=== PATIENT | male | born 1955 | race Hispanic/Latino ===

== ENCOUNTER → 2016-06-08 | Outpatient (REF) | payer OTHER ==
[2016-06-08 21:30] LABS: RETIC HEMOGLOBIN CONTENT CHr 30.7 PG (24-36); RETICULOCYTE ABSOLUTE ADVIA212 95 x10(9)/L (17-77)
[2016-06-08 21:36] LABS: REASON FOR REVIEW COMPREHENSIVE REVIEW
[2016-06-09 09:48] LABS: CONTROL LINE INT CTR LINE PRESENT; HIV SCRN NEGATIVE (NEGATIVE); HIV SCRN1 NEGATIVE (NEGATIVE)
== END ==
LOC: M LAB REF 16:58
PROVIDERS: ATTEND Internal Medicine Medical Oncology
DX: D61.818 Other pancytopenia (principal); D72.819 Decreased white blood cell count, unspecified
CPT/HCPCS: 85046; 86038; 86705; 87340; 87806; G0472

== ENCOUNTER → 2016-06-10 | Outpatient (CLI) | payer OTHER ==
--- NOTE | 2016-06-10 12:02 | REP ---
Left upper quadrant sonography: History: Splenomegaly. Findings: There is massive splenomegaly. The spleen is homogeneous. Its dimensions are 28.0 x 10.8 x 22.0 cm. No focal splenic lesion is seen. No ascites is seen. Limited images of the kidney are obtained. The left kidney is somewhat displaced by the splenomegaly. Its dimensions are 13.9 x 5.9 x 6.0 cm. There is no evidence of hydronephrosis cyst or mass in the left kidney. Impression: Massive splenomegaly. No focal splenic lesion. Signed by Rishi Peguero MD 06/10/2016 01:55 P
== END ==
LOC: M RAD 07:57
PROVIDERS: ATTEND Internal Medicine Medical Oncology
DX: R16.1 Splenomegaly, not elsewhere classified (principal)

== ENCOUNTER → 2016-07-06 | Outpatient (REF) | payer OTHER | LOC: M LAB REF 16:48 | PROVIDERS: ATTEND Internal Medicine Medical Oncology | DX: C95.90 Leukemia, unspecified not having achieved remission (principal) ==

== ENCOUNTER → 2016-07-23 | Outpatient (CLI) | payer OTHER, SELFPAY ==
--- NOTE | 2016-07-23 16:35 | REP ---
Abdominal MRI scanning without and with IV gadolinium: History: Evaluate portal hypertension. Splenomegaly. Comparison sonography June 10, 2016. Technique: Coronal and axial imaging planes are utilized. T1 and T2-weighted scans were obtained with sequences including spin echo, turbo spin-echo, in and out of phase, and post gadolinium enhanced sequentially obtained 2-D gradient echo T1-weighted fat sat images. Gadolinium enhancement dose is 23 mL of intravenous ProHance. MRI findings: Precontrast T2-weighted imaging confirms the presence of marked splenomegaly. The spleen measures 22 cm in craniocaudal span. No focal splenic lesion is seen. The liver is not enlarged overall. The left lobe does not appear particularly hypertrophied. Right lobe is relatively small. No focal hepatic mass lesion is seen. There is a T2 hyperintense 10 mm cyst in the posterior segment of the right lobe of the liver. There are prominent venous collaterals in the left upper quadrant of the abdomen near the renal hilus. The left renal vein and the splenic vein are both prominent in size. The portal vein does not appear dilated. No cholelithiasis is appreciated. No pancreatic abnormalities observed. On post gadolinium enhanced images, no hepatic or splenic lesion is observed. The left upper quadrant venous collaterals opacify homogeneously. Impression: Splenomegaly and visceral venous collaterals in the left upper quadrant compatible with portal hypertension. No focal hepatic or splenic lesion is seen. There is moderate to marked splenomegaly. Signed by Rishi Peguero MD 07/23/2016 05:02 P
== END ==
LOC: M RAD 13:36
PROVIDERS: ATTEND Internal Medicine Medical Oncology
DX: R16.1 Splenomegaly, not elsewhere classified (principal)
CPT/HCPCS: 74183; A9576

== ENCOUNTER → 2016-09-13 | Outpatient (CLI) | payer OTHER ==
[~2016-09-13] MED LIST: ISOVUE-370 76% 100ML VIAL (Q9967) As Ordered ONE
--- NOTE | 2016-09-13 13:40 | REP ---
CT angiogram of the neck with IV contrast: History: Aneurysm of the carotid arteries. No comparison CT angiogram. Carotid duplex sonography from March 24, 2016 was interpreted showing minimal atherosclerotic plaquing. CT contrast dose: 75 ml of intravenous Isovue 370. CT technique: Helical scanning is acquired and 2 mm axial images are reformatted. Coronal and sagittal multiplanar re-formation images are generated and reviewed. Coronal MIP and bilateral internal carotid artery curved MIP images are reformatted. 3-D surface rendered color imaging is generated. CT angiographic findings: There is a peculiar pattern of innumerable calcifications involving the skin of the face, head and neck region in this patient consistent with chronic dermatologic condition. The thoracic aorta contains a few areas of calcification. The innominate and left carotid artery have a common origin from the thoracic aorta, bovine arch configuration as a variant. The subclavian arteries are unremarkable bilaterally. There is no evidence of common or internal carotid artery aneurysm on either side. Vertebral arteries are patent. There is mild tortuosity of the internal carotid arteries bilaterally. There is mild calcific plaquing at the carotid bifurcations on both sides but no high-grade stenosis is seen on either side. The distal internal carotid arteries are unremarkable. The basilar artery appears intact. Impression: 1. Mild atherosclerotic calcific plaquing and tortuosity of the carotid arteries bilaterally. No evidence of aneurysm or significant stenosis. 2. Incidental evidence of chronic dermatologic condition with innumerable multifocal dermal calcifications. Signed by Rishi Peguero MD 09/13/2016 03:43 P
== END ==
LOC: M RAD 10:45
PROVIDERS: ATTEND Physician Assistant
DX: I72.0 Aneurysm of carotid artery (principal)
CPT/HCPCS: 70498; Q9967

== ENCOUNTER → 2016-09-27 | Outpatient (REF) | payer OTHER ==
[2016-09-27 13:25] LABS: TOTAL PROTEIN 6.6 GM/DL (6.4-8.2)
[2016-09-28 12:42] LABS: ALBUMIN 3.48 GM/DL (3.29-5.55); ALBUMIN % 52.8 % (55.8-66.1); GAMMA GLOBULIN % 21.8 % (11.1-18.8)
[2016-09-29 00:10] LABS: CYTOMEGALOVIRUS IgG ANTIBODY <0.60 U/mL (0.00-0.59)
== END ==
LOC: M LAB REF 12:48
PROVIDERS: ATTEND Internal Medicine Medical Oncology
DX: D72.819 Decreased white blood cell count, unspecified (principal)

== ENCOUNTER → 2017-10-18 | Outpatient (REF) | payer BC ==
[2017-10-18 12:04] LABS: BASO % 1.5 % (0.0-1.0); EOS # 0.3 10^3/uL (0.0-0.50); EOS % 12.4 % (0.0-3.0); HEMATOCRIT 40.9 % (42.0-52.0); HEMOGLOBIN 13.2 g/dl (13.5-17.5); IMMATURE GRANULOCYTE % 0.4 % (0-3.0); LYMPH # 0.4 10^3/uL (1.5-4.5); MEAN CORPUSCULAR HEMOGLOBIN 29.8 pg (27.0-33.0); MEAN CORPUSCULAR HGB CONC 32.3 g/dl (32.0-36.5); MEAN CORPUSCULAR VOLUME 92.3 fl (80.0-96.0); MONO # 0.2 10^3/uL (0.0-0.8); MONO % 6.9 % (0.0-5.0); NEUTROPHILS # 1.6 10^3/uL (1.8-7.7); NEUTROPHILS % 61.8 % (36.0-66.0); RED BLOOD COUNT 4.43 10^6/uL (4.30-6.10); RED CELL DISTRIBUTION WIDTH 16.9 % (11.5-14.5); WHITE BLOOD COUNT 2.6 10^3/uL (4.0-10.0)
[2017-10-18 12:06] LABS: PLATELET COUNT, AUTOMATED 65 10^3/uL (150-450)
[2017-10-18 12:08] LABS: IMMATURE PLATELET FRACTION % 4.3 % (0.0-10.9)
[2017-10-18 12:15] LABS: PROTHROMBIN TIME 18.5 SECONDS (12.4-14.5)
[2017-10-18 12:16] LABS: ALBUMIN 3.2 GM/DL (3.2-5.2); ALBUMIN/GLOBULIN RATIO 0.84 (1.00-1.93); ALKALINE PHOSPHATASE 81 U/L (45-117); ALT/SGPT 34 U/L (12-78); ANION GAP 6 MEQ/L (8-16); AST/SGOT 49 U/L (7-37); BILIRUBIN,DIRECT 0.7 MG/DL (0.0-0.2); BILIRUBIN,TOTAL 1.6 MG/DL (0.2-1.0); BLOOD UREA NITROGEN 6 MG/DL (7-18); CALCIUM LEVEL 8.6 MG/DL (8.8-10.2); CARBON DIOXIDE LEVEL 29 MEQ/L (21-32); CHLORIDE LEVEL 109 MEQ/L (98-107); CHOLESTEROL LEVEL 159 MG/DL (<200); CHOLESTEROL RISK RATIO 2.271 (<5); CREATININE FOR GFR 0.53 MG/DL (0.70-1.30); GAMMA GLUTAMYLTRANSPEPTIDASE 70 U/L (15-85); GLOMERULAR FILTRATION RATE > 60.0 (>49); GLUCOSE, FASTING 111 MG/DL (70-100); HDL CHOLESTEROL 70 MG/DL (>40); LDH LACTATE DEHYDROGENASE 297 U/L (87-241); LDL CHOLESTEROL 74.2 MG/DL (<100); MAGNESIUM LEVEL 1.8 MG/DL (1.8-2.4); NON-HDL-C 89 MG/DL; PARTIAL THROMBOPLASTIN TIME 34.4 SECONDS (26.8-37.9); POTASSIUM SERUM 4.1 MEQ/L (3.5-5.1); SODIUM LEVEL 144 MEQ/L (136-145); TRIGLYCERIDES LEVEL 74 MG/DL (<150)
[2017-10-18 12:18] LABS: PTH INTACT 42.9 PG/ML (18.5-88.0)
[2017-10-18 12:22] LABS: ESTIMATED AVERAGE GLUCOSE 108 MG/DL (60-110); HEMOGLOBIN A1c 5.4 %
[2017-10-18 12:29] LABS: AMMONIA 108 uMOL/L (<32)
[2017-10-18 12:45] LABS: TOTAL 25(OH) VITAMIN D 5.8 NG/ML (30.0-100.0)
[2017-10-18 15:37] LABS: APPEARANCE, URINE CLEAR (CLEAR); BACTERIA, URINE AUTO NEGATIVE (NEGATIVE); BILIRUBIN, URINE AUTO NEGATIVE (NEGATIVE); BLOOD, URINE BLOOD NEGATIVE (NEGATIVE); COLOR, URINE YELLOW (YELLOW); GLUCOSE, URINE (UA) AUTO NEGATIVE (NEGATIVE); KETONE, URINE AUTO NEGATIVE (NEGATIVE); LEUKOCYTE ESTERASE, URINE AUTO NEGATIVE (NEGATIVE); NITRITE, URINE AUTO NEGATIVE (NEGATIVE); PROTEIN, URINE AUTO NEGATIVE (NEGATIVE); RBC, URINE AUTO 4 /HPF (0-3); SPECIFIC GRAVITY URINE AUTO 1.017 (1.002-1.035); SQUAMOUS EPITHELIAL CELL UR AU 0 /HPF (0-6); WBC, URINE AUTO 1 /HPF (0-3)
[2017-10-21 00:07] LABS: GLYCOPROTEIN IV ANTIBODY Negative (Negative); HLA CLASS 1 ANTIBODY Negative (Negative); IIb/IIIa ANTIBODY Negative (Negative); Ia/IIa ANTIBODY Positive (Negative); Ib/IX ANTIBODY Negative (Negative)
== END ==
LOC: M SFHCPLAZ 09:59
DX: R16.1 Splenomegaly, not elsewhere classified (principal); K76.6 Portal hypertension; R73.09 Other abnormal glucose; Z13.220 Encounter for screening for lipoid disorders; D69.6 Thrombocytopenia, unspecified; E55.9 Vitamin D deficiency, unspecified
CPT/HCPCS: 82140

== ENCOUNTER → 2017-12-02 | Outpatient (CLI) | payer BC ==
[2017-12-02 12:47] LABS: ALBUMIN 3.3 GM/DL (3.2-5.2); ALBUMIN/GLOBULIN RATIO 0.89 (1.00-1.93); ALKALINE PHOSPHATASE 71 U/L (45-117); ALT/SGPT 34 U/L (12-78); ANION GAP 7 MEQ/L (8-16); AST/SGOT 65 U/L (7-37); BLOOD UREA NITROGEN 7 MG/DL (7-18); CALCIUM LEVEL 8.4 MG/DL (8.8-10.2); CARBON DIOXIDE LEVEL 27 MEQ/L (21-32); CHLORIDE LEVEL 106 MEQ/L (98-107); CREATININE FOR GFR 0.67 MG/DL (0.70-1.30); GLOMERULAR FILTRATION RATE > 60.0 (>49); GLUCOSE, FASTING 110 MG/DL (70-100); POTASSIUM SERUM 4.7 MEQ/L (3.5-5.1); SODIUM LEVEL 140 MEQ/L (136-145)
[2017-12-02 13:30] LABS: BILIRUBIN,DIRECT 1.1 MG/DL (0.0-0.2)
== END ==
LOC: M LAB 11:32
DX: R94.5 Abnormal results of liver function studies (principal)
CPT/HCPCS: 82248

== ENCOUNTER → 2017-12-06 | Outpatient (CLI) | payer BC | LOC: M CARPUL 11:32 | DX: I35.8 Other nonrheumatic aortic valve disorders (principal) | CPT/HCPCS: 93306 ==

== ENCOUNTER → 2017-12-16 | Outpatient (CLI) | payer BC ==
[2017-12-16 12:19] LABS: IRON (FE) 48 UG/DL (65-175); PERCENT SATURATION 12.8 % (19.7-50.0); TOTAL IRON BINDING CAPACITY 374 UG/DL (250-450)
[2017-12-16 12:21] LABS: HEPATITIS B SURFACE ANTIGEN NEGATIVE (NEGATIVE)
[2017-12-16 12:48] LABS: HEPATITIS C VIRUS ABY INDEX 0.1 INDEX (<0.8)
[2017-12-16 12:49] LABS: HEPATITIS B CORE ANTIBODY IGM NEGATIVE (NEGATIVE)
[2017-12-16 12:50] LABS: HEPATITIS A ANTIBODY IGM NEGATIVE (NEGATIVE)
[2017-12-22 00:08] LABS: ANCA-ATYPICAL <1:20 titer (Neg:<1:20); ANTI-MITOCHONDRIAL ANTIBODY 10.7 Units (0.0-20.0); ANTINUCLEAR ANTIBODIES DIRECT Negative (Negative); CERULOPLASMIN 19.6 mg/dL (16.0-31.0); CYTOPLASMIC NEUTROP AB ANCA-C <1:20 titer (Neg:<1:20); PERINUCLEAR AB ANCA-P <1:20 titer (Neg:<1:20)
== END ==
LOC: M LAB 11:09
DX: R94.5 Abnormal results of liver function studies (principal)
CPT/HCPCS: 83550

== ENCOUNTER → 2018-01-04 | Outpatient (REF) | payer BC ==
[2018-01-04 12:40] LABS: EOS # 0.2 10^3/uL (0.0-0.50); EOS % 8.2 % (0.0-3.0); HEMATOCRIT 40.5 % (42.0-52.0); HEMOGLOBIN 13.5 g/dl (13.5-17.5); LYMPH # 0.4 10^3/uL (1.5-4.5); LYMPH % 19.7 % (24.0-44.0); MEAN CORPUSCULAR HEMOGLOBIN 30.8 pg (27.0-33.0); MEAN CORPUSCULAR HGB CONC 33.3 g/dl (32.0-36.5); MEAN CORPUSCULAR VOLUME 92.5 fl (80.0-96.0); MONO # 0.2 10^3/uL (0.0-0.8); MONO % 8.2 % (0.0-5.0); NEUTROPHILS # 1.3 10^3/uL (1.8-7.7); NEUTROPHILS % 62.9 % (36.0-66.0); RED BLOOD COUNT 4.38 10^6/uL (4.30-6.10); RED CELL DISTRIBUTION WIDTH 16.7 % (11.5-14.5); WHITE BLOOD COUNT 2.1 10^3/uL (4.0-10.0)
[2018-01-04 12:42] LABS: PROTHROMBIN TIME 18.4 SECONDS (12.1-14.4)
[2018-01-04 12:43] LABS: PARTIAL THROMBOPLASTIN TIME 33.7 SECONDS (25.4-37.6)
[2018-01-04 12:45] LABS: PLATELET COUNT, AUTOMATED 49 10^3/uL (150-450)
[2018-01-04 12:46] LABS: IMMATURE PLATELET FRACTION % 3.8 % (0.0-10.9)
[2018-01-04 14:19] LABS: PTH INTACT 30.4 PG/ML (18.5-88.0); TOTAL 25(OH) VITAMIN D 18.5 NG/ML (30.0-100.0)
[2018-01-04 14:42] LABS: ALBUMIN 3.1 GM/DL (3.2-5.2); ALBUMIN/GLOBULIN RATIO 0.79 (1.00-1.93); ALKALINE PHOSPHATASE 65 U/L (45-117); ALT/SGPT 35 U/L (12-78); ANION GAP 9 MEQ/L (8-16); AST/SGOT 51 U/L (7-37); BILIRUBIN,TOTAL 3.2 MG/DL (0.2-1.0); BLOOD UREA NITROGEN 7 MG/DL (7-18); CALCIUM LEVEL 8.8 MG/DL (8.8-10.2); CARBON DIOXIDE LEVEL 27 MEQ/L (21-32); CHLORIDE LEVEL 106 MEQ/L (98-107); CREATININE FOR GFR 0.45 MG/DL (0.70-1.30); FREE T4 0.97 NG/DL (0.76-1.46); GLOMERULAR FILTRATION RATE > 60.0 (>49); GLUCOSE, FASTING 97 MG/DL (70-100); NT-PRO BNP 46 PG/ML (<125); SODIUM LEVEL 142 MEQ/L (136-145)
[2018-01-04 15:47] LABS: ESTIMATED AVERAGE GLUCOSE 105 MG/DL (60-110); HEMOGLOBIN A1c 5.3 %
[2018-01-05 14:18] LABS: INSULIN LEVEL 28.5 uIU/mL (2.6-24.9)
== END ==
LOC: M SFHCPLAZ 09:54
DX: E55.9 Vitamin D deficiency, unspecified (principal); D70.9 Neutropenia, unspecified; K76.6 Portal hypertension; R73.01 Impaired fasting glucose
CPT/HCPCS: 83525

== ENCOUNTER 2018-01-24 10:11 | Day surgery (SDC) | payer BC ==
[~2018-01-24 10:11] MED LIST changes: -ISOVUE-370 76% 100ML VIAL (Q9967) As Ordered ONE; +LIDOCAINE 2% INJ 100 MG/5 ML SDV (FOR ANES.) As Ordered; +PROPOFOL 200 MG/20 ML VIAL As Ordered; +fentaNYL 100 MCG/2 ML INJECTION (J3010) As Ordered
[2018-01-24] MEDS: NS 1,000 ML IV ×2 (11:32)
[2018-01-24] MEDS ORDERED: METOPROLOL 5 MG/5 ML VIAL As Ordered ×2 (13:25)
[2018-01-24] MEDS ORDERED: ESMOLOL INJ 100MG/10ML VIAL As Ordered ×2 (13:25)
[2018-01-24] MEDS ORDERED: PROPOFOL 200 MG/20 ML VIAL As Ordered ×4 (13:30→13:31)
== END 2018-01-24 14:31 | disposition home or self-care (01) ==
LOC: M OPP 10:11
DX: Z12.11 Encounter for screening for malignant neoplasm of colon (principal); K64.8 Other hemorrhoids; K74.60 Unspecified cirrhosis of liver; I85.10 Secondary esophageal varices without bleeding; K29.70 Gastritis, unspecified, without bleeding; B96.81 Helicobacter pylori [H. pylori] as the cause of diseases classified elsewhere; K76.6 Portal hypertension; I10 Essential (primary) hypertension; R16.1 Splenomegaly, not elsewhere classified; D72.819 Decreased white blood cell count, unspecified; D69.6 Thrombocytopenia, unspecified; M19.90 Unspecified osteoarthritis, unspecified site; R06.83 Snoring
CPT/HCPCS: G0121

== ENCOUNTER → 2018-01-31 | Outpatient (CLI) | payer BC | LOC: M RAD 07:13 | DX: K74.60 Unspecified cirrhosis of liver (principal) | CPT/HCPCS: 76705 ==

== ENCOUNTER → 2018-02-13 | Outpatient (CLI) | payer BC ==
[2018-02-13 17:00] LABS: INR 1.57
[2018-02-13 17:01] LABS: PARTIAL THROMBOPLASTIN TIME 36.1 SECONDS (25.4-37.6)
[2018-02-13 17:14] LABS: ALBUMIN 3.4 GM/DL (3.2-5.2); ALBUMIN/GLOBULIN RATIO 0.92 (1.00-1.93); ALKALINE PHOSPHATASE 65 U/L (45-117); ALT/SGPT 38 U/L (12-78); AST/SGOT 68 U/L (7-37); BILIRUBIN,DIRECT 1.1 MG/DL (0.0-0.2); BILIRUBIN,TOTAL 3.4 MG/DL (0.2-1.0); GAMMA GLUTAMYLTRANSPEPTIDASE 63 U/L (15-85); TOTAL PROTEIN 7.1 GM/DL (6.4-8.2)
[2018-02-14 11:21] LABS: ALPHA FETOPROTEIN TUMOR QUANT 3.7 NG/ML (<8.1)
== END ==
LOC: M LAB 15:46
DX: K74.60 Unspecified cirrhosis of liver (principal)
CPT/HCPCS: 82977

== ENCOUNTER → 2018-02-13 | Outpatient (CLI) | payer BC ==
[2018-02-13 16:45] LABS: BASO % 1.3 % (0.0-1.0); EOS # 0.3 10^3/uL (0.0-0.50); HEMATOCRIT 42.5 % (42.0-52.0); HEMOGLOBIN 14.1 g/dl (13.5-17.5); IMMATURE GRANULOCYTE % 0.4 % (0-3.0); LYMPH # 0.4 10^3/uL (1.5-4.5); LYMPH % 18.4 % (24.0-44.0); MEAN CORPUSCULAR HGB CONC 33.2 g/dl (32.0-36.5); MEAN CORPUSCULAR VOLUME 93.4 fl (80.0-96.0); MONO # 0.2 10^3/uL (0.0-0.8); NEUTROPHILS # 1.4 10^3/uL (1.8-7.7); NEUTROPHILS % 61.9 % (36.0-66.0); RED BLOOD COUNT 4.55 10^6/uL (4.30-6.10); RED CELL DISTRIBUTION WIDTH 16.8 % (11.5-14.5); RETIC HEMOGLOBIN EQUIVALENT 34.8 pg (24-36); RETICULOCYTE # 64.2 10^9/L (17-77); RETICULOCYTE % 1.4 % (0.5-1.5); WHITE BLOOD COUNT 2.3 10^3/uL (4.0-10.0)
[2018-02-13 16:55] LABS: ESTIMATED AVERAGE GLUCOSE 114 MG/DL (60-110); HEMOGLOBIN A1c 5.6 %
[2018-02-13 17:17] LABS: ALBUMIN 3.3 GM/DL (3.2-5.2); ALBUMIN/GLOBULIN RATIO 0.85 (1.00-1.93); ALKALINE PHOSPHATASE 65 U/L (45-117); ALT/SGPT 39 U/L (12-78); ANION GAP 8 MEQ/L (8-16); AST/SGOT 66 U/L (7-37); BILIRUBIN,TOTAL 3.5 MG/DL (0.2-1.0); BLOOD UREA NITROGEN 6 MG/DL (7-18); CALCIUM LEVEL 8.2 MG/DL (8.8-10.2); CARBON DIOXIDE LEVEL 30 MEQ/L (21-32); CHLORIDE LEVEL 107 MEQ/L (98-107); CREATININE FOR GFR 0.59 MG/DL (0.70-1.30); FERRITIN 35 NG/ML (26-388); GLOMERULAR FILTRATION RATE > 60.0 (>49); GLUCOSE, FASTING 95 MG/DL (70-100); IRON (FE) 260 UG/DL (65-175); MAGNESIUM LEVEL 1.8 MG/DL (1.8-2.4); PERCENT SATURATION 74.5 % (19.7-50.0); POTASSIUM SERUM 3.6 MEQ/L (3.5-5.1); SODIUM LEVEL 145 MEQ/L (136-145); TOTAL IRON BINDING CAPACITY 349 UG/DL (250-450); TOTAL PROTEIN 7.2 GM/DL (6.4-8.2)
[2018-02-13 17:25] LABS: PTH INTACT 43.9 PG/ML (18.5-88.0); TOTAL 25(OH) VITAMIN D 27.5 NG/ML (30.0-100.0)
[2018-02-13 17:34] LABS: PLATELET COUNT, AUTOMATED 71 10^3/uL (150-450); POS COUNT POS FLAG
[2018-02-13 17:35] LABS: IMMATURE PLATELET FRACTION % 4.3 % (0.0-10.9)
== END ==
LOC: M LAB 15:44
DX: D69.6 Thrombocytopenia, unspecified (principal)
CPT/HCPCS: 83550

== ENCOUNTER → 2018-02-27 | Outpatient (CLI) | payer BC ==
[~2018-02-27] MED LIST changes: +GASTROGRAFIN SOLUTION 30ML (Q9963) As Ordered; +ISOVUE-370 76% 100ML VIAL (Q9967) As Ordered; -LIDOCAINE 2% INJ 100 MG/5 ML SDV (FOR ANES.) As Ordered; -PROPOFOL 200 MG/20 ML VIAL As Ordered; -fentaNYL 100 MCG/2 ML INJECTION (J3010) As Ordered
== END ==
LOC: M RAD 07:49
DX: R16.1 Splenomegaly, not elsewhere classified (principal); R94.5 Abnormal results of liver function studies; K76.6 Portal hypertension; K74.60 Unspecified cirrhosis of liver; K76.89 Other specified diseases of liver; K57.30 Diverticulosis of large intestine without perforation or abscess without bleeding
CPT/HCPCS: Q9963

== ENCOUNTER → 2018-09-21 | Outpatient (CLI) | payer BC ==
[~2018-09-21] MED LIST changes: -GASTROGRAFIN SOLUTION 30ML (Q9963) As Ordered; +IRON27TA2 PO; -ISOVUE-370 76% 100ML VIAL (Q9967) As Ordered; +VITA50005 PO
[2018-09-21 15:20] LABS: BASO % 0.5 % (0.0-1.0); EOS # 0.1 10^3/uL (0.0-0.50); EOS % 6.5 % (0.0-3.0); HEMATOCRIT 41.8 % (42.0-52.0); HEMOGLOBIN 13.9 g/dl (13.5-17.5); LYMPH # 0.4 10^3/uL (1.5-4.5); LYMPH % 21.2 % (24.0-44.0); MEAN CORPUSCULAR HEMOGLOBIN 31.4 pg (27.0-33.0); MEAN CORPUSCULAR HGB CONC 33.3 g/dl (32.0-36.5); MEAN CORPUSCULAR VOLUME 94.6 fl (80.0-96.0); MONO # 0.2 10^3/uL (0.0-0.8); MONO % 8.2 % (0.0-5.0); NEUTROPHILS # 1.2 10^3/uL (1.8-7.7); NEUTROPHILS % 63.1 % (36.0-66.0); RED BLOOD COUNT 4.42 10^6/uL (4.30-6.10)
[2018-09-21 15:46] LABS: ALBUMIN 3.2 GM/DL (3.2-5.2); ALT/SGPT 31 U/L (12-78); BLOOD UREA NITROGEN 5 MG/DL (7-18); CALCIUM LEVEL 8.7 MG/DL (8.8-10.2); CARBON DIOXIDE LEVEL 30 MEQ/L (21-32); CHLORIDE LEVEL 110 MEQ/L (98-107); CREATININE FOR GFR 0.57 MG/DL (0.70-1.30); FERRITIN 52 NG/ML (26-388); GLOMERULAR FILTRATION RATE > 60.0 (>49); GLUCOSE, FASTING 126 MG/DL (70-100); IRON (FE) 47 UG/DL (65-175); MAGNESIUM LEVEL 1.8 MG/DL (1.8-2.4); SODIUM LEVEL 143 MEQ/L (136-145); TOTAL IRON BINDING CAPACITY 336 UG/DL (250-450); TOTAL PROTEIN 6.5 GM/DL (6.4-8.2)
[2018-09-21 15:55] LABS: PTH INTACT 36.1 PG/ML (18.5-88.0); TOTAL 25(OH) VITAMIN D 11.6 NG/ML (30.0-100.0)
[2018-09-21 15:56] LABS: HEMOGLOBIN A1c 5.7 %
[2018-09-21 16:23] LABS: PLATELET COUNT, AUTOMATED 58 10^3/uL (150-450); WHITE BLOOD COUNT 1.8 10^3/uL (4.0-10.0)
== END ==
LOC: M LAB 14:47
PROVIDERS: ATTEND Nurse Practitioner Family
DX: E55.9 Vitamin D deficiency, unspecified (principal); D69.6 Thrombocytopenia, unspecified; K76.6 Portal hypertension; R73.01 Impaired fasting glucose; D50.9 Iron deficiency anemia, unspecified

== ENCOUNTER → 2018-09-21 | Outpatient (CLI) | payer BC ==
[2018-09-21 15:19] LABS: EOS # 0.1 10^3/uL (0.0-0.50); EOS % 6.1 % (0.0-3.0); HEMOGLOBIN 14.3 g/dl (13.5-17.5); LYMPH # 0.4 10^3/uL (1.5-4.5); LYMPH % 18.9 % (24.0-44.0); MEAN CORPUSCULAR HEMOGLOBIN 32.3 pg (27.0-33.0); MEAN CORPUSCULAR HGB CONC 33.3 g/dl (32.0-36.5); MEAN CORPUSCULAR VOLUME 97.1 fl (80.0-96.0); MONO # 0.2 10^3/uL (0.0-0.8); MONO % 9.2 % (0.0-5.0); NEUTROPHILS # 1.3 10^3/uL (1.8-7.7); NEUTROPHILS % 64.3 % (36.0-66.0); RED BLOOD COUNT 4.43 10^6/uL (4.30-6.10)
[2018-09-21 15:27] LABS: INR 1.4; PROTHROMBIN TIME 17.4 SECONDS (12.1-14.4)
[2018-09-21 15:46] LABS: ALBUMIN 3.3 GM/DL (3.2-5.2); ALT/SGPT 32 U/L (12-78); BLOOD UREA NITROGEN 6 MG/DL (7-18); CALCIUM LEVEL 8.8 MG/DL (8.8-10.2); CARBON DIOXIDE LEVEL 30 MEQ/L (21-32); CHLORIDE LEVEL 110 MEQ/L (98-107); CREATININE FOR GFR 0.57 MG/DL (0.70-1.30); GLOMERULAR FILTRATION RATE > 60.0 (>49); GLUCOSE, FASTING 127 MG/DL (70-100); POTASSIUM SERUM 4.1 MEQ/L (3.5-5.1); SODIUM LEVEL 143 MEQ/L (136-145); TOTAL PROTEIN 6.5 GM/DL (6.4-8.2)
[2018-09-21 16:22] LABS: PLATELET COUNT, AUTOMATED 54 10^3/uL (150-450)
== END ==
LOC: M LAB 14:44
PROVIDERS: ATTEND Internal Medicine Gastroenterology
DX: K74.60 Unspecified cirrhosis of liver (principal)

== ENCOUNTER → 2018-10-05 | Outpatient (CLI) | payer BC ==
[~2018-10-05] MED LIST changes: +PROHANCE 279.3MG/ML 15ML VIAL (A9576) As Ordered ONE; +PROHANCE 279.3MG/ML 5ML VIAL (A9576) As Ordered ONE
--- NOTE | 2018-10-05 11:33 | REP ---
MRI LIVER WITH AND WITHOUT CONTRAST: TECHNIQUE: Multiple axial and coronal sequences obtained prior to and following the intravenous administration of [address] 02/27/2018 and MRI of 07/23/2016. Liver is relatively small in size with micronodular contour and diffuse heterogeneous signal suggesting cirrhosis. 1 cm cyst is seen in the left lobe of the liver. There is an 8 mm cyst in the right lobe of the liver. There is no suspicious enhancing mass. There is no evidence of significant iron deposition in the liver. Gallbladder is contracted. There is no biliary dilatation. Spleen is enlarged with a length of approximately 22.6 cm. Length on prior MRI was 21.6 cm. Adrenals and pancreas appear unremarkable. Large varices are seen in the splenic hilum. Visualized kidneys are unremarkable. There is no abdominal aortic aneurysm. I see no significant adenopathy or ascites. IMPRESSION: Findings compatible with cirrhosis of the liver. Small cyst is seen in both the right and left lobes. No suspicious mass or significant iron deposition. Gallbladder is contracted. There is significant splenomegaly with splenorenal varices present. Electronically Signed by Alexander Mcadams MD 10/05/2018 04:31 P
== END ==
LOC: M RAD 07:18
PROVIDERS: ATTEND Internal Medicine Gastroenterology
DX: K74.60 Unspecified cirrhosis of liver (principal); K76.89 Other specified diseases of liver
CPT/HCPCS: 74183; A9576

== ENCOUNTER → 2018-11-21 | Outpatient (CLI) | payer BC ==
[~2018-11-21] MED LIST changes: +FERR325T82; +OMEP-221; -PROHANCE 279.3MG/ML 15ML VIAL (A9576) As Ordered ONE; -PROHANCE 279.3MG/ML 5ML VIAL (A9576) As Ordered ONE
[2018-11-21 12:11] LABS: ALBUMIN 3.3 GM/DL (3.2-5.2); BLOOD UREA NITROGEN 14 MG/DL (7-18); CALCIUM LEVEL 8.5 MG/DL (8.8-10.2); CARBON DIOXIDE LEVEL 34 MEQ/L (21-32); CHLORIDE LEVEL 103 MEQ/L (98-107); CREATININE FOR GFR 0.68 MG/DL (0.70-1.30); GLOMERULAR FILTRATION RATE > 60.0 (>49); GLUCOSE, FASTING 86 MG/DL (70-100); MAGNESIUM LEVEL 1.9 MG/DL (1.8-2.4); NT-PRO BNP 47 PG/ML (<125); POTASSIUM SERUM 3.8 MEQ/L (3.5-5.1); SODIUM LEVEL 141 MEQ/L (136-145)
== END ==
LOC: M LAB 10:32
PROVIDERS: ATTEND Internal Medicine Cardiovascular Disease
DX: I50.32 Chronic diastolic (congestive) heart failure (principal)

== ENCOUNTER 2020-01-21 12:30 | Inpatient (IN) | payer SELFPAY ==
[~2020-01-21] VITALS: Ht 170.2 cm; Wt 96.7 kg
[~2020-01-21 12:30] MED LIST changes: +FUROSEMIDE 40MG/4ML VIAL (J1940) IV SCH
--- NOTE | 2020-01-21 13:08 | REPVR ---
PROCEDURE INFORMATION: Exam: XR Chest, 1 View Exam date and time: 01/21/2020 12:53 PM Age: 64 years old Clinical indication: Cough and dyspnea; Additional info: Dyspnea/cough TECHNIQUE: Imaging protocol: XR of the chest Views: 1 view. COMPARISON: No relevant prior studies available. FINDINGS: Lungs: There is mild pulmonary congestive changes or perhaps early edema. Pleural space: Costophrenic angles appears slightly blunted. Heart/Mediastinum: There is cardiomegaly. Bones/joints: Unremarkable. IMPRESSION: Suspect mild CHF. Electronically signed by: Jarret Brock On 01/21/2020 13:07:34 PM
[2020-01-21 13:16] LABS: VENOUS BASE EXCESS 5.9 (-2.0-2.0); VENOUS HCO3 32.7 MEQ/L (23.0-27.0); VENOUS O2 SATURATION 70.1 % (60.0-80.0); VENOUS PARTIAL PRESSURE CO2 54.2 mmHg (38.0-50.0); VENOUS PARTIAL PRESSURE O2 37.4 mmHg (30.0-50.0); VENOUS PH 7.399 UNITS (7.330-7.430); VENOUS STANDARD HCO3 28.9 MEQ/L; VENOUS TOTAL CO2 34.4 MEQ/L (24.0-28.0)
[2020-01-21 13:22] LABS: BASO % 0.5 % (0.0-1.0); EOS # 0.1 10^3/uL (0.0-0.5); EOS % 1.4 % (0.0-3.0); HEMATOCRIT 50.7 % (42.0-52.0); HEMOGLOBIN 17.2 g/dl (13.5-17.5); LYMPH # 0.3 10^3/uL (1.5-5.0); LYMPH % 3.9 % (24.0-44.0); MEAN CORPUSCULAR HEMOGLOBIN 33.3 pg (27.0-33.0); MEAN CORPUSCULAR HGB CONC 33.9 g/dl (32.0-36.5); MEAN CORPUSCULAR VOLUME 98.1 fl (80.0-96.0); MONO # 0.5 10^3/uL (0.0-0.8); NEUTROPHILS # 5.5 10^3/uL (1.5-8.5); NEUTROPHILS % 85.9 % (36.0-66.0); PLATELET COUNT, AUTOMATED 100 10^3/uL (150-450); RED BLOOD COUNT 5.17 10^6/uL (4.30-6.10); WHITE BLOOD COUNT 6.4 10^3/uL (4.0-10.0)
[2020-01-21] MEDS ORDERED: FUROSEMIDE 20MG/2ML VIAL (J1940) IV ONE (13:30)
[2020-01-21 13:35] LABS: INR 2.12; PROTHROMBIN TIME 24.3 SECONDS (11.8-14.0)
[2020-01-21 13:54] LABS: ALBUMIN 2.8 GM/DL (3.2-5.2); ALT/SGPT 31 U/L (12-78); BILIRUBIN,DIRECT 2.1 MG/DL (0.0-0.2); BILIRUBIN,TOTAL 6.2 MG/DL (0.2-1.0); BLOOD UREA NITROGEN 5 MG/DL (7-18); CALCIUM LEVEL 8.6 MG/DL (8.8-10.2); CARBON DIOXIDE LEVEL 33 MEQ/L (21-32); CHLORIDE LEVEL 99 MEQ/L (98-107); CK-MB VALUE MASS 1.6 NG/ML (<3.6); CPK CREATINE PHOSPHOKINASE 70 U/L (39-308); CREATININE FOR GFR 0.59 MG/DL (0.70-1.30); GLOMERULAR FILTRATION RATE > 60.0 (>49); GLUCOSE, FASTING 106 MG/DL (70-100); MB/CK RELATIVE INDEX 2.29 (< OR =4); NT-PRO BNP 735 PG/ML (<125); POTASSIUM SERUM 3.6 MEQ/L (3.5-5.1); SODIUM LEVEL 139 MEQ/L (136-145); TOTAL PROTEIN 6.9 GM/DL (6.4-8.2); TROPONIN I < 0.02 NG/ML (< 0.10)
[2020-01-21] MEDS: METOPROLOL 5 MG/5 ML VIAL IV SCH ×3 (14:04→14:36)
[2020-01-21] MEDS ORDERED: METOPROLOL TART 50 MG TAB PO ONE (14:15)
[2020-01-21 15:33] LABS: MAGNESIUM LEVEL 1.5 MG/DL (1.8-2.4)
[2020-01-21] MEDS ORDERED: MAG SULF 1GM/100ML (MAG RUN) 1 GM in IV 1 EA IV ONE (16:00)
[2020-01-21] MEDS ORDERED: ACETAMINOPHEN TAB 650MG DOSE (2X325MG) PO PRN (16:30)
[2020-01-21] MEDS ORDERED: ISOVUE-370 76% 100ML VIAL As Ordered ONE (16:33)
--- NOTE | 2020-01-21 16:55 | HPEPDOC ---
General Date of Admission 01/21/20 Date of Service: Jan 21, 2020 Chief Complaint The patient is a 64-year-old male admitted with a reason for visit of Diff Breathing. Source: Patient Timing/Duration: Day(s) Severity: Moderate History of Present Illness Patient 64 years old male with past medical history of cirrhosis, diastolic CHF, splenomegaly, neutropenia, thrombocytopenia, hypertension presented to the hospital with shortness of breath. Patient stated for past 34 weeks he has been having increased shortness of breath associated with leg swelling and fatigue. Also patient noticed increased abdominal girth. Patient didn't go to primary care physician on the regular basis because insurance issue. In emergency room patient was found to have lactic acid of 2.5, BNP is 735, creatinine 0.5, EKG showed atrial fibrillation with rapid ventricular rate. Chest x-ray showed cardiomegaly with pulmonary congestive changes. Home Medications No Active Prescriptions or Reported Meds Allergies Coded Allergies: No Known Allergies (Unverified , 01/19/18) Past Medical History Medical History MILD CONCENTRIC LVH, GRADE 1 DIASTOLIC DYSFUNCTION, LVEF 70%, LAE 46 MM, MODERATE PHTN, MODERATE AORTIC SCLEROSIS, MILD MR, MILDLY DILATED AORTIC ROOT/AA AND ARCH BY 11/2017 TTE-BERMUDEZ PROBABLE CIRRHOSIS 2 NAFLD (12/2017 -B/C/CHIP/AMA/ANCA PROFILE) C MARKED SPLENOMEGALY COMPATIBLE C PORTAL HTN BY 07/2016 MRI ABDOMEN NEUTROPENIA, CHRONIC; THROMBOCYTOPENIA-07/2016 BM BX S EVIDENCE LEUKEMIA/LYMPHOMA HYPERTENSION, ESSENTIAL R PROXIMAL COMMON CAROTID ARTERY ANEURYSM-DETECTED 07/[address] CARPENTER VITAMIN D DEFICIENCY GRADE II ESOPHAGEAL VARICES C BANDING - 01/[address] CHANDLER SMALL HEMORRHOIDS -01/2018 COLONOSCOPY -DR. Riley 2019 Surgical History GRADE II ESOPHAGEAL VARICES C BANDING - 01/[address] CHANDLER Family History I personally reviewed family history and found not pertinent Social History * Smoker: Denies Alcohol: occationally Drugs: denies A-FIB/CHADSVASC A-FIB History Current/History of A-Fib/PAF?: Yes Current PO Anticoag Therapy: No Age/Risk Factor Scoring CHADSVASC: CHADSVASC Response (Comments) Value Age Risk Factor Age < 65 years old 0 Gender Risk Factor Male 0 Hx of CHF Yes 1 Hx of HTN Yes 1 Total 2 Treatment Treatment ordered: Apixaban Review of Systems Constitutional: Denies: Chills, Fever Eyes: Denies: Pain, Vision change Skin: Denies: Rash, Lesions Pulmonary: Reports: Dyspnea Cardiovascular: Reports: Palpitations; Denies: Chest Pain Gastrointestinal: Denies: Nausea, Vomiting Genitourinary: Denies: Dysuria Endocrine: Denies: Polydipsia, Polyphagia Musculoskeletal: Denies: Neck Pain, Back Pain Neurological: Denies: Weakness Psych: Reports: Mood Normal Physical Examination General Exam: Positive: Alert, Cooperative ENT Exam: Positive: Atraumatic Neck Exam: Positive: Supple, JVD Chest Exam: Positive: Diminished Heart Exam: Positive: Irregular Rhythm Telemetry: Positive: Atrial fibrillation Abdomen Exam: Positive: Other (severe extended) Extremity Exam: Negative: Clubbing, Cyanosis Skin Exam: Positive: Nl turgor and temperature Neuro Exam: Positive: Normal Gait, Strength at 5/5 X4 ext, Cranial Nerves 3-12 NL Psych Exam: Positive: Mental status NL Vital Signs Vital Signs Date Time Temp Pulse Resp B/P (MAP) Pulse Ox O2 Delivery O2 Flow Rate FiO2 01/21/20 15:00 134 20 141/81 (101) 96 Room Air 01/21/20 12:31 97.8 Laboratory Data Labs 24H Laboratory Tests 2 01/21/20 13:05: Prothrombin Time 24.3H, Prothromb Time International Ratio 2.12, Anion Gap 7L, Glomerular Filtration Rate > 60.0, Calcium Level 8.6L, Magnesium Level 1.5L, Total Bilirubin 6.2H, Direct Bilirubin 2.1H, Aspartate Amino Transf (AST/SGOT) 47H, Alanine Aminotransferase (ALT/SGPT) 31, Alkaline Phosphatase 75, Total Creatine Kinase 70, Creatine Kinase MB 1.6, Creatine Kinase MB Relative Index 2.29, Troponin I < 0.02, AI-Ksd-D-Type Natriuretic Peptide 735H, Total Protein 6.9, Albumin 2.8L, Albumin/Globulin Ratio 0.7, Thyroid Stimulating Hormone (TSH) 2.610 01/21/20 13:06: Immature Granulocyte % (Auto) 0.3, Neutrophils (%) (Auto) 85.9H, Lymphocytes (%) (Auto) 3.9L, Monocytes (%) (Auto) 8.0H, Eosinophils (%) (Auto) 1.4, Basophils (%) (Auto) 0.5, Neutrophils # (Auto) 5.5, Lymphocytes # (Auto) 0.3L, Monocytes # (Auto) 0.5, Eosinophils # (Auto) 0.1, Basophils # (Auto) 0.0, Nucleated Red Blood Cells % (auto) 0.0, Blood Gas Bicarbonate Standard 28.9, Venous Blood pH 7.399, Venous Blood Partial Pressure CO2 54.2H, Venous Blood Partial Pressure O2 37.4, Venous Blood Total Carbon Dioxide 34.4H, Venous Blood HCO3 32.7H, Venous Blood Oxygen Saturation 70.1, Venous Blood Base Excess 5.9H, Lactic Acid Level 2.5*H 01/21/20 13:26: POC Glucose (Misc Panel) 107H, POC Sodium (Misc Panel) 140, POC Potassium (Misc Panel) 3.5, POC Chloride (Misc Panel) 94L, POC Total CO2 (Misc Panel) 30.0H, POC Blood Urea Nitrogen (Misc Panel 4L, POC Ionized Calcium (Misc Panel) 4.0L, POC Creatinine (Misc Panel) 0.6, POC Hematocrit (Misc Panel) 55.0H 01/21/20 13:28: POC Troponin I (Misc) 0.00 CBC/BMP Laboratory Tests 01/21/20 13:05 01/21/20 13:06 Microbiology Microbiology 01/21/20 Blood Culture, Received Pending 01/21/20 Blood Culture, Received Pending Assessment/Plan Patient 64 years old male with past medical history of cirrhosis, diastolic CHF, splenomegaly, neutropenia, thrombocytopenia, hypertension presented to the hospital with shortness of breath. Patient stated for past 34 weeks he has been having increased shortness of breath associated with leg swelling and fatigue. Also patient noticed increased abdominal girth. Patient didn't go to primary care physician on the regular basis because insurance issue. In emergency room p atient was found to have lactic acid of 2.5, BNP is 735, creatinine 0.5, EKG showed atrial fibrillation with rapid ventricular rate. Chest x-ray showed cardiomegaly with pulmonary congestive changes. Problems (1) Shortness of breath Status: Acute Problem Text: Secondary to CHF exacerbation and possible ascites (2) CHF (congestive heart failure) Status: Acute Problem Text: Most likely diastolic CHF Echo Is/Os Lasix IV (3) Cirrhosis of liver Status: Chronic Problem Text: Patient has history of NADFL CT abdomen/pelvis There is concern for ascites (4) Atrial fibrillation Status: Acute Problem Text: Metoprolol by mouth 3 times a day Lopressor IV 5 mg with parameters Targeted oral anticoagulation therapy Plan / VTE VTE Prophylaxis Ordered?: Yes EMMANUEL GLASGOW DO Jan 21, 2020 16:55
--- NOTE | 2020-01-21 17:26 | REPVR ---
PROCEDURE INFORMATION: Exam: CT Abdomen And Pelvis With Contrast Exam date and time: 01/21/2020 4:53 PM Age: 64 years old Clinical indication: Other: Ascitis TECHNIQUE: Imaging protocol: Computed tomography of the abdomen and pelvis with intravenous contrast. Radiation optimization: All CT scans at this facility use at least one of these dose optimization techniques: automated exposure control; mA and/or kV adjustment per patient size (includes targeted exams where dose is matched to clinical indication); or iterative reconstruction. Contrast material: ISOVUE 370; Contrast volume: 100 ml; Contrast route: INTRAVENOUS (IV); COMPARISON: SR CT ABD PELVIS W/O FOL BY WIT 02/27/2018 9:09 AM FINDINGS: Lungs: Bilateral basilar atelectasis. Pleural space: There are now bilateral pleural effusions, moderate on the right and small to moderate on the left. Liver: Stable liver cysts. Small liver with a nodular border suggestive of cirrhosis. This is appears more progressive than the previous exam. Gallbladder and bile ducts: Normal. No calcified stones. No ductal dilation. Pancreas: Normal. No ductal dilation. Spleen: The spleen is enlarged at 168 mm. Adrenals: Normal. No mass. Kidneys and ureters: Normal. No hydronephrosis. Stomach and bowel: Unremarkable. No obstruction. No mucosal thickening. Appendix: No evidence of appendicitis. Intraperitoneal space: There is diffuse ascites. Vasculature: There may be cavernous transformation of a thrombosed portal vein. Lymph nodes: Unremarkable. No enlarged lymph nodes. Bladder: Unremarkable as visualized. Reproductive: Unremarkable as visualized. Bones/joints: Arthritis, lithesis and a compression fracture of L1 is stable. Soft tissues: There is new soft tissue edema. Other findings: Numerous varicosities are again seen especially on the left. IMPRESSION: 1. Ascites with bilateral effusions and findings to suggest worsening liver disease. 2. 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 3. Splenomegaly. Electronically signed by: Jarret Brock On 01/21/2020 17:26:05 PM
[2020-01-21 18:00] VITALS: BP 152/78
[2020-01-21] MEDS: METOPROLOL 5 MG/5 ML VIAL IV PRN (18:46)
[2020-01-21] MEDS ORDERED: SLF 3 ML SYR IV PRN ×2 (19:00→21:30)
[2020-01-21 20:00] VITALS: BP 113/81
[2020-01-21] MEDS: APIXABAN 2.5 MG TAB (ELIQUIS) PO SCH (20:36)
[2020-01-21] MEDS: ATORVASTATIN 20 MG TAB PO SCH (20:36)
[2020-01-21] MEDS: SLF 3 ML SYR IV SCH (20:37)
[2020-01-21] MEDS ORDERED: METOPROLOL TART 25 MG TABLET PO SCH (21:00)
[2020-01-21] MEDS ORDERED: SLF 3 ML SYR IV SCH (22:00)
[2020-01-22] VITALS (7 sets, daily range): BP systolic 106–133; BP diastolic 62–88
[2020-01-22] MEDS: FUROSEMIDE 40MG/4ML VIAL (J1940) IV SCH ×2 (01:30→13:44)
[2020-01-22] MEDS: METOPROLOL 5 MG/5 ML VIAL IV PRN (03:43)
[2020-01-22] MEDS: SLF 3 ML SYR IV SCH ×3 (04:25→22:01)
[2020-01-22 06:12] LABS: HEMATOCRIT 46.4 % (42.0-52.0); HEMOGLOBIN 15.1 g/dl (13.5-17.5); MEAN CORPUSCULAR HEMOGLOBIN 32.7 pg (27.0-33.0); MEAN CORPUSCULAR HGB CONC 32.5 g/dl (32.0-36.5); MEAN CORPUSCULAR VOLUME 100.4 fl (80.0-96.0); RED BLOOD COUNT 4.62 10^6/uL (4.30-6.10); WHITE BLOOD COUNT 5.3 10^3/uL (4.0-10.0)
[2020-01-22 06:28] LABS: INR 2.74; PROTHROMBIN TIME 29.6 SECONDS (11.8-14.0)
[2020-01-22 06:40] LABS: ALBUMIN 2.6 GM/DL (3.2-5.2); ALT/SGPT 27 U/L (12-78); BILIRUBIN,TOTAL 5.4 MG/DL (0.2-1.0); BLOOD UREA NITROGEN 5 MG/DL (7-18); CALCIUM LEVEL 7.9 MG/DL (8.8-10.2); CARBON DIOXIDE LEVEL 36 MEQ/L (21-32); CHLORIDE LEVEL 99 MEQ/L (98-107); CREATININE FOR GFR 0.54 MG/DL (0.70-1.30); GLOMERULAR FILTRATION RATE > 60.0 (>49); GLUCOSE, FASTING 117 MG/DL (70-100); MAGNESIUM LEVEL 1.5 MG/DL (1.8-2.4); POTASSIUM SERUM 3.4 MEQ/L (3.5-5.1); SODIUM LEVEL 138 MEQ/L (136-145); TOTAL PROTEIN 5.8 GM/DL (6.4-8.2)
[2020-01-22 06:46] LABS: PLATELET COUNT, AUTOMATED 84 10^3/uL (150-450)
[2020-01-22] MEDS ORDERED: MAG SULF 1GM/100ML (MAG RUN) 1 GM in IV 1 EA IV ONE (08:00)
[2020-01-22] MEDS: POTASSIUM CHLORIDE 10 MEQ SR TABLET PO SCH (08:18)
[2020-01-22] MEDS: METOPROLOL TART 50 MG TAB PO SCH ×3 (08:18→22:00)
--- NOTE | 2020-01-22 13:37 | IPNPDOC ---
Text Note Date of Service The patient was seen on 01/22/20. NOTE Subjective: Patient continues to have abdominal distention. He denied fever, chills, nausea, or dysuria Objective: GENERAL APPEARANCE: NAD HEENT: no scleral icterus, no JVD, EOMI CARDIOVASCULAR: Irregularly irregular, tachycardic rate 120 LUNGS: Diminished lung sounds ABDOMEN: severely distended, nontender MUSCULOSKELETAL: no cyanosis, no swelling INTEGUMENT: no generalized palor NEUROLOGICAL: cranial nerve function from 2-12 intact intact, follows commands, speech not dysarthric Shortness of breath Secondary to CHF exacerbation and ascites (2) CHF (congestive heart failure) Most likely diastolic CHF Await Echo Is/Os Lasix IV (3) Cirrhosis of liver Patient has history of NADFL CT abdomen/pelvis showed Ascites with bilateral effusions and findings to suggest worsening liver disease. 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 Splenomegaly. Spironolactone paracentesis tomorrow We'll check alpha-fetoprotein, there is concern for malignancy Thrombosed portal vein can be manifestation of malignancy We'll discuss findings after paracentesis with GI team and hematology/oncologist (4) Atrial fibrillation Metoprolol by mouth 3 times a day Lopressor IV 5 mg with parameters Targeted oral anticoagulation therapy on hold for now due to planned paracentesis Bacteremia/sepsis Patient has tachycardia however he is afebrile, lactic acid within normal limit. 1st blood culture positive for gram-positive cocci in clusters Blood culture was repeated I will start vancomycin for now VS,Fishbone, I+O VS, Fishbone, I+O Laboratory Tests 01/22/20 05:59 Vital Signs Date Time Temp Pulse Resp B/P (MAP) Pulse Ox O2 Delivery O2 Flow Rate FiO2 01/22/20 08:18 134 106/70 01/22/20 08:10 2.0 01/22/20 08:00 98.7 17 90 Nasal Cannula I&O- Last 24 Hours up to 6 AM 01/22/20 06:00 Intake Total 700 ml Output Total 1075 ml Balance -375 ml EMMANUEL GLASGOW DO Jan 22, 2020 13:37
[2020-01-22] MEDS: SPIRONOLACTONE 50 MG TAB PO SCH (13:44)
[2020-01-22] MEDS: VANCOMYCIN HCL 1,000 MG, VIAL MATE ADAPTER 1 EACH in D5W 250 ML IV SCH ×2 (14:50→22:01)
[2020-01-22] MEDS ORDERED: VANCOMYCIN HCL 1,000 MG, VIAL MATE ADAPTER 1 EACH in D5W 250 ML IV ONE (15:00)
[2020-01-22] MEDS: ATORVASTATIN 20 MG TAB PO SCH (21:55)
[2020-01-23] VITALS (7 sets, daily range): BP systolic 123–141; BP diastolic 75–95
[2020-01-23] MEDS: FUROSEMIDE 40MG/4ML VIAL (J1940) IV SCH ×3 (00:47→23:07)
[2020-01-23] MEDS: SLF 3 ML SYR IV SCH ×3 (06:28→21:26)
[2020-01-23] MEDS: VANCOMYCIN HCL 1,000 MG, VIAL MATE ADAPTER 1 EACH in D5W 250 ML IV SCH (06:28)
[2020-01-23 07:14] LABS: INR 2.25; PROTHROMBIN TIME 25.4 SECONDS (11.8-14.0)
[2020-01-23 07:29] LABS: BLOOD UREA NITROGEN 6 MG/DL (7-18); CARBON DIOXIDE LEVEL 40 MEQ/L (21-32); CHLORIDE LEVEL 96 MEQ/L (98-107); CREATININE FOR GFR 0.59 MG/DL (0.70-1.30); GLOMERULAR FILTRATION RATE > 60.0 (>49); GLUCOSE, FASTING 99 MG/DL (70-100); POTASSIUM SERUM 3.8 MEQ/L (3.5-5.1); SODIUM LEVEL 136 MEQ/L (136-145)
[2020-01-23 07:30] LABS: HEMATOCRIT 44.8 % (42.0-52.0); HEMOGLOBIN 14.7 g/dl (13.5-17.5); MEAN CORPUSCULAR HEMOGLOBIN 33.4 pg (27.0-33.0); MEAN CORPUSCULAR HGB CONC 32.8 g/dl (32.0-36.5); MEAN CORPUSCULAR VOLUME 101.8 fl (80.0-96.0); WHITE BLOOD COUNT 4.6 10^3/uL (4.0-10.0)
[2020-01-23 07:34] LABS: PLATELET COUNT, AUTOMATED 76 10^3/uL (150-450)
[2020-01-23] MEDS ORDERED: PREVNAR 13 VACCINE SYRINGE IM ONE (09:00)
[2020-01-23] MEDS ORDERED: FLUBLOK(EGG FREE)(QUAD)INFLUENZA VACC 0.5ML SYRINGE 18YRS & OLDER IM ONE (09:00)
[2020-01-23] MEDS: SPIRONOLACTONE 50 MG TAB PO SCH (09:56)
[2020-01-23] MEDS: POTASSIUM CHLORIDE 10 MEQ SR TABLET PO SCH (09:58)
[2020-01-23] MEDS: METOPROLOL TART 50 MG TAB PO SCH ×3 (10:00→21:26)
--- NOTE | 2020-01-23 10:15 | ECHO ---
DATE OF PROCEDURE: 01/22/2020 Age: Gender: Male Height: 170 cm Weight: 120.9 kg REFERRING PHYSICIAN: Trenton Kitchen DO INDICATION: Cardiomegaly. MEASUREMENTS: 2D Measurements: Left ventricle diastole 5.0 cm Intraventricular septum 1.2 cm Posterior wall 1.13 cm Left atrium 5.3 cm Left atrial volume index 55 cm Proximal ascending aorta 3.6 cm Aortic root 3.9 cm Aortic annulus 2.3 cm Doppler Measurements: No aortic stenosis No aortic regurgitation Aortic valve velocity 156 cm/s LVOT velocity 88 cm/s Mild mitral regurgitation No mitral stenosis Very mild tricuspid regurgitation Estimated right ventricle systolic pressure 24-34 mmHg Estimated right atrial pressure 5-10 mmHg No pulmonic regurgitation Pulmonary artery systolic pressure 27 mmHg DESCRIPTION: Rhythm was atrial fibrillation with control to rapid ventricular response observed. This was a moderately technically difficult echocardiogram. No subcostal window available (technically difficult). CONCLUSIONS: 1. Normal left ventricle internal dimensions and wall thickness. Normal regional LV wall motion and wall thickening. Normal LV systolic function. LVEF 60% by visual estimate. 2. Moderate aortic valve sclerosis with a 3-cuspid aortic valve. No aortic stenosis or regurgitation. 3. Moderate mitral annular calcification. Mild mitral regurgitation. No mitral stenosis. 4. Severe left atrial dilatation by left atrial volume index. 5. Mild dilatation of the aortic root at the level of the sinus of Valsalva. 6. No pericardial effusion. 7. Otherwise normal appearing echocardiogram Doppler findings. 8. Moderately technically difficult echocardiogram. [facility]
--- NOTE | 2020-01-23 10:55 | IPNPDOC ---
Text Note Date of Service The patient was seen on 01/23/20. NOTE Subjective: Patient continues to have abdominal distention. Patient stated that his shortness of breath improved He denied fever, chills, nausea, or dysuria Objective: GENERAL APPEARANCE: NAD HEENT: no scleral icterus, no JVD, EOMI CARDIOVASCULAR: Irregularly irregular, tachycardic rate 120 LUNGS: Diminished lung sounds ABDOMEN: severely distended, nontender MUSCULOSKELETAL: no cyanosis, no swelling INTEGUMENT: no generalized palor NEUROLOGICAL: cranial nerve function from 2-12 intact intact, follows commands, speech not dysarthric Assessment and plan Patient 64 years old male with past medical history of cirrhosis, diastolic CHF, splenomegaly, neutropenia, thrombocytopenia, hypertension presented to the hospital with shortness of breath. Patient stated for past 34 weeks he has been having increased shortness of breath associated with leg swelling and fatigue. Also patient noticed increased abdominal girth. Patient didn't go to primary care physician on the regular basis because insurance issue. In emergency room patient was found to have lactic acid of 2.5, BNP is 735, creatinine 0.5, EKG showed atrial fibrillation with rapid ventricular rate. Chest x-ray showed cardiomegaly with pulmonary congestive changes. Shortness of breath Secondary to CHF exacerbation and ascites (2) CHF (congestive heart failure) Most likely diastolic CHF Echo Normal left ventricle internal dimensions and wall thickness. Normal regional LV wall motion and wall thickening. Normal LV systolic function. LVEF 60% by visual estimate Is/Os Lasix IV (3) Cirrhosis of liver Patient has history of NADFL CT abdomen/pelvis showed Ascites with bilateral effusions and findings to suggest worsening liver disease. 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 Sple nomegaly. Spironolactone paracentesis diagnostic and therapeutic alpha-fetoprotein wnl Thrombosed portal vein can be manifestation of malignancy We'll discuss findings after paracentesis with GI team and hematology/oncologist (4) Atrial fibrillation Metoprolol by mouth 3 times a day Lopressor IV 5 mg with parameters Targeted oral anticoagulation therapy on hold for now due to planned paracentesi s Bacteremia/sepsis Patient has tachycardia, however he is afebrile, lactic acid within normal [place] it. 1st blood culture positive for gram-positive cocci in clusters, most likely contamination Blood culture was repeated, it is all negative, patient afebrile, no leukocytosis I stopped vancomycin VS,Fishbone, I+O VS, Fishbone, I+O Laboratory Tests 01/23/20 05:39 Vital Signs Date Time Temp Pulse Resp B/P (MAP) Pulse Ox O2 Delivery O2 Flow Rate FiO2 01/23/20 08:00 97.3 105 22 137/79 (98) 91 Nasal Cannula 2.0 I&O- Last 24 Hours up to 6 AM 01/23/20 06:00 Intake Total 1690 ml Output Total 1675 ml Balance 15 ml EMMANUEL GLASGOW Jan 23, 2020 10:55
[2020-01-23 12:51] LABS: SPEC. GRAVITY BODY FLUIDS 1.009 (NOT ESTABLISHED)
[2020-01-23 13:27] LABS: SOURCE, BODY FLUID ASCITES
[2020-01-23 13:28] LABS: SOURCE, BODY FLUID ALBUMIN ASCITES; SOURCE, BODY FLUID GLUCOSE ASCITES; SOURCE, BODY FLUID TOT PROTEIN ASCITES; TOTAL PROTEIN, BODY FLUID 0.9 G/DL (NOT ESTABLISHED)
[2020-01-23 13:30] LABS: APPEARANCE, BODY FLUID CLOUDY (CLEAR); ASCITES FL COLOR AMBER (COLORLESS)
[2020-01-23] MEDS: ATORVASTATIN 20 MG TAB PO SCH (21:26)
[2020-01-24] VITALS: BP 132/85
[2020-01-24 04:00] VITALS: BP 113/80
[2020-01-24] MEDS: SLF 3 ML SYR IV SCH ×3 (04:24→21:17)
[2020-01-24 06:12] LABS: INR 2.19; PROTHROMBIN TIME 24.9 SECONDS (11.8-14.0)
[2020-01-24 07:39] VITALS: BP 116/67
[2020-01-24 08:57] LABS: BASO % 0.5 % (0.0-1.0); EOS # 0.1 10^3/uL (0.0-0.5); HEMATOCRIT 45.9 % (42.0-52.0); HEMOGLOBIN 14.8 g/dl (13.5-17.5); LYMPH # 0.4 10^3/uL (1.5-5.0); LYMPH % 10.3 % (24.0-44.0); MEAN CORPUSCULAR HEMOGLOBIN 32.7 pg (27.0-33.0); MEAN CORPUSCULAR HGB CONC 32.2 g/dl (32.0-36.5); MEAN CORPUSCULAR VOLUME 101.5 fl (80.0-96.0); MONO # 0.4 10^3/uL (0.0-0.8); MONO % 10.9 % (0.0-5.0); NEUTROPHILS # 2.8 10^3/uL (1.5-8.5); RED BLOOD COUNT 4.52 10^6/uL (4.30-6.10); WHITE BLOOD COUNT 3.7 10^3/uL (4.0-10.0)
[2020-01-24 09:00] VITALS: BP 134/76
[2020-01-24 09:13] LABS: PLATELET COUNT, AUTOMATED 70 10^3/uL (150-450)
[2020-01-24 09:24] LABS: ALBUMIN 2.1 GM/DL (3.2-5.2); ALT/SGPT 35 U/L (12-78); BILIRUBIN,TOTAL 3.1 MG/DL (0.2-1.0); BLOOD UREA NITROGEN 7 MG/DL (7-18); CALCIUM LEVEL 8.2 MG/DL (8.8-10.2); CARBON DIOXIDE LEVEL 42 MEQ/L (21-32); CHLORIDE LEVEL 95 MEQ/L (98-107); GLOMERULAR FILTRATION RATE > 60.0 (>49); GLUCOSE, FASTING 106 MG/DL (70-100); POTASSIUM SERUM 4.4 MEQ/L (3.5-5.1); SODIUM LEVEL 140 MEQ/L (136-145); TOTAL PROTEIN 5.6 GM/DL (6.4-8.2)
[2020-01-24] MEDS: SPIRONOLACTONE 50 MG TAB PO SCH (09:38)
[2020-01-24] MEDS: POTASSIUM CHLORIDE 10 MEQ SR TABLET PO SCH (09:38)
[2020-01-24] MEDS: APIXABAN 2.5 MG TAB (ELIQUIS) PO SCH ×2 (09:39→21:12)
[2020-01-24] MEDS: METOPROLOL TART 50 MG TAB PO SCH ×3 (09:40→21:13)
[2020-01-24 11:43] LABS: MAGNESIUM LEVEL 1.5 MG/DL (1.8-2.4)
[2020-01-24] MEDS ORDERED: LASI40TA9 PO (11:49)
[2020-01-24] MEDS ORDERED: ALDA50TA2 PO (11:49)
[2020-01-24] MEDS ORDERED: ELIQ5TAB PO (11:49)
[2020-01-24] MEDS ORDERED: METO1TAB33 PO (11:49)
[2020-01-24] MEDS ORDERED: CIPR-249 PO (11:53)
[2020-01-24] MEDS: FUROSEMIDE 40MG/4ML VIAL (J1940) IV SCH (12:18)
[2020-01-24 16:00] VITALS: BP 117/71
--- NOTE | 2020-01-24 16:01 | DS.PDOC ---
Discharge Summary General Date of Admission Jan 21, 2020 at 16:18 Date of Discharge 01/25/20 Discharge Summary PROCEDURES PERFORMED DURING STAY: [None]. ADMITTING DIAGNOSES: Shortness of breath Cirrhosis of liver Atrial fibrillation Ascites Diastolic CHF DISCHARGE DIAGNOSES: Shortness of breath Cirrhosis of liver Atrial fibrillation Ascites Diastolic CHF COMPLICATIONS/CHIEF COMPLAINT: Atrial Fibrillation, Chf. HISTORY OF PRESENT ILLNESS: Patient 64 years old male with past medical history of cirrhosis, diastolic CHF, splenomegaly, neutropenia, thrombocytopenia, hypertension presented to the hospital with shortness of breath. Patient stated for past 34 weeks he has been having increased shortness of breath associated with leg swelling and fatigue. Also patient noticed increased abdominal girth. Patient didn't go to primary care physician on the regular basis because insurance issue. In emergency room patient was found to have lactic acid of 2.5, BNP is 735, creatinine 0.5, EKG showed atrial fibrillation with rapid ventricular rate. Chest x-ray showed cardiomegaly with pulmonary congestive changes. HOSPITAL COURSE: During hospital stay following issues addressed Shortness of breath Secondary to CHF exacerbation and ascites (2) CHF (congestive heart failure) diastolic CHF Echo report see below Is/Os Lasix IV (3) Cirrhosis of liver Patient has history of NADFL CT abdomen/pelvis showed Ascites with bilateral effusions and findings to suggest worsening liver disease. 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 Splenomegaly. Spironolactone paracentesis diagnostic and therapeutic alpha-fetoprotein wnl Thrombosed portal vein can be manifestation of malignancy Follow-up with GI team and hematology/oncologist Paracentesis was done 2.5 L was evacuated. No GI coverage this week in [facility] (4) Atrial fibrillation Metoprolol by mouth 3 times a day Lopressor IV 5 mg with parameters Continue Targeted oral anticoagulation therapy DISCHARGE MEDICATIONS: Please see below. ALLERGIES: Please see below. PHYSICAL EXAMINATION ON DISCHARGE: VITAL SIGNS: Please see below. GENERAL APPEARANCE: NAD HEENT: no scleral icterus, no JVD, EOMI CARDIOVASCULAR: Irregularly irregular, tachycardic rate 120 LUNGS: Diminished lung sounds ABDOMEN: severely distended, nontender MUSCULOSKELETAL: no cyanosis, no swelling INTEGUMENT: no generalized palor NEUROLOGICAL: cranial nerve function from 2-12 intact intact, follows commands, speech not dysarthric LABORATORY DATA: Please see below. IMAGING: Echo CONCLUSIONS: 1. Normal left ventricle internal dimensions and wall thickness. Normal regional LV wall motion and wall thickening. Normal LV systolic function. LVEF 60% by visual estimate. 2. Moderate aortic valve sclerosis with a 3-cuspid aortic valve. No aortic stenosis or regurgitation. 3. Moderate mitral annular calcification. Mild mitral regurgitation. No mitral stenosis. 4. Severe left atrial dilatation by left atrial volume index. 5. Mild dilatation of the aortic root at the level of the sinus of Valsalva. 6. No pericardial effusion. 7. Otherwise normal appearing echocardiogram Doppler findings. 8. Moderately technically difficult echocardiogram. [facility] NAME: LATOYA BOYLE DATE OF : 1955 BUSINESS NUMBER: [id number] AGE: 64 SEX: M REPORT #: [id number] ROOM: [facility] IN TECHNOLOGIST: MOHSEN DOCTOR: EMMANUEL GLASGOW DO Ordered for Date&Time: 01/21/20 1628 cc: [~ rep ct ivnm] Service Date&Time: 01/21/20 1653 This report is in Signed status. Interpretation performed by [facility]. Thank you for having your radiology procedures performed at [facility] RADIOLOGY REPORT Date&Time printed: [~ rep prt dt last] [~ rep prt tm last] Page 2 of 2 [place] [id number] RADIOLOGY REPORT This report is in Signed status. Interpretation performed by [facility]. Thank you for having your radiology procedures performed at [facility] RADIOLOGY REPORT Date&Time printed: [~ rep prt dt last] [~ rep prt tm last] Page 1 of 1 PROCEDURE INFORMATION: Exam: CT Abdomen And Pelvis With Contrast Exam date and time: 01/21/2020 4:53 PM Age: 64 years old Clinical indication: Other: Ascitis TECHNIQUE: Imaging protocol: Computed tomography of the abdomen and pelvis with intravenous contrast. Radiation optimization: All CT scans at this facility use at least one of these dose optimization techniques: automated exposure control; mA and/or kV adjustment per patient size (includes targeted exams where dose is matched to clinical indication); or iterative reconstruction. Contrast material: ISOVUE 370; Contrast volume: 100 ml; Contrast route: INTRAVENOUS (IV); COMPARISON: SR CT ABD PELVIS W/O FOL BY WIT 02/27/2018 9:09 AM FINDINGS: Lungs: Bilateral basilar atelectasis. Pleural space: There are now bilateral pleural effusions, moderate on the right and small to moderate on the left. Liver: Stable liver cysts. Small liver with a nodular border suggestive of cirrhosis. This is appears more progressive than the previous exam. Gallbladder and bile ducts: Normal. No calcified stones. No ductal dilation. Pancreas: Normal. No ductal dilation. Spleen: The spleen is enlarged at 168 mm. Adrenals: Normal. No mass. Kidneys and ureters: Normal. No hydronephrosis. Stomach and bowel: Unremarkable. No obstruction. No mucosal thickening. Appendix: No evidence of appendicitis. Intraperitoneal space: There is diffuse ascites. Vasculature: There may be cavernous transformation of a thrombosed portal vein. Lymph nodes: Unremarkable. No enlarged lymph nodes. Bladder: Unremarkable as visualized. Reproductive: Unremarkable as visualized. Bones/joints: Arthritis, lithesis and a compression fracture of L1 is stable. Soft tissues: There is new soft tissue edema. Other findings: Numerous varicosities are again seen especially on the left. IMPRESSION: 1. Ascites with bilateral effusions and findings to suggest worsening liver disease. 2. 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 3. Splenomegaly. Electronically signed by: Vi Brock On 01/21/2020 17:26:05 PM DD: VI BROCK MD 01/21/20 1653 DT: ANITA 01/21/20 1726 DS: QUANG 01/21/20 1726 [~ rep ct labl] PROGNOSIS: Fair ACTIVITY: [As tolerated]. DIET: Cardiac DISPOSITION: . Home DISCHARGE INSTRUCTIONS: Patient will need to see commodities broker in 2 to 3 days, patient will need to see back seam stitcher in 1 week DISCHARGE CONDITION: [Stable]. TIME SPENT ON DISCHARGE: Greater than 40 minutes. Vital Signs/I&Os Vital Signs Date Time Temp Pulse Resp B/P (MAP) Pulse Ox O2 Delivery O2 Flow Rate FiO2 01/24/20 14:00 1.0 01/24/20 09:40 102 134/76 01/24/20 09:00 96.8 20 93 Nasal Cannula I&O- Last 24 Hours up to 6 AM 01/24/20 06:00 Intake Total 1200 ml Output Total 5300 ml Balance -4100 ml Laboratory Data Labs 24H Laboratory Tests 2 01/24/20 05:37: Prothrombin Time 24.9H, Prothromb Time International Ratio 2.19 01/24/20 08:31: Immature Granulocyte % (Auto) 0.3, Neutrophils (%) (Auto) 75.0H, Lymphocytes (%) (Auto) 10.3L, Monocytes (%) (Auto) 10.9H, Eosinophils (%) (Auto) 3.0, Basophils (%) (Auto) 0.5, Neutrophils # (Auto) 2.8, Lymphocytes # (Auto) 0.4L, Monocytes # (Auto) 0.4, Eosinophils # (Auto) 0.1, Basophils # (Auto) 0.0, Nucleated Red Blood Cells % (auto) 0.0, Immature Platelet Fraction 2.5, Anion Gap 3L, Glomerular Filtration Rate > 60.0, Calcium Level 8.2L, Magnesium Level 1.5L, Total Bilirubin 3.1H, Aspartate Amino Transf (AST/SGOT) 63H, Alanine Aminotransferase (ALT/SGPT) 35, Alkaline Phosphatase 57, Total Protein 5.6L, Albumin 2.1L, Albumin/Globulin Ratio 0.6 CBC/BMP Laboratory Tests 01/24/20 08:31 Microbiology Microbiology 01/23/20 Acid Fast Stain, Received Pending 01/23/20 Mycobacterial Culture, Received Pending 01/23/20 Fungal Smear, Received Pending 01/23/20 Fungal Culture, Received Pending 01/23/20 Gram Stain - Final, Resulted 01/23/20 Body Fluid Culture, Resulted Pending 01/22/20 Blood Culture - Preliminary, Resulted No Growth after 48 hours. All Specime... 01/22/20 Blood Culture - Preliminary, Resulted No Growth after 48 hours. All Specime... 01/21/20 Blood Culture - Preliminary, Resulted Streptococcus Mitis 01/21/20 Blood Culture - Preliminary, Resulted No Growth after 72 hours. All specime... Discharge Medications Scheduled Apixaban (Eliquis) 5 Mg Tablet, 5 MG PO BID Ciprofloxacin HCl (Cipro) 500 Mg Tablet, 500 MG PO BID Furosemide (Lasix) 40 Mg Tablet, 40 MG PO DAILY Metoprolol Succinate (Metoprolol Succinate) 100 Mg Tab.er.24h, 1 TAB PO DAILY Spironolactone (Aldactone) 50 Mg Tablet, 100 MG PO DAILY Allergies Coded Allergies: No Known Allergies (Unverified , 01/19/18) EMMANUEL GLASGOW DO Jan 24, 2020 16:01
--- NOTE | 2020-01-24 16:51 | IPNPDOC ---
Text Note Date of Service The patient was seen on 01/24/20. NOTE Subjective: Paracentesis was done yesterday 2.5 L was removed. Patient stated that his shortness of breath improved He denied fever, chills, nausea, or dysuria Objective: GENERAL APPEARANCE: NAD HEENT: no scleral icterus, no JVD, EOMI CARDIOVASCULAR: Irregularly irregular, tachycardic rate 120 LUNGS: Diminished lung sounds ABDOMEN: nontender MUSCULOSKELETAL: no cyanosis, no swelling INTEGUMENT: no generalized palor NEUROLOGICAL: cranial nerve function from 2-12 intact intact, follows commands, speech not dysarthric Assessment and plan Patient 64 years old male with past medical history of cirrhosis, diastolic CHF, splenomegaly, neutropenia, thrombocytopenia, hypertension presented to the hospital with shortness of breath. Patient stated for past 34 weeks he has been having increased shortness of breath associated with leg swelling and fatigue. Also patient noticed increased abdominal girth. Patient didn't go to primary care physician on the regular basis because insurance issue. In emergency room patient was found to have lactic acid of 2.5, BNP is 735, creatinine 0.5, EKG showed atrial fibrillation with rapid ventricular rate. Chest x-ray showed cardiomegaly with pulmonary congestive changes. Shortness of breath Secondary to CHF exacerbation and ascites (2) CHF (congestive heart failure) Most likely diastolic CHF Echo Normal left ventricle internal dimensions and wall thickness. Normal regional LV wall motion and wall thickening. Normal LV systolic function. LVEF 60% by visual estimate Is/Os Lasix IV (3) Cirrhosis of liver Patient has history of NADFL CT abdomen/pelvis showed Ascites with bilateral effusions and findings to suggest worsening liver disease. 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 Splenomegaly. Spironolactone paracentesis diagnostic and therapeutic alpha-fetoprotein wnl Thrombosed portal vein can be manifestation of malignancy No GI coverage this week (4) Atrial fibrillation Metoprolol by mouth 3 times a day Lopressor IV 5 mg with parameters Targeted oral anticoagulation therapy on hold for now due to planned paracentesis Bacteremia/sepsis Patient has tachycardia, however he is afebrile, lactic acid within normal limit. 1st blood culture positive for gram-positive cocci in clusters, most likely contamination Blood culture was repeated, it is all negative, patient afebrile, no leukocyto sis I stopped vancomycin VS,Fishbone, I+O VS, Fishbone, I+O Laboratory Tests 01/24/20 08:31 Vital Signs Date Time Temp Pulse Resp B/P (MAP) Pulse Ox O2 Delivery O2 Flow Rate FiO2 01/24/20 16:19 102 134/76 01/24/20 14:00 1.0 01/24/20 09:00 96.8 20 93 Nasal Cannula I&O- Last 24 Hours up to 6 AM 01/24/20 06:00 Intake Total 1200 ml Output Total 5300 ml Balance -4100 ml EMMANUEL GLASGOW DO Jan 24, 2020 16:51
[2020-01-24 20:00] VITALS: BP 115/83
[2020-01-24] MEDS: ATORVASTATIN 20 MG TAB PO SCH (21:16)
[2020-01-25 04:00] VITALS: BP 127/79
[2020-01-25] MEDS: SLF 3 ML SYR IV SCH (05:47)
[2020-01-25 05:59] LABS: INR 2.83; PROTHROMBIN TIME 30.4 SECONDS (12.5-14.3)
[2020-01-25 08:00] VITALS: BP 127/79
[2020-01-25 08:03] LABS: BASO % 0.9 % (0.0-1.0); EOS # 0.1 10^3/uL (0.0-0.5); EOS % 3.3 % (0.0-3.0); HEMATOCRIT 50.7 % (42.0-52.0); HEMOGLOBIN 16.5 g/dl (13.5-17.5); LYMPH # 0.4 10^3/uL (1.5-5.0); LYMPH % 11.3 % (24.0-44.0); MEAN CORPUSCULAR HEMOGLOBIN 32.6 pg (27.0-33.0); MEAN CORPUSCULAR HGB CONC 32.5 g/dl (32.0-36.5); MEAN CORPUSCULAR VOLUME 100.2 fl (80.0-96.0); MONO # 0.5 10^3/uL (0.0-0.8); MONO % 14.8 % (0.0-5.0); NEUTROPHILS # 2.3 10^3/uL (1.5-8.5); NEUTROPHILS % 69.4 % (36.0-66.0); RED BLOOD COUNT 5.06 10^6/uL (4.30-6.10); WHITE BLOOD COUNT 3.4 10^3/uL (4.0-10.0)
[2020-01-25 08:06] LABS: PLATELET COUNT, AUTOMATED 69 10^3/uL (150-450)
[2020-01-25 08:25] LABS: ALBUMIN 2.1 GM/DL (3.2-5.2); ALT/SGPT 35 U/L (12-78); BILIRUBIN,TOTAL 3.7 MG/DL (0.2-1.0); BLOOD UREA NITROGEN 6 MG/DL (7-18); CALCIUM LEVEL 8.3 MG/DL (8.8-10.2); CARBON DIOXIDE LEVEL 39 MEQ/L (21-32); CHLORIDE LEVEL 97 MEQ/L (98-107); CREATININE FOR GFR 0.51 MG/DL (0.70-1.30); GLOMERULAR FILTRATION RATE > 60.0 (>49); GLUCOSE, FASTING 102 MG/DL (70-100); MAGNESIUM LEVEL 1.4 MG/DL (1.8-2.4); POTASSIUM SERUM 3.5 MEQ/L (3.5-5.1); SODIUM LEVEL 140 MEQ/L (136-145); TOTAL PROTEIN 5.7 GM/DL (6.4-8.2)
[2020-01-25] MEDS ORDERED: FUROSEMIDE 40 MG TAB PO SCH (09:00)
[2020-01-25 09:30] VITALS: BP 127/79
[2020-01-25] MEDS: POTASSIUM CHLORIDE 10 MEQ SR TABLET PO SCH (09:30)
[2020-01-25] MEDS: APIXABAN 2.5 MG TAB (ELIQUIS) PO SCH (09:30)
[2020-01-25] MEDS: SPIRONOLACTONE 50 MG TAB PO SCH (09:30)
[2020-01-25] MEDS: METOPROLOL TART 50 MG TAB PO SCH (09:30)
--- NOTE | 2020-01-25 10:02 | ECGEPIP ---
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
--- NOTE | 2020-02-07 11:45 | REP ---
ULTRASOUND GUIDED PARACENTESIS: The procedure was performed under the direct supervision of Dr. Peguero. The images were reviewed with Dr. Peguero. The risks and benefits of the procedure were explained to the patient and informed consent was obtained. The largest pocket of fluid was localized in the left flank using ultrasound guidance. The skin was prepped and draped in a sterile fashion. 1% Lidocaine was used as a local anesthetic. Using ultrasound guidance, an 8 [place] multi-side hole catheter was inserted using trocar technique. 2,500cc of pink colored fluid was withdrawn and sent to the lab for analysis. The patient tolerated the procedure well and there were no immediate complications. After the appropriate amount of monitored convalescence, the patient was discharged from the department. BAIRON
== END 2020-01-25 17:38 | disposition home or self-care (01) | DRG 201 ==
LOC: M ED 12:30 → M ED INP 16:18 → M PCU 18:16
PROVIDERS: ADMIT Internal Medicine; ATTEND Internal Medicine
PROC: 0W9G3ZZ Drainage of Peritoneal Cavity, Percutaneous Approach (ICD-10-PCS; principal; 2020-01-23 11:59)
DX: I48.91 Unspecified atrial fibrillation (principal); I50.33 Acute on chronic diastolic (congestive) heart failure; R18.8 Other ascites; D69.6 Thrombocytopenia, unspecified; K74.69 Other cirrhosis of liver; E55.9 Vitamin D deficiency, unspecified; I11.0 Hypertensive heart disease with heart failure

== ENCOUNTER 2020-04-28 15:05 | Inpatient (IN) | payer OTHER, MEDICAID ==
[~2020-04-28] VITALS: Ht 170.2 cm; Wt 104.2 kg
[~2020-04-28 15:05] MED LIST changes: +ALDA50TA2 PO; +CIPR-249 PO; +ELIQ5TAB PO; -FUROSEMIDE 40MG/4ML VIAL (J1940) IV SCH; +LASI40TA9 PO; +METO1TAB33 PO
[2020-04-28 16:14] LABS: EOS # 0.3 10^3/uL (0.0-0.5); EOS % 6.5 % (0.0-3.0); HEMATOCRIT 43.5 % (42.0-52.0); HEMOGLOBIN 13.7 g/dl (13.5-17.5); LYMPH # 0.5 10^3/uL (1.5-5.0); LYMPH % 12.2 % (24.0-44.0); MEAN CORPUSCULAR HEMOGLOBIN 32.1 pg (27.0-33.0); MEAN CORPUSCULAR HGB CONC 31.5 g/dl (32.0-36.5); MEAN CORPUSCULAR VOLUME 101.9 fl (80.0-96.0); MONO # 0.4 10^3/uL (0.0-0.8); MONO % 10.4 % (0.0-5.0); NEUTROPHILS # 2.7 10^3/uL (1.5-8.5); NEUTROPHILS % 69.4 % (36.0-66.0); RED BLOOD COUNT 4.27 10^6/uL (4.30-6.10); WHITE BLOOD COUNT 3.9 10^3/uL (4.0-10.0)
[2020-04-28 16:15] LABS: PLATELET COUNT, AUTOMATED 79 10^3/uL (150-450)
--- NOTE | 2020-04-28 18:57 | REP ---
INDICATION: pleural effusion COMPARISON: 01/21/2020 TECHNIQUE: Portable AP view of the chest FINDINGS: The mediastinum and cardiac silhouette are stable and within normal limits for portable technique. Small bilateral pleural effusions (right greater than left) noted with passive atelectasis. No pneumothorax. Skeletal structures intact. IMPRESSION: Small bilateral pleural effusions (right greater than left) and passive atelectasis <Electronically signed by Daren Acevedo > 04/28/20 [id number]
[2020-04-28 19:59] LABS: ALBUMIN 2.3 GM/DL (3.2-5.2); ALT/SGPT 24 U/L (12-78); BILIRUBIN,DIRECT 1.6 MG/DL (0.0-0.2); BILIRUBIN,TOTAL 3.4 MG/DL (0.2-1.0); BLOOD UREA NITROGEN 8 MG/DL (7-18); CALCIUM LEVEL 8.5 MG/DL (8.8-10.2); CARBON DIOXIDE LEVEL 34 MEQ/L (21-32); CHLORIDE LEVEL 103 MEQ/L (98-107); CREATININE FOR GFR 0.58 MG/DL (0.70-1.30); GLOMERULAR FILTRATION RATE > 60.0 (>49); GLUCOSE, FASTING 81 MG/DL (70-100); LIPASE 51 U/L (73-393); NT-PRO BNP 293 PG/ML (<125); SODIUM LEVEL 140 MEQ/L (136-145); TOTAL PROTEIN 6.7 GM/DL (6.4-8.2)
[2020-04-28] MEDS ORDERED: ISOVUE-370 76% 100ML VIAL As Ordered ONE (20:50)
--- NOTE | 2020-04-28 21:50 | REPVR ---
PROCEDURE INFORMATION: Exam: CT Abdomen And Pelvis With Contrast Exam date and time: 04/28/2020 9:32 PM Age: 64 years old Clinical indication: Abdominal pain; Additional info: Abdominal distended TECHNIQUE: Imaging protocol: Computed tomography of the abdomen and pelvis with intravenous contrast. Radiation optimization: All CT scans at this facility use at least one of these dose optimization techniques: automated exposure control; mA and/or kV adjustment per patient size (includes targeted exams where dose is matched to clinical indication); or iterative reconstruction. Contrast material: ISOVUE 370; Contrast volume: 100 ml; Contrast route: INTRAVENOUS (IV); COMPARISON: CT ABD PELVIS WITH CONTRAST 01/21/2020 4:44 PM FINDINGS: Pleural space: Bilateral pleural effusions, large in size, right larger than left, with adjacent mild compressive atelectasis. No underlying active pulmonary edema. Stable noncalcified 4 mm right middle lobe nodule and reticulonodular right middle lobe infiltrates. Liver: Liver is cirrhotic with nodular contours. No focal lesion. Gallbladder and bile ducts: Gallbladder is contracted and contains dense material but no calcified stone. Pancreas: Pancreas appears normal. No focal mass or peripancreatic inflammation. Spleen: Spleen appears enlarged and heterogeneous, likely a consequence of arterial phase imaging. Adrenal glands: Adrenal glands are normal in appearance. Kidneys and ureters: Kidneys appear normal, with no stone, solid mass or hydronephrosis. Stomach and bowel: No evidence of small bowel obstruction. No evidence of acute diverticulitis. Appendix: Normal caliber appendix is identified, with no adjacent inflammation. Intraperitoneal space: Large volume ascites. No pneumoperitoneum. Left-sided inguinal hernia is present containing ascites fluid. Vasculature: Atherosclerotic calcifications in the coronary vessels. Portal and splenic vein thrombosis with periportal collaterals present and splenic varices, similar appearance to the prior exam. Extension of thrombus into the superior mesenteric vein. Atherosclerotic change present in the aorta, without aneurysm. Lymph nodes: Prominent periaortic and mesenteric lymphadenopathy. Urinary bladder: Urinary bladder appears normal. Reproductive: No overt enlargement of the prostate gland. Bones/joints: Chronic L5 pars defects with grade 2 L5-S1 spondylolisthesis and multilevel lumbar spine degenerative disc and facet arthropathy. Soft tissues: Changes of gynecomastia are present. Diffuse body wall edema is present. IMPRESSION: 1. Cirrhosis with splenomegaly, large volume ascites and chronic splenic, portal and superior mesenteric thrombus with periportal collaterals and extensive splenic and splenorenal varices. Associated body wall edema and large pleural effusions. 2. Contracted gallbladder without identifiable stones. Intraluminal sludge may be present within the gallbladder lumen. Electronically signed by: Andrea Peña On 04/28/2020 21:50:34 PM
--- NOTE | 2020-04-28 22:00 | REPVR ---
PROCEDURE INFORMATION: Exam: CT Angiography Chest With Contrast Exam date and time: 04/28/2020 9:32 PM Age: 64 years old Clinical indication: Shortness of breath; Additional info: SOB, soliz TECHNIQUE: Imaging protocol: Computed tomographic angiography of the chest with intravenous contrast. 3D rendering (Not supervised by radiologist): MIP and/or 3D reconstructed images were created by the technologist. Radiation optimization: All CT scans at this facility use at least one of these dose optimization techniques: automated exposure control; mA and/or kV adjustment per patient size (includes targeted exams where dose is matched to clinical indication); or iterative reconstruction. Contrast material: ISOVUE 370; Contrast volume: 100 ml; Contrast route: INTRAVENOUS (IV); COMPARISON: CR PORTABLE CHEST X-RAY 04/28/2020 6:44 PM FINDINGS: Pulmonary arteries: Peripheral pulmonary artery evaluation limited by cardiac and respiratory motion artifact. Central pulmonary arteries show no intraluminal defect suggestive of clot. Aorta: Thoracic aorta demonstrates atherosclerotic change. No focal aneurysm or dissection. Great vessels off aortic arch: Atherosclerotic calcifications in the coronary vessels. Lungs: Reticulonodular infiltrates in the right middle lobe and nonspecific right middle lobe 3-4 mm nodule. Pulmonary vascular/interstitial pattern does not suggest active pulmonary edema. No central endobronchial lesion. Pleural space: Large bilateral pleural effusions. Heart: No overt cardiac enlargement or abnormal volume of pericardial fluid. . Mediastinal space: Small hiatal hernia is present. Lymph nodes: Small, nonspecific mediastinal nodes are present. Retrocrural lymphadenopathy. Bones/joints: Bony structures show no acute fracture or destructive process. Soft tissues: Changes of gynecomastia are present. IMPRESSION: 1. No evidence of acute, central pulmonary embolus. Peripheral pulmonary arterial evaluation is limited by cardiac and respiratory motion artifact. 2. Large bilateral dependent pleural effusions and adjacent atelectasis without active pulmonary edema. This may be pleural ascites given the patient's cirrhosis and large volume abdominal ascites. 3. Punctate 3-4 mm right middle lobe nodule similar to January 21, 2020, with stable reticulonodular infiltrates in the right middle lobe. Fleischner society recommendations for followup and management of nodules smaller than 8 mm detected incidentally on screening CT: Less than or equal to 4 mm: Low risk patients- no followup needed. High risk patients- followup in 12 months. If no change, no further imaging needed. Electronically signed by: Andrea Peña On 04/28/2020 22:00:24 PM
[2020-04-28] MEDS ORDERED: MAALOX 30 ML SUSP *UDC PO PRN (22:30)
[2020-04-28] MEDS ORDERED: MOM 30ML SUSPENSION UDC PO PRN (22:30)
--- NOTE | 2020-04-28 22:31 | HPEPDOC ---
[facility] Medical History & Physical Date of Admission Apr 28, 2020 Date of Service: Apr 28, 2020 Primary Care Physician: SHARRI CAMEJO Attending Physician: MARIE JOHN MD History and Physical TIME OF SERVICE: 11 PM CHIEF COMPLAINT: Abdominal pain HISTORY OF PRESENT ILLNESS: This 64-year-old gentleman with a history of liver cirrhosis was last admitted in Jan 2020; after his last admission he followed up with GI and reports being told that his liver cirrhosis was due to drinking too much. His last had paracentesis in February, and over the last few weeks, he noticed that his abdomen was becoming gradually larger and larger. Today he presented with complaints of abdominal pain and swelling that make it difficult for him to breathe and difficult for him to eat; nonetheless, he admits to drinking more fluids. Despite his med reconciliation list showed that he is supposed to be on Lasix and spironolactone, he denied being on diuretics. He also denied having f windy, chills, nausea, vomiting or diarrhea. REVIEW OF SYSTEMS: 12 point review of systems negative except as listed in HPI PAST MEDICAL/ SURGICAL HISTORY: Alcoholic liver cirrhosis with splenomegaly and thrombocytopenia Portal and superior mesenteric thrombus Grade 2 esophageal varices status post banding Chronic neutropenia AAA Atrial fibrillation Chronic HFpEF Chronic hypertension AV sclerosis Dilated aortic root Left atrium dilation SOCIAL HISTORY: He doesn't smoke. He quit drinking in February He doesn't use recreational drugs FAMILY HISTORY: CKD Cancer ALLERGIES: Please see below. HOME MEDICATIONS: Please see below. PHYSICAL EXAMINATION: VITAL SIGNS: Please see below. GEN: well-nourished / well developed/ NAD INTEGUMENT: not flushed/ not jaundice HEENT: lips acyanotic /mucus membranes moist and pink / has mild scleral icterus CVS: RRR/NMRG/ no JVP / radial pulses intact / lower extremity edema up to the mid shins LUNGS: able to speak full sentences without stopping to take a breath / no coughing / lungs are clear to auscultation bilaterally on room air ABDOMEN: Contour (distended) / firm but not tender with palpation MSK/EXTREMITIES: NCAT / range of motion intact in all 4 extremities NEURO: CN 2-12 are grossly intact / speech is not dysarthric PSYCH: alert and oriented to person place and time/ able to understand and follow all commands LABORATORY DATA: See below. IMAGING: Chest x-ray "IMPRESSION: Small bilateral pleural effusions (right greater than left) and passive atelectasis." CTA chest :1. No evidence of acute, central pulmonary embolus. Peripheral pulmonary arterial evaluation is limited by cardiac and respiratory motion artifact. 2. Large bilateral dependent pleural effusions and adjacent atelectasis without active pulmonary edema. This may be pleural ascites given the patient's cirrhosis and large volume abdominal ascites. 3. Punctate 3-4 mm right middle lobe nodule similar to January 21, 2020, with stable reticulonodular infiltrates in the right middle lobe. Fleischner society recommendations for followup and management of nodules smaller than 8 mm detected incidentally on screening CT:Less than or equal to 4 mm: Low risk patients- no followup needed. High risk patients- followup in 12 months. If no change, no further imaging needed." CT abdomen and pelvis "IMPRESSION: 1. Cirrhosis with splenomegaly, large volume ascites and chronic splenic, portal and superior mesenteric thrombus with periportal collaterals and extensive splenic and splenorenal varices. Associated body wall edema and large pleural effusions. 2. Contracted gallbladder without identifiable stones. Intraluminal sludge may be present within the gallbladder lumen." MICROBIOLOGY: Please see below. ASSESSMENT: is 64-year-old with a history of alcoholic liver cirrhosis with splenomegaly, thrombocytopenia, portal and superior mesenteric vein thrombosis, esophageal varices, neutropenia, AAA, atrial fibrillation, HFpEF, and HTN who presented with complaints of gradually worsening ascites in the setting of drinking excessive amounts of fluids; he'll be admitted for management of ascites, and acute HFpEF. PLAN: 1. Ascites. Likely due to drinking excessive amounts of fluids and possibly noncompliance with diuretics Plan: Admit to medical floor/will last the daytime team to consult IR for paracentesis / spironolactone and Lasix / dietitian consult to discuss discuss appropriate diet 2. Acute diastolic HFpEF Plan: Follow-up I's and O's, daily weights/salt and fluid restriction/ Lasix. 3. Bilateral pleural effusions, likely due to liver cirrhosis Plan: Diuretics 4. Portal and superior mesenteric thrombus Plan: We'll ask the daytime team to consider consulting hematology to discuss if the patient should be on anticoagulation 5. Long-standing persistent atrial fibrillation For unclear reasons, he is not on anticoagulation Plan: Metoprolol / last the daytime team to that his PCP to get additional history 6. 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 Chronic hypertension Plan: Metoprolol, Lasix, spironolactone DVT PROPHYLAXIS: SCDs pending paracentesis DISPOSITION: home after more than 2 midnight's stay Vital Signs Vital Signs Date Time Temp Pulse Resp B/P (MAP) Pulse Ox O2 Delivery O2 Flow Rate FiO2 04/28/20 18:02 04/28/20 15:06 97.9 75 18 94 Room Air Laboratory Data Labs 24H Laboratory Tests 2 04/28/20 15:59: Immature Granulocyte % (Auto) 0.5, Neutrophils (%) (Auto) 69.4H, Lymphocytes (%) (Auto) 12.2L, Monocytes (%) (Auto) 10.4H, Eosinophils (%) (Auto) 6.5H, Basophils (%) (Auto) 1.0, Neutrophils # (Auto) 2.7, Lymphocytes # (Auto) 0.5L, Monocytes # (Auto) 0.4, Eosinophils # (Auto) 0.3, Basophils # (Auto) 0.0, Nucleated Red Blood Cells % (auto) 0.0, Immature Platelet Fraction 2.1 04/28/20 18:10: Urine Color JERZY, Urine Appearance CLEAR, Urine pH 6.0, Urine Specific [place] 1.019, Urine Protein NEGATIVE, Urine Glucose (UA) NEGATIVE, Urine Ketones TRACEH, Urine Blood 1+H, Urine Nitrite NEGATIVE, Urine Bilirubin NEGATIVE, Urine Urobilinogen 4.0H, Urine Leukocyte Esterase TRACEH, Urine WBC (Auto) 7H, Urine RBC (Auto) 1, Urine Hyaline Casts (Auto) 0, Urine Bacteria (Auto) NEGATIVE, Urin e Squamous Epithelial Cells 0, Urine Mucus (Auto) SMALL, Urine Sperm (Auto) 04/28/20 19:16: Anion Gap 3L, Glomerular Filtration Rate > 60.0, Calcium Level 8.5L, Total Bilirubin 3.4H, Direct Bilirubin 1.6H, Aspartate Amino Transf (AST/SGOT) 37, Alanine Aminotransferase (ALT/SGPT) 24, Alkaline Phosphatase 55, WL-Wbd-D-Type Natriuretic Peptide 293H, Total Protein 6.7, Albumin 2.3L, Albumin/Globulin Ratio 0.5, Lipase 51L 04/28/20 21:53: CBC/BMP Laboratory Tests 04/28/20 15:59 04/28/20 19:16 Microbiology Microbiology 04/28/20 Urine Culture, Received Pending Home Medications Scheduled Apixaban (Eliquis) 5 Mg Tablet, 5 MG PO BID Furosemide (Lasix) 80 Mg Tablet, 60 MG PO DAILY Metoprolol Succinate (Metoprolol Succinate) 100 Mg Tab.er.24h, 100 MG PO DAILY Spironolactone (Aldactone) 100 Mg Tablet, 1 TAB PO DAILY Allergies Coded Allergies: No Known Allergies (Unverified , 01/19/18) A-FIB/CHADSVASC A-FIB History Current/History of A-Fib/PAF?: No Current PO Anticoag Therapy: No MARIE JOHN MD Apr 28, 2020 22:31
[2020-04-28 22:43] LABS: RSV AMPLIFICATION NEGATIVE (NEGATIVE)
[2020-04-28] MEDS ORDERED: FURO40TA2 PO (22:51)
[2020-04-28] MEDS ORDERED: METO1TAB33 PO (22:51)
[2020-04-28] MEDS ORDERED: SPIR50TA4 PO (22:51)
[2020-04-28 23:48] LABS: INR 1.58; PROTHROMBIN TIME 19.2 SECONDS (12.5-14.3)
[2020-04-28 23:49] LABS: PARTIAL THROMBOPLASTIN TIME 36.3 SECONDS (24.2-38.5)
[2020-04-29] MEDS ORDERED: FUROSEMIDE 100MG/10ML VIAL (J1940) IV ONE
--- NOTE | 2020-04-29 00:39 | ECGEPIP ---
[facility] - ED Test Date: 2020-04-28 Pat Name: LATOYA BOYLE Department: Room: - Gender: Male [employer] Filler: : 1955 Requested By: SHERE Miller Order Number: [id number] Reading MD: Mariano Bobby Measurements Intervals [place] Rate: 72 P: 9 OH: 131 QRS: 23 QRSD: 96 T: 28 QT: 261 QTc: 287 Interpretive Statements SINUS RHYTHM NONSPECIFIC T-WAVE ABNORMALITY RHYTHM/RATE CHANGE COMPARED TO 01/21/20 Electronically Signed on 04-29-2020 0:39:31 EST by Mariano Bobby
[2020-04-29 02:30] VITALS: BP 113/81
[2020-04-29 05:36] LABS: HEMATOCRIT 38.6 % (42.0-52.0); MEAN CORPUSCULAR HEMOGLOBIN 33.5 pg (27.0-33.0); MEAN CORPUSCULAR HGB CONC 33.7 g/dl (32.0-36.5); MEAN CORPUSCULAR VOLUME 99.5 fl (80.0-96.0); PLATELET COUNT, AUTOMATED 71 10^3/uL (150-450); RED BLOOD COUNT 3.88 10^6/uL (4.30-6.10); WHITE BLOOD COUNT 3.4 10^3/uL (4.0-10.0)
[2020-04-29 05:59] LABS: ALBUMIN 2.1 GM/DL (3.2-5.2); ALT/SGPT 28 U/L (12-78); BILIRUBIN,TOTAL 3.7 MG/DL (0.2-1.0); BLOOD UREA NITROGEN 7 MG/DL (7-18); CALCIUM LEVEL 8.4 MG/DL (8.8-10.2); CARBON DIOXIDE LEVEL 33 MEQ/L (21-32); CHLORIDE LEVEL 102 MEQ/L (98-107); CREATININE FOR GFR 0.61 MG/DL (0.70-1.30); GLOMERULAR FILTRATION RATE > 60.0 (>49); GLUCOSE, FASTING 91 MG/DL (70-100); POTASSIUM SERUM 3.5 MEQ/L (3.5-5.1); SODIUM LEVEL 137 MEQ/L (136-145); TOTAL PROTEIN 6.5 GM/DL (6.4-8.2)
[2020-04-29 06:00] VITALS: BP 123/64
[2020-04-29] MEDS: SPIRONOLACTONE 50 MG TAB PO SCH (08:30)
[2020-04-29] MEDS: METOPROLOL SUCC (TopROL XL) 100MG *XL* TAB PO SCH (08:31)
[2020-04-29] MEDS ORDERED: FUROSEMIDE 40 MG TAB PO SCH (09:00)
[2020-04-29] MEDS: FUROSEMIDE 40MG/4ML VIAL (J1940) IV SCH ×2 (11:06→18:40)
[2020-04-29] MEDS ORDERED: SODIUM BICARBONATE 8.4% INJ 50MEQ 50 ML VIAL As Ordered ONE (13:56)
[2020-04-29 14:52] LABS: SPEC. GRAVITY BODY FLUIDS 1.012 (NOT ESTABLISHED)
[2020-04-29 15:06] LABS: APPEARANCE, BODY FLUID HAZY (CLEAR); PERITONEAL FL COLOR YELLOW (COLORLESS); SOURCE, BODY FLUID PERITONEAL
[2020-04-29 15:22] LABS: SOURCE, BODY FLUID ALBUMIN PERITONEAL; SOURCE, BODY FLUID GLUCOSE PERITONEAL; SOURCE, BODY FLUID TOT PROTEIN PERITONEAL; TOTAL PROTEIN, BODY FLUID 1.5 G/DL (NOT ESTABLISHED)
--- NOTE | 2020-04-29 16:52 | REP ---
INDICATION: Ascities The patient has a history of ascites COMPARISON: None. TECHNIQUE: The procedure was performed by ANEL Ray, under the direct supervision of Dr. Mcadams The risks and benefits of the procedure were explained to the patient and an informed consent was obtained both verbally and written. Directly prior to the start of the procedure a formal time-out was completed in the procedure room. The largest pocket of fluid was localized in the right flank using ultrasound guidance. The skin was prepped and draped in a sterile fashion. Eleven ML of buffered lidocaine was used as a local anesthetic. An 8-English multi side-hole catheter was inserted using trocar technique. FINDINGS: 4100 mL of mariela colored ascites was removed, 1400 mL was sent to the lab for further analysis. The patient tolerated the procedure well and there were no immediate complications. After the appropriate amount of monitored convalescence, the patient was discharged from the department. IMPRESSION: Ultrasound-guided paracentesis with removal 4100 mL of mariela colored ascites. <Electronically signed by Mira Calloway > 04/29/20 1608 <Electronically signed by Alexander Mcadams > 04/29/20 1643
--- NOTE | 2020-04-29 20:22 | IPNPDOC ---
Text Note Date of Service The patient was seen on 04/29/20. NOTE Subjective: No any acute events overnight. No fever no chills. Patient continues to complain of abdominal distention Objective: GENERAL APPEARANCE: NAD HEENT: no scleral icterus, no JVD, EOMI CARDIOVASCULAR: S1S2 LUNGS: CTA ABDOMEN: soft & not tender w palpitation MUSCULOSKELETAL: no cyanosis, no swelling INTEGUMENT: no generalized palor NEUROLOGICAL: cranial nerve function from 2-12 intact intact, follows commands, speech not dysarthric ASSESSMENT: Patient is 64-year-old with a history of alcoholic liver cirrhosis with splenomegaly, thrombocytopenia, portal and superior mesenteric vein thrombosis, esophageal varices, neutropenia, AAA, atrial fibrillation, HFpEF, and HTN who presented with complaints of gradually worsening ascites in the setting of dr inking excessive amounts of fluids; he'll be admitted for management of ascites, and acute HFpEF Ascites Most likely Ewing versus fatty liver Patient was noncompliant with diuretics Paracentesis was done today. Spironolactone, continue Lasix Patient will need follow-up with element burner Dyspnea/bilateral pleural effusions Most likely secondary to ascites, pulmonary effusion Continue Lasix, paracentesis Portal and superior mesenteric thrombus start anticoagulation after paracentesis Atrial fibrillation Patient was not on the anticoagulation Xarelto Liver cirrhosis Grade 2 esophageal varices status post banding Most likely due to Ewing Follow-up with GI team Hypertension Blood pressure under control Continue cardioprotective medications VS,Fishbone, I+O VS, Fishbone, I+O Laboratory Tests 04/29/20 05:20 Vital Signs Date Time Temp Pulse Resp B/P (MAP) Pulse Ox O2 Delivery O2 Flow Rate FiO2 04/29/20 14:55 81 18 100 Room Air 04/29/20 13:30 98.1 04/29/20 08:31 123/64 I&O- Last 24 Hours up to 6 AM 04/29/20 06:00 Intake Total 150 ml Output Total 1325 ml Balance -1175 ml EMMANUEL GLASGOW DO Apr 29, 2020 20:22
[2020-04-29] MEDS ORDERED: RIVAROXABAN 20 MG TAB (XARELTO) PO ONE (20:30)
[2020-04-29 22:00] VITALS: BP 102/60
[2020-04-30] MEDS: FUROSEMIDE 40MG/4ML VIAL (J1940) IV SCH ×2 (04:15→11:28)
[2020-04-30 06:00] VITALS: BP 100/60
[2020-04-30] MEDS: SPIRONOLACTONE 50 MG TAB PO SCH (08:16)
[2020-04-30 08:17] VITALS: BP 100/60
[2020-04-30] MEDS: METOPROLOL SUCC (TopROL XL) 100MG *XL* TAB PO SCH (08:17)
[2020-04-30 09:17] LABS: BASO % 0.9 % (0.0-1.0); EOS # 0.1 10^3/uL (0.0-0.5); EOS % 6.3 % (0.0-3.0); HEMATOCRIT 38.5 % (42.0-52.0); HEMOGLOBIN 12.5 g/dl (13.5-17.5); LYMPH # 0.3 10^3/uL (1.5-5.0); LYMPH % 14.5 % (24.0-44.0); MEAN CORPUSCULAR HEMOGLOBIN 32.4 pg (27.0-33.0); MEAN CORPUSCULAR HGB CONC 32.5 g/dl (32.0-36.5); MEAN CORPUSCULAR VOLUME 99.7 fl (80.0-96.0); MONO # 0.3 10^3/uL (0.0-0.8); MONO % 13.1 % (0.0-5.0); NEUTROPHILS # 1.4 10^3/uL (1.5-8.5); NEUTROPHILS % 64.7 % (36.0-66.0); RED BLOOD COUNT 3.86 10^6/uL (4.30-6.10); WHITE BLOOD COUNT 2.2 10^3/uL (4.0-10.0)
[2020-04-30 09:24] LABS: PLATELET COUNT, AUTOMATED 82 10^3/uL (150-450)
[2020-04-30 09:38] LABS: ALT/SGPT 21 U/L (12-78); BILIRUBIN,TOTAL 2.7 MG/DL (0.2-1.0); BLOOD UREA NITROGEN 7 MG/DL (7-18); CALCIUM LEVEL 8.1 MG/DL (8.8-10.2); CARBON DIOXIDE LEVEL 37 MEQ/L (21-32); CHLORIDE LEVEL 96 MEQ/L (98-107); CREATININE FOR GFR 0.67 MG/DL (0.70-1.30); GLOMERULAR FILTRATION RATE > 60.0 (>49); GLUCOSE, FASTING 114 MG/DL (70-100); MAGNESIUM LEVEL 1.5 MG/DL (1.8-2.4); POTASSIUM SERUM 3.2 MEQ/L (3.5-5.1); SODIUM LEVEL 137 MEQ/L (136-145); TOTAL PROTEIN 5.8 GM/DL (6.4-8.2)
[2020-04-30] MEDS ORDERED: XARE20TA PO (11:11)
[2020-04-30] MEDS ORDERED: ALDA100T PO (11:11)
[2020-04-30] MEDS ORDERED: METO1TAB33 PO (11:11)
[2020-04-30] MEDS ORDERED: LASI80TA3 PO (11:11)
[2020-04-30] MEDS ORDERED: ELIQ5TAB PO (12:36)
[2020-04-30] MEDS ORDERED: RIVAROXABAN 20 MG TAB (XARELTO) PO SCH (18:00)
--- NOTE | 2020-04-30 18:24 | DS.PDOC ---
Discharge Summary General Date of Admission Apr 28, 2020 at 22:27 Date of Discharge 04/30/20 Discharge Summary PROCEDURES PERFORMED DURING STAY: [None]. ADMITTING DIAGNOSES: Ascites Dyspnea/bilateral pleural effusions Atrial fibrillation Portal and superior mesenteric thrombus Liver cirrhosis Hypertension DISCHARGE DIAGNOSES: Ascites Dyspnea/bilateral pleural effusions Atrial fibrillation Portal and superior mesenteric thrombus Liver cirrhosis Hypertension COMPLICATIONS/CHIEF COMPLAINT: Bilateral Pleural Effusion. HISTORY OF PRESENT ILLNESS: Patient is 64-year-old with a history of alcoholic liver cirrhosis with splenomegaly, thrombocytopenia, portal and superior mesenteric vein thrombosis, esophageal varices, neutropenia, AAA, atrial fibrillation, HFpEF, and HTN who presented with complaints of gradually worsening ascites in the setting of drinking excessive amounts of fluids; he'll be admitted for management of ascites, and acute HFpEF HOSPITAL COURSE: During hospital stay following issue addressed Ascites Most likely Ewing versus fatty liver Patient was noncompliant with diuretics Paracentesis was done Spironolactone, continue Lasix Patient will need follow-up with wrapper sheeter Dyspnea/bilateral pleural effusions Most likely secondary to ascites, pulmonary effusion Lasix, patient received paracentesis Portal and superior mesenteric thrombus start anticoagulation after paracentesis Atrial fibrillation Patient was not on the anticoagulation Xarelto Liver cirrhosis Grade 2 esophageal varices status post banding Most likely due to Ewing Follow-up with GI team Hypertension Blood pressure under control Continue cardioprotective medications DISCHARGE MEDICATIONS: Please see below. ALLERGIES: Please see below. PHYSICAL EXAMINATION ON DISCHARGE: VITAL SIGNS: Please see below. GENERAL APPEARANCE: NAD HEENT: no scleral icterus, no JVD, EOMI CARDIOVASCULAR: S1S2 LUNGS: CTA ABDOMEN: soft & not tender w palpitation MUSCULOSKELETAL: no cyanosis, no swelling INTEGUMENT: no generalized palor NEUROLOGICAL: cranial nerve function from 2-12 intact intact, follows commands, speech not dysarthric LABORATORY DATA: Please see below. IMAGING: [facility] NAME: LATOYA BOYLE DATE OF : 1955 BUSINESS NUMBER: [id number] AGE: 64 SEX: M REPORT #: [id number] ROOM: ED TECHNOLOGIST: MACKENZIE DOCTOR: SHREE QUINN MD Ordered for Date&Time: 04/28/201930 cc: [~ rep ct ivnm] Service Date&Time: 04/28/202131 This report is in Signed status. Interpretation performed by [facility]. Thank you for having your radiology procedures performed at [facility] RADIOLOGY REPORT Date&Time printed: [~ rep prt dt last] [~ rep prt tm last] Page [address] of [address] [id number] RADIOLOGY REPORT This report is in Signed status. Interpretation performed by [facility]. Thank you for having your radiology procedures performed at [facility] RADIOLOGY REPORT Date&Time printed: [~ rep prt dt last] [~ rep prt tm last] Page 1 of 1 COMPARISON: CT ABD PELVIS WITH CONTRAST 01/21/2020 4:44 PM FINDINGS: Pleural space: Bilateral pleural effusions, large in size, right larger than left, with adjacent mild compressive atelectasis. No underlying active pulmonary edema. Stable noncalcified 4 mm right middle lobe nodule and reticulonodular right middle lobe infiltrates. Liver: Liver is cirrhotic with nodular contours. No focal lesion. Gallbladder and bile ducts: Gallbladder is contracted and contains dense material but no calcified stone. Pancreas: Pancreas appears normal. No focal mass or peripancreatic inflammation. Spleen: Spleen appears enlarged and heterogeneous, likely a consequence of arterial phase imaging. Adrenal glands: Adrenal glands are normal in appearance. Kidneys and ureters: Kidneys appear normal, with no stone, solid mass or hydronephrosis. Stomach and bowel: No evidence of small bowel obstruction. No evidence of acute diverticulitis. Appendix: Normal caliber appendix is identified, with no adjacent inflammation. Intraperitoneal space: Large volume ascites. No pneumoperitoneum. Left-sided inguinal hernia is present containing ascites fluid. Vasculature: Atherosclerotic calcifications in the coronary vessels. Portal and splenic vein thrombosis with periportal collaterals present and splenic varices, similar appearance to the prior exam. Extension of thrombus into the superior mesenteric vein. Atherosclerotic change present in the aorta, without aneurysm. Lymph nodes: Prominent periaortic and mesenteric lymphadenopathy. Urinary bladder: Urinary bladder appears normal. Reproductive: No overt enlargement of the prostate gland. Bones/joints: Chronic L5 pars defects with grade 2 L5-S1 spondylolisthesis and multilevel lumbar spine degenerative disc and facet arthropathy. Soft tissues: Changes of gynecomastia are present. Diffuse body wall edema is present. IMPRESSION: 1. Cirrhosis with splenomegaly, large volume ascites and chronic splenic, portal and superior mesenteric thrombus with periportal collaterals and extensive splenic and splenorenal varices. Associated body wall edema and large pleural effusions. 2. Contracted gallbladder without identifiable stones. Intraluminal sludge may be present within the gallbladder lumen. Electronically signed by: Andrea Peña On 04/28/2020 21:50:34 PM DD: ANRDEA PEÑA MD 04/28/202131 DT: ANITA 04/28/202149 DS: LISA 04/28/202149 [~ rep ct labl] PROGNOSIS: Good ACTIVITY: [As tolerated]. DIET: Cardiac with salt restrictio DISPOSITION: 01 Home, Self-Care. ITEMS TO FOLLOWUP ON ON OUTPATIENT: Follow-up with wrapper sheeter in 1 week and PCP in one week. DISCHARGE CONDITION: [Stable]. TIME SPENT ON DISCHARGE: Greater than 30 minutes. Vital Signs/I&Os Vital Signs Date Time Temp Pulse Resp B/P (MAP) Pulse Ox O2 Delivery O2 Flow Rate FiO2 04/30/20 08:17 76 100/60 04/30/20 06:00 98.3 18 92 Room Air I&O- Last 24 Hours up to 6 AM 04/30/20 06:00 Intake Total 500 ml Output Total 3275 ml Balance -2775 ml Laboratory Data Labs 24H Laboratory Tests 2 04/30/20 08:43: Immature Granulocyte % (Auto) 0.5, Neutrophils (%) (Auto) 64.7, Lymphocytes (%) (Auto) 14.5L, Monocytes (%) (Auto) 13.1H, Eosinophils (%) (Auto) 6.3H, Basophils (%) (Auto) 0.9, Neutrophils # (Auto) 1.4L, Lymphocytes # (Auto) 0.3L, Monocytes # (Auto) 0.3, Eosinophils # (Auto) 0.1, Basophils # (Auto) 0.0, Nucleated Red Blood Cells % (auto) 0.0, Immature Platelet Fraction 1.9, Anion Gap 4L, Glomeru lar Filtration Rate > 60.0, Calcium Level 8.1L, Magnesium Level 1.5L, Total Bilirubin 2.7H, Aspartate Amino Transf (AST/SGOT) 37, Alanine Aminotransferase (ALT/SGPT) 21, Alkaline Phosphatase 48, Total Protein 5.8L, Albumin 2.0L, Albumin/Globulin Ratio 0.5 CBC/BMP Laboratory Tests 04/30/20 08:43 Microbiology Microbiology 04/29/20 Acid Fast Stain, Received Pending 04/29/20 Mycobacterial Culture, Received Pending 04/29/20 Fungal Smear, Received Pending 04/29/20 Fungal Culture, Received Pending 04/29/20 Gram Stain - Final, Resulted 04/29/20 Body Fluid Culture, Resulted Pending 04/29/20 Anaerobic Culture, Resulted Pending 04/28/20 Urine Culture - Final, Complete Enterococcus Faecalis Discharge Medications Scheduled Apixaban (Eliquis) 5 Mg Tablet, 5 MG PO BID Furosemide (Lasix) 80 Mg Tablet, 60 MG PO DAILY Metoprolol Succinate (Metoprolol Succinate) 100 Mg Tab.er.24h, 100 MG PO DAILY Spironolactone (Aldactone) 100 Mg Tablet, 1 TAB PO DAILY Allergies Coded Allergies: No Known Allergies (Unverified , 01/19/18) EMMANUEL GLASGOW DO Apr 30, 2020 18:24
== END 2020-04-30 14:22 | disposition home or self-care (01) | DRG 280 ==
LOC: M ED 15:05 → M ED INP 22:27 → M MSPAV 04-29 02:35
PROVIDERS: ADMIT Internal Medicine; ATTEND Internal Medicine
PROC: 0W9G3ZZ Drainage of Peritoneal Cavity, Percutaneous Approach (ICD-10-PCS; principal; 2020-04-29 13:37)
DX: K70.31 Alcoholic cirrhosis of liver with ascites (principal); I81 Portal vein thrombosis; I50.33 Acute on chronic diastolic (congestive) heart failure; J90 Pleural effusion, not elsewhere classified; D69.6 Thrombocytopenia, unspecified; I48.19 Other persistent atrial fibrillation; I11.0 Hypertensive heart disease with heart failure; I85.10 Secondary esophageal varices without bleeding; I71.4 Abdominal aortic aneurysm, without rupture; I35.8 Other nonrheumatic aortic valve disorders; Z79.01 Long term (current) use of anticoagulants; Z79.899 Other long term (current) drug therapy; Z91.14 Patient's other noncompliance with medication regimen; Z20.828 Contact with and (suspected) exposure to other viral communicable diseases

== ENCOUNTER → 2020-06-01 | Outpatient (CLI) | payer OTHER, MEDICAID ==
[~2020-06-01] MED LIST changes: +ALDA100T PO; +FURO40TA2 PO; +LASI80TA3 PO; +SPIR50TA4 PO; +XARE20TA PO
== END ==
LOC: M LABSMTC 10:29
PROVIDERS: ATTEND Anesthesiology
DX: Z01.812 Encounter for preprocedural laboratory examination (principal); Z20.822 Contact with and (suspected) exposure to COVID-19

== ENCOUNTER 2020-06-06 11:58 | Day surgery (SDC) | payer OTHER, MEDICAID ==
[~2020-06-06] VITALS: Ht 170.2 cm; Wt 84.4 kg
[~2020-06-06 11:58] MED LIST changes: +NS 1,000 ML IV ONE
--- OUTSIDE RECORDS SUMMARY | 2020-06-06 12:02 | CCD ---
Author Author [facility] Organization [facility] Address Unknown Phone Unavailable Care Team Providers Care Radiology Resident Name Role Phone Chloe Kapoor Unavailable PROBLEMS Type Condition ICD9-CM Code EZT48-SG Code Onset Dates Condition S tatus SNOMED Code Notes Problem Portal hypertension K76.6 Active 98579363 Problem Vitamin D deficiency, unspecified E55.9 Active 13839467 Problem IFG (impaired fasting glucose) R73.01 Active 3 24336505 Problem Hypertension, essential I10 Active 87271881 Problem Colon cancer screening Z12.11 Active 449649638 Problem Cirrhosis of liver K74.60 Active 78974441 Problem Morbid obesity E66.01 Active 890678360 Problem Paroxysmal atrial fibrillation I48.0 Active 2 09577289 Problem Thrombocytopenia D69.6 Active 413626612 Problem Venous insufficiency of both lower extremities I87 .2 Active 613174446 Problem Obesity, morbid E66.01 Active 017672728 Problem Chronic neutropenia D70.9 Active 566485967 Problem Esophageal varices determined by endoscopy I85.00 Active 86198096 ALLERGIES No Known Allergies ENCOUNTERS from 1955 to 2020-05-12 Encounter Location Date Provider Diagnosis [address] [address] Apr, [facility] discharge follow-up Z09 ; Cirrh osis of liver K74.60 ; Esophageal varices determined by endoscopy I85.00 ; Splenomegaly R16.1 ; Thrombocytopenia D69.6 ; Portal hypertension K76.6 ; IFG (impaired fasting glucose) R73.01 ; Paroxysmal atrial fibrillation I48.0 and 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 IMMUNIZATIONS Vaccine Route Administration Date Status Influenza (18 yrs & older) Flublok IM Intramuscular Feb 03 8 Administered Meningococcal 0.5mL (Menveo Groups A,C,Y & W-135) IM Intramuscul ar Jan 04, 2018 Administered Meningococcal 0.5mL (Menveo Groups A,C,Y & W-135) IM Intramu scular October 18, 2017 Administered Pneumococcal Adult 0.5mL (Pneumovax 23) IM Intramuscular Jan 04, 2018 Administered Pneumococcal 0.5mL (Prevnar 13) IM Intramuscular October 18, 2017 Administered Influenza (6mo & up) Fluzone IM Intramuscular Mar 11, 2016 Ad ministered SOCIAL HISTORY Tobacco Use: Social History Observation Description Date Details (start date - stop date) Never Smoker Sex Assigned At : Social History Observation Description Sex Assigned At Unknown Education: Question Answer Notes Level of Education: High School Audit Question Answer Notes Total Score: 0 Interpretation: Alcohol Education Drug and Alcohol Question Answer Notes Total Score: 0 Interpretation: No problems reported Alcohol Screening: Question Answer Notes Did you have a drink containing alcohol in the past year? Ye s Points 4 Interpretation Positive How often did you have six or more drinks on one occas ion in the past year? Never (0 points) How many drinks did you have on a typica l day when you were drinking in the past year? 3 or 4 (1 point) How often did you have a drink containing alcohol in t he past year? Two to three times per week (3 points) BMI Care Goal Follow-Up Question Answer Notes Above Normal BMI Follow-Up Lifestyle education regarding t Tobacco Use: Question Answer Notes Are you a: never smoker REASON FOR REFERRAL No Information VITAL SIGNS Weight 209 lbs Apr, Height 66.5 in Apr, BMI 33.22 kg/m2 Apr, Heart Rate 77 /min Apr, Respiratory Rate 20 /min Apr, Temperature 97 degrees Fahrenheit Apr, Oximetry 96 Apr, Blood pressure systolic 120 mm Hg Apr, Blood pressure diastolic 70 mm Hg Apr, MEDICATIONS Medication SIG (Take, Route, Frequency, Duration) Notes Start Da te End Date Status COMPRESSION STOCKINGS 30-40 mmHg as directed R60.9 Daily for 5 day(s) Active Spironolactone 100 MG 1 tablet Orally Once a day for 30 Days Feb, Active Eliquis 5 MG as directed Orally twice a day for 30 Days Feb, Active Metoprolol Succinate ER 100 MG 1 tablet Orally Once a day for 30 Days Feb, Active Lasix 40 MG 1.5 tablet Orally Once a day for 30 Days 2019 Active PROCEDURES No Information RESULTS No Results REASON FOR VISIT [facility], d/c 04/30, bilater pleural effusions , [facility] Discharge Summary in ecw MEDICAL (GENERAL) HISTORY Type Description Date Medical History mild concentric LVH, grade 1 diastolic dysfunction, LVEF 70%, LAE 46 mm, moderate PHTN, moderate aortic sclerosis, mild MR, mildly dilated aortic root/AA and arch by 11/2017 [facility] Medical History 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 Cartwright Medical History vitamin D deficiency Medical History Grade II Esophageal varices c banding - 01/[address] Ramirez Medical History Small hemorrhoids -01/2018 colonoscopy -D r. R repeat 2019 Medical History Cirrohosis with splenomegaly - 04/2020 C T abd/pelvis Medical History paroxysmal Atrial fibrillation Medical History Portal and superior mesentric thrombus Medical History Ascites with paracentesis in 01/2020 and 04/2020 Surgical History colonoscopy at age 46: normal Surgical History colonoscopy/EGD by Dr. Ramirez 01/2018 Hospitalization History A-fib with RVR 01/2020 Hospitalization History Ascites s/p paracentesis of 4100mls dyspnea/pleural effusions/ liver cirrhosis/ niesha/superior mesentric thrombus 04/28- 04/30/2020 Goals Section No Information Health Concerns No Information MEDICAL EQUIPMENT No Information MENTAL STATUS No Information FUNCTIONAL STATUS No Information ASSESSMENTS Encounter Date Diagnosis Assessment Notes Treatment Notes Treatm ent Clinical Notes Apr, Hospital discharge follow-up (ICD-10 - Z09) 04/28/2020 CT abd/pelvis c IV contrast: Cirrohosis with splenomegaly, large volume ascites and chronic splenic, portal and superior mesenteric thrombus with peiportal collaterals and extensive splenic and splenorenal varices. associated body wall edema and large pleural effusions. contracted gallbladder without identifiable stones. 04/28/2020: CTA chest: No acute PE, large ervin pleural effusions. Punctate 3-4 mm right middle lobe 30 Apr, 2020 Cirrhosis of liver (ICD-10 - K74.60) 04/29/2020 paracentesis 4100mls 04/28/2020 CT abd/pelvis c IV contrast: Cirrohosis with splenomegaly, large volume ascites and chronic splenic, portal and superior mesenteric thrombus with peiportal collaterals and extensive splenic and splenorenal varices. associated body wall edema and large pleural effusions. contracted gallbladder without identifiable stones. 04/28/2020: CTA chest: No acute PE, large ervin pleural effusions. Punctate 3-4 mm right middle lobe 04/2020 bili 2.7 MELD score 15 01/2020 AFP <1.3 09/2018 Iron 47, TIBC 336, Ferr 52 09/2018 55, 31, ervin 2.0 12/2017 51, 35, Bili 3.2 10/18/2017 AST 49/ALT 34 Apr, Esophageal varices determined by endoscopy (ICD- 10 - I85.00) pending repeat EGD bec of insurance coverage No overt bleeding 01/04/2018 EGD: Esophageal varices grade II c banding by Dr. Ramirez Apr, Splenomegaly (ICD-10 - R16.1) Vaccine uptodate. Rx'd as asplenia 01/2018 Abdominal US: limited exam 07/2016 Bone marrow consistent c thrombocytopenia c normal marrow megakaryocytes consistent c peripheral sequestration or destruction. no evidence of leukemia, lymphoma or aplastic process. 01/04/2018 EGD: Esophageal varices grade II c banding by Dr. Ramirez 10/18/2017 Bili indirect 0.7, Bili Total 1.6, Ammonia 108, LDH 297 11/2016 MRI: Moderate to marked splenomegaly consistent c portal hypertension Apr, Thrombocytopenia (ICD-10 - D69.6) No abnormal bruising/bleeding 04/2020 82K 09/2018 59K 12/2017 119K 10/18/2017 Platelets 65, Immature platelets 4.3 %, PT: 18.5 07/2016 Bone marrow consistent c thrombocytopenia c normal marrow megakaryocytes consistent c peripheral sequestration or destruction. no evidence of leukemia, lymphoma or aplastic process. Apr, Portal hypertension (ICD-10 - K76.6) continue current regimen favor 2 NAFLD (no ho heavy EtOH) 10/2017 start coreg 3.125 bid 09/2018 55, 31, ervin 2.0 12/2017 51, 35, Bili 3.2 10/18/2017 AST 49/ALT 34 Apr, IFG (impaired fasting glucose) (ICD-10 - R73.01) Continue ADA diet/weight loss 09/2018 5.7 12/2017 HbA1c 5.3, Insulin 28, LUCHO-IR 7.4 Apr, Paroxysmal atrial fibrillation (ICD-10 - I48.0) continue current regimen Meto 100mg Eliquis anticoagulant Apr, Thrombosis of superior mesenteric artery (ICD-10 - K55.069) PLAN OF TREATMENT Medication Medication Name Sig Start Date Stop Date Eliquis 5 MG as directed Orally twice a day for 30 Days 2019 Metoprolol Succinate ER 100 MG 1 tablet Orally Once a day fo r 30 Days Feb, Spironolactone 100 MG 1 tablet Orally Once a day for 30 Days Feb, Lasix 40 MG 1.5 tablet Orally Once a day for 30 Days Feb, Treatment Notes Assessment Notes Clinical Notes Hospital discharge follow-up 04/28/2020 CT abd/pelvis c IV contrast: Cirrohosis with splenomegaly, large volume ascites and chronic splenic, portal and superior mesenteric thrombus with peiportal collaterals and extensive spleni c and splenorenal varices. associated body wall edema and large pleural effusions. contracted gallbladder without identifiable stones.04/28/2020: CTA chest: No acute PE, large ervin pleural effusions. Punctate 3-4 mm right middle lobe Cirrhosis of liver 04/29/2020 paracente sis [id number]/21/2020 CT abd/pelvis c IV contrast: Cirrohosis with splenomegaly, large volume ascites and chronic splenic, portal and superior mesenteric thrombus with peiportal collaterals and extensive splenic and splenorenal varices. associated body wall edema and large pleural effusions. contracted gallbladder without identifiable stones.04/28/2020: CTA chest: No acute PE, large ervin pleural effusions. Punctate 3-4 mm right middle lobe04/2020 37 bili 2.7 MELD score 159 AFP <1. Iron 47, TIBC 336, Ferr 525 55, 31, ervin 2.12/2017 51, 35, Bili 3.03/05/2018 AST 49/ALT 34 Esophageal varices determined by endoscopy pending repeat EGD bec of insurance coverageNo overt bleeding01/04/2018 EGD: Esophageal varices grade II c banding by Dr. Ramirez Splenomegaly Vaccine uptodate. Rx 'd as asplenia01/2018 Abdominal US: limited exam07/2016 Bone marrow consistent c thrombocytopenia c normal marrow megakaryocytes consistent c peripheral sequestration or destruction. no evidence of leukemia, lymphoma or aplastic process.01/04/2018 EGD: Esophageal varices grade II c banding by Dr. Ramirez10/18/2017 Bili indirect 0.7, Bili Total 1.6, Ammonia 108, LDH 2977/2017 MRI: Moderate to marked splenomegaly consistent c portal hypertension Thrombocytopenia No abnormal bruising /yjjhcfve59/2020 82K5 59K8 119K6 Platelets 65, Immature platelets 4.3 %, PT: 18. Bone marrow consistent c thrombocytopenia c normal marrow megakaryocytes consistent c peripheral sequestration or destruction. no evidence of leukemia, lymphoma or aplastic process. Portal hypertension continue current reg imenfavor 2 NAFLD (no ho heavy EtOH)10/2017 start coreg 3.125 bid09/2018 55, 31, ervin 2.12/2017 51, 35, Bili 3.03/05/2018 AST 49/ALT 34 IFG (impaired fasting glucose) Continue ADA diet/weight loss09/2018 5. HbA1c 5.3, Insulin 28, LCUHO-IR 7.4 Paroxysmal atrial fibrillation continue current regimenMeto 100mg Eliquis anticoagulant Next Appt Details 4 Months Reason: Provider Name:Chloe Kapoor 06-02 01:00:00 PM, [address] [place] [address], [phone], Provider Name:Chloe Kapoor 09-03 09:30:00 AM, [address] [place] [address], [phone], Insurance Providers Payer Name Payer Address Payer Phone Insured Name Patient Relati onship to Insured Coverage Start Date Coverage End Date [facility] [address] [facility] [id number] LATOYA BOYLE self
--- OUTSIDE RECORDS SUMMARY | 2020-06-06 12:02 | CCD ---
Author Author [facility] Organization [facility] Address Unknown Phone Unavailable Care Team Providers Care Echo Technician Name Role Phone Chloe Kapoor Unavailable PROBLEMS Type Condition ICD9-CM Code EZC33-AI Code Onset Dates Condition S tatus SNOMED Code Notes Problem Portal hypertension K76.6 Active 54530858 Problem Vitamin D deficiency, unspecified E55.9 Active 22840073 Problem IFG (impaired fasting glucose) R73.01 Active 3 71566037 Problem Hypertension, essential I10 Active 62041053 Problem Colon cancer screening Z12.11 Active 297142644 Problem Cirrhosis of liver K74.60 Active 58716226 Problem Morbid obesity E66.01 Active 890292656 Problem Paroxysmal atrial fibrillation I48.0 Active 2 51192515 Problem Thrombocytopenia D69.6 Active 280831073 Problem Venous insufficiency of both lower extremities I87 .2 Active 928623812 Problem Obesity, morbid E66.01 Active 567562605 Problem Chronic neutropenia D70.9 Active 283124913 Problem Esophageal varices determined by endoscopy I85.00 Active 21188806 ALLERGIES No Known Allergies ENCOUNTERS from 1955 to 2020-06-01 Encounter Location Date Provider Diagnosis [address] [place] [address] May, Chloe Kapoor Paroxysmal atrial fibrillation I48.0 ; C irrhosis of liver K74.60 and Portal hypertension K76.6 IMMUNIZATIONS Vaccine Route Administration Date Status Influenza [...] REASON FOR REFERRAL No Information VITAL SIGNS No information MEDICATIONS Medication SIG (Take, Route, Frequency, Duration) Notes Start Da te End Date Status Eliquis 5 MG as directed Orally twice a day for 30 Days Feb, Active Metoprolol Succinate ER 100 MG 1 tablet Orally Once a day for 30 Days Feb, Active COMPRESSION STOCKINGS 30-40 mmHg as directed R60.9 Daily for 5 day(s) Active Lasix 40 MG 1.5 tablet Orally Once a day for 30 Days 2019 Active Spironolactone 100 MG 1 tablet Orally Once a day for 30 Days Feb, Active PROCEDURES No Information RESULTS No Results REASON FOR VISIT refills - out of meds MEDICAL (GENERAL) HISTORY Type Description Date Medical History mild concentric LVH, grade 1 diastolic dysfunction, LVEF 70%, LAE 46 mm, moderate PHTN, moderate aortic sclerosis, mild MR, mildly dilated aortic root/AA and arch by 11/2017 [facility] Medical History probable cirrhosis 2 NAFLD ( [...] Notes Treatment Notes Treatm ent Clinical Notes May, Paroxysmal atrial fibrillation (ICD-10 - I48.0) May, Cirrhosis of liver (ICD-10 - K74.60) May, Portal hypertension (ICD-10 - K76.6) PLAN OF TREATMENT Medication Medication Name Sig Start Date Stop Date Eliquis 5 MG as directed Orally twice a day for 30 Days 2019 Lasix 40 MG 1.5 tablet Orally Once a day for 30 Days Feb, Metoprolol Succinate ER 100 MG 1 tablet Orally Once a day fo r 30 Days Feb, Spironolactone 100 MG 1 tablet Orally Once a day for 30 Days Feb, Next Appt Details Provider Name:Chloe Kapoor 06-02 11:00:00 AM, [address] [place], [address], Provider Name:Chloe Kapoor 09-03 09:30:00 AM, [address] [place], [address], Insurance Providers Payer Name Payer Address Payer Phone Insured Name Patient Relati onship to Insured Coverage Start Date Coverage End Date [facility] [address] [facility] [phone] LATOYA BOYLE self
[2020-06-06] MEDS ORDERED: propofoL 200 MG/20 ML VIAL As Ordered ONE ×2 (12:03→14:16)
[2020-06-06] MEDS ORDERED: LIDOCAINE 2% 100MG/5ML SDV (FOR ANES.) As Ordered ONE (12:03)
--- OUTSIDE RECORDS SUMMARY | 2020-06-06 12:03 | CCD ---
Author Author [facility] Organization [facility] Address Unknown Phone Unavailable Care Team Providers Care Oliver Filter Operator Name Role Phone Byron Cartwright MD Unavailable Unavailable Byron Cartwright MD Unavailable Unavailable Byron Carwtright MD Unavailable Unavailable Byron Cartwright MD Unavailable Unavailable Byron Cartwright MD Unavailable Unavailable Byron Cartwright MD Unavailable Unavailable Byron Cartwright MD Unavailable Unavailable Byron Cartwright MD Unavailable Unavailable Byron Cartwright MD Unavailable Unavailable Byron Cartwright MD Unavailable Unavailable Byron Cartwright MD Unavailable Unavailable Byron Cartwright MD Unavailable Unavailable Byron Cartwright MD Unavailable Byron Cornejo MD Unavailable Unavailable Byron Cartwright MD Unavailable Unavailable Byron Cartwright MD Unavailable Unavailable Byron Cartwright MD Unavailable Unavailable Byron Cartwright MD Unavailable Unavailable Byron Cartwright MD Unavailable Unavailable Byron Cartwright MD Unavailable Unavailable Byron Cartwright MD Unavailable Unavailable Byron Cartwright MD Unavailable Unavailable Byron Cartwright MD Unavailable Unavailable Byron Cartwright MD Unavailable Unavailable Byron Cartwright MD Unavailable Unavailable Bryon Cartwright MD Unavailable Unavailable Byron Cartwright MD Unavailable Unavailable Byron Cartwright MD Unavailable Unavailable Byron Cartwright MD Unavailable Unavailable Byron Cartwright MD Unavailable Unavailable Byron Cartwright MD Unavailable Unavailable Slezka Vojtech Unavailable Unavailable Slezka Vojtech MD Unavailable Unavailable Slezka Vojtech MD Unavailable Unavailable Slezka Vojtech MD Unavailable Unavailable Slezka Vojtech MD Unavailable Unavailable Slezka Vojtech MD Unavailable Unavailable Slezka Vojtech MD Unavailable Unavailable Slezka Vojtech MD Unavailable Unavailable Slezka Vojtech MD Unavailable Unavailable Slezka Vojtech Unavailable Unavailable Slezka Vojtech MD Unavailable Unavailable Slezka Vojtech MD Unavailable Unavailable Slezka Vojtech MD Unavailable Unavailable Slezka Vojtech MD Unavailable Unavailable Slezka Vojtech MD Unavailable Unavailable Slezka Vojtech MD Unavailable Unavailable Slezka Vojtech MD Unavailable Unavailable Slezka Vojtech MD Unavailable Unavailable Slezka Vojtech MD Unavailable Unavailable Slezka Vojtech Unavailable Unavailable Slezka Vojtech Unavailable Unavailable SlezkaSanchezjtech Unavailable Unavailable Slezka Vojtech Unavailable Unavailable SlezkaSanchezjtech Unavailable Unavailable Slezka Vojtech MD Unavailable Unavailable Slezka Vojtech MD Unavailable Unavailable Slezka Vojtech MD Unavailable Unavailable REINDL, SHREE CALDERA Unavailable Unavailable REINDL, SHREE CALDERA Unavailable Unavailable REINDL, SHREE CALDERA Unavailable Unavailable REINDL, SHREE CALDERA Unavailable Unavailable REINDL, SHREE CALDERA Unavailable Unavailable REINDL, SHREE CALDERA Unavailable Unavailable REINDL, SHREE CALDERA Unavailable Unavailable REINDL, SHREE CALDERA Unavailable Unavailable REINDL, SHREE CALDERA Unavailable Unavailable REINDL, SHREE CALDERA Unavailable Unavailable REINDL, SHREE CALDERA Unavailable Unavailable REINDL, SHREE CALDERA Unavailable Unavailable REINDL, SHREE CALDERA Unavailable Unavailable REINDL, SHREE CALDERA Unavailable Unavailable REINDL, SHREE CALDERA Unavailable Unavailable REINDL, SHREE CALDERA Unavailable Unavailable REINDL, SHREE CALDERA Unavailable Unavailable REINDL, SHREE CALDERA Unavailable Unavailable REINDL, SHREE CALDERA Unavailable Unavailable REINDL, SHREE CALDERA Unavailable Unavailable REINDL, SHREE CALDERA Unavailable Unavailable REINDL, SHREE CALDERA Unavailable Unavailable REINDL, SHREE CALDERA Unavailable Unavailable REINDL, SHREE CALDERA Unavailable Unavailable REINDL, SHREE CALDERA Unavailable Unavailable REINDL, SHREE CALDERA Unavailable Unavailable REINDL, SHREE CALDERA Unavailable Unavailable REINDL, SHREE CALDERA Unavailable Unavailable REINDL, SHREE CALDERA Unavailable Unavailable REINDL, SHREE CALDERA Unavailable Unavailable REINDL, SHREE CALDERA Unavailable Unavailable REINDL, SHREE CALDERA Unavailable Unavailable REINDL, SHREE MD Unavailable Unavailable REINDL, SHREE MD Unavailable Unavailable REINDL, SHREE MD Unavailable Unavailable REINDL, SHREE MD Unavailable Unavailable REINDL, SHREE MD Unavailable Unavailable REINDL, SHREE MD Unavailable Unavailable REINDL, SHREE MD Unavailable Unavailable REINDL, SHREE MD Unavailable Unavailable REINDL, SHREE MD Unavailable Unavailable REINDL, SHREE MD Unavailable Unavailable REINDL, SHREE MD Unavailable Unavailable REINDL, SHREE MD Unavailable Unavailable Re-disclosure Warning The records that you are about to access may contain information from federally-assisted alcohol or drug abuse programs. If such information is present, then the following federally mandated warning applies: This information has been disclosed to you from records protected by federal confidentiality rules (42 CFR part 2). The federal rules prohibit you from making any further disclosure of this information unless further disclosure is expressly permitted by the written consent of the person to whom it pertains or as otherwise permitted by 42 CFR part 2. A general authorization for the release of medical or other information is NOT sufficient for this purpose. The Federal rules restrict any use of the information to criminally investigate or prosecute any alcohol or drug abuse patient.The records that you are about to access may contain highly sensitive health information, the redisclosure of which is protected by Article 27-F of the [facility] Public Health law. If you continue you may have access to information: Regarding HIV / AIDS; Provided by facilities licensed or operated by the [facility] Office of Mental Health; or Provided by the [facility] Office for People With Developmental Disabilities. If such information is present, then the following [facility] mandated warning applies: This information has been disclosed to you from confidential records which are protected by state law. State law prohibits you from making any further disclosure of this information without the specific written consent of the person to whom it pertains, or as otherwise permitted by law. Any unauthorized further disclosure in violation of state law may result in a fine or assisted sentence or both. A general authorization for the release of medical or other information is NOT sufficient authorization for further disc losure. Family History Family Member Name Family Member Gender Family Member Status Date o f Status Description Data Source(s) Unknown Male Problem MEDENT ([facility]) Unknown Unknown Problem MEDENT ([facility], ) Encounters Encounter Providers Location Date Indications Data Source(s ) Unknown [address] [facility] [place] [address] 05/30/2020 12:00:00 AM EST eCW1 ([facility]) Outpatient Attender: Byron JOY.MICH-SJP.MICH 05/09 12:00:00 AM EST - 05/20/2020 11:27:08 AM EST [facility] Outpatient [address] [facility] [place] [address] 05/07/2020 12:00:00 AM EST eCW1 ([facility]) Unknown [address] [facility] [place] [address] 05/07/2020 12:00:00 AM EST eCW1 ([facility]) Unknown [address] [facility] [place] [address] 03/03/2020 12:00:00 AM EDT eCW1 ([facility]) Unknown [address] [facility] [place] [address] 03/03/2020 12:00:00 AM EDT eCW1 ([facility]) Unknown [address] [facility] [place] [address] 02/25/2020 12:00:00 AM EDT eCW1 ([facility]) Unknown [address] [facility] [place] [address] 02/12/2020 12:00:00 AM EDT eCW1 ([facility]) Unknown [address] [facility] [place] [address] 02/12/2020 12:00:00 AM EDT eCW1 ([facility]) Outpatient Attender: SHREE Hernandez/Judi/Rei/Germaine oliver 01/29/2020 01:45:00 PM EDT MEDENT ([facility]) Outpatient [facility] 01/26/2020 12:02:27 AM EDT [facility] Outpatient [facility] 01/25/2020 02:11:01 PM EDT [facility] Medications Medication Brand Name Start Date Product Form Dose Route Admi nistrative Instructions Pharmacy Instructions Status Indications Reaction Description Data Source(s) 100 mg 05/30/2020 12:00:00 AM EST tablet extended release 24 hr 30 TAKE ONE TABLET BY MOUTH ONCE A DAY TAKE ONE TABLET BY MOUTH ONCE A DAY SOLD: 05/30/2020 [facility] 40 mg 05/30/2020 12:00:00 AM EST tablet 45 TAKE ONE AND ONE-HALF TABLETS BY MOUTH EVERY DAY TAKE ONE AND ONE-HALF TABLETS BY MOUTH EVERY DAY SOLD: 05/30/2020 [facility] 100 mg 05/30/2020 12:00:00 AM EST tablet 30 TAKE ONE TABLET BY MOUTH ONCE A DAY TAKE ONE TABLET BY MOUTH ONCE A DAY SOLD: 05/30/2020 [facility] 5 mg 05/30/2020 12:00:00 AM EST tablet 60 TAKE ONE TABLET BY MOUTH TWICE A DAY TAKE ONE TABLET BY MOUTH TWICE A DAY SOLD: 05/30/2020 [facility] 420 gram 05/22/2020 12:00:00 AM EST recon soln 4000 U SE DIRECTED USE DIRECTED SOLD: 05/22/2020 [facility] 24 HR metoprolol succinate 100 MG Extend ed Release Oral Tablet metoprolol succinate (TOPROL-XL) 100 MG 24 hr tablet metoprolol succinate (TOPROL-XL) 100 MG 24 hr tablet 04/30/2020 12:00:00 AM EST 100 mg Oral ac tive Take 100 mg by mouth daily [facility] Spironolactone 100 MG Oral Tablet spironolactone (THOMPSON CTONE) 100 MG tablet spironolactone (ALDACTONE) 100 MG tablet 04/30/2020 12:00:00 AM EST 100 mg Oral active Take 100 mg by mouth daily [facility] apixaban 5 MG Oral Tablet [Eliquis] ELIQUIS 5 MG TABS tablet ELIQUIS 5 MG TABS tablet 04/30/2020 12:00:00 AM EST 5 mg Oral active Take 5 mg by mouth 2 (two) times a day [facility] Furosemide 40 MG Oral Tablet furosemide (LASIX) 40 MG tablet furosemide (LASIX) 40 MG tablet 04/30/2020 12:00:00 AM EST 60 mg Oral activ e Take 60 mg by mouth daily [facility] 100 mg 04/30/2020 12:00:00 AM EST tablet extended release 24 hr 30 TAKE ONE TABLET BY MOUTH EVERY DAY TAKE ONE TABLET BY MOUTH EVERY DAY SOLD: 04/30/2020 [facility] 40 mg 04/30/2020 12:00:00 AM EST tablet 45 TAKE 1 & 1/2 TABLETS BY MOUTH ONCE DAILY TAKE 1 & 1/2 TABLETS BY MOUTH ONCE DAILY SOLD: 04/30/2020 [facility] 100 mg 04/30/2020 12:00:00 AM EST tablet 30 TAKE ONE TABLET BY MOUTH EVERY DAY TAKE ONE TABLET BY MOUTH EVERY DAY SOLD: 04/30/2020 [facility] 5 mg 04/30/2020 12:00:00 AM EST tablet 60 TAKE ONE TABLET BY MOUTH TWICE A DAY TAKE ONE TABLET BY MOUTH TWICE A DAY SOLD: 04/30/2020 [facility] 50 mg 03/04/2020 12:00:00 AM EDT tablet 60 TAKE TWO TABLETS BY MOUTH EVERY DAY TAKE TWO TABLETS BY MOUTH EVERY DAY SOLD: 03/04/2020 [facility] 40 mg 03/04/2020 12:00:00 AM EDT tablet 30 TAKE ONE TABLET BY MOUTH EVERY DAY TAKE ONE TABLET BY MOUTH EVERY DAY SOLD: 03/04/2020 [facility] 100 mg 03/04/2020 12:00:00 AM EDT tablet extended release 24 hr 30 TAKE ONE TABLET BY MOUTH EVERY DAY TAKE ONE TABLET BY MOUTH EVERY DAY SOLD: 03/04/2020 [facility] apixaban 5 MG Oral Tablet [Eliquis] Eliquis 5 MG Eliquis 5 M G 03/03/2020 12:00:00 AM EDT active Eliquis 5 MG eCW1 ([facility]) Furosemide 40 MG Oral Tablet [Lasix] Lasix 40 MG Lasix 40 MG 03/03/2020 12:00:00 AM EDT 1.5 {tablet} active Lasix 40 M G eCW1 ([facility]) 24 HR metoprolol succinate 100 MG Extend ed Release Oral Tablet Metoprolol Succinate ER 100 MG Metoprolol Succinate ER 100 MG 03/03/2020 12:00:00 AM EDT 1.0 {tablet} active Metoprolol Succinat e ER 100 MG eCW1 ([facility]) Furosemide 40 MG Oral Tablet [Lasix] Lasix 40 MG Lasix 40 MG 03/03/2020 12:00:00 AM EDT 1.0 {tablet} active Lasix 40 M G eCW1 ([facility]) 24 HR metoprolol succinate 100 MG Extend ed Release Oral Tablet Metoprolol Succinate ER 100 MG Metoprolol Succinate ER 100 MG 03/03/2020 12:00:00 AM EDT 1.0 {tablet} active Metoprolol Succinat e ER 100 MG eCW1 ([facility]) Spironolactone 100 MG Oral Tablet Spironolactone 100 MG 02/07 12:00:00 AM EDT 1.0 {tablet} active Spironolact one 100 MG eCW1 ([facility]) Spironolactone 100 MG Oral Tablet Spironolactone 100 MG 02/07 12:00:00 AM EDT 1.0 {tablet} active Spironolact one 100 MG eCW1 ([facility]) Furosemide 40 MG Oral Tablet [Lasix] Lasix 40 MG Lasix 40 MG 03/03/2020 12:00:00 AM EDT 1.5 {tablet} active Lasix 40 M G eCW1 ([facility]) Furosemide 40 MG Oral Tablet [Lasix] Lasix 40 MG Lasix 40 MG 03/03/2020 12:00:00 AM EDT 1.0 {tablet} active Lasix 40 M G eCW1 ([facility]) apixaban 5 MG Oral Tablet [Eliquis] Eliquis 5 MG Eliquis 5 M G 03/03/2020 12:00:00 AM EDT active Eliquis 5 MG eCW1 ([facility]) apixaban 5 MG Oral Tablet [Eliquis] Eliquis 5 MG Eliquis 5 M G 03/03/2020 12:00:00 AM EDT active Eliquis 5 MG eCW1 ([facility]) apixaban 5 MG Oral Tablet [Eliquis] Eliquis 5 MG Eliquis 5 M G 03/03/2020 12:00:00 AM EDT active Eliquis 5 MG eCW1 ([facility]) 24 HR metoprolol succinate 100 MG Extend ed Release Oral Tablet Metoprolol Succinate ER 100 MG Metoprolol Succinate ER 100 MG 03/03/2020 12:00:00 AM EDT 1.0 {tablet} active Metoprolol Succinat e ER 100 MG eCW1 ([facility]) Furosemide 40 MG Oral Tablet [Lasix] Lasix 40 MG Lasix 40 MG 03/03/2020 12:00:00 AM EDT 1.5 {tablet} active Lasix 40 M G eCW1 ([facility]) Spironolactone 50 MG Oral Tablet Spironolactone 50 MG 2019 12:00:00 AM EDT 2.0 {tablets} active Spironolac tone 50 MG eCW1 ([facility]) Spironolactone 50 MG Oral Tablet Spironolactone 50 MG 2019 12:00:00 AM EDT 2.0 {tablets} active Spironolac tone 50 MG eCW1 ([facility]) Spironolactone 100 MG Oral Tablet Spironolactone 100 MG 02/07 12:00:00 AM EDT 1.0 {tablet} active Spironolact one 100 MG eCW1 ([facility]) apixaban 5 MG Oral Tablet [Eliquis] Eliquis 5 MG Eliquis 5 M G 03/03/2020 12:00:00 AM EDT active Eliquis 5 MG eCW1 ([facility]) 24 HR metoprolol succinate 100 MG Extend ed Release Oral Tablet Metoprolol Succinate ER 100 MG Metoprolol Succinate ER 100 MG 03/03/2020 12:00:00 AM EDT 1.0 {tablet} active Metoprolol Succinat e ER 100 MG eCW1 ([facility]) 24 HR metoprolol succinate 100 MG Extend ed Release Oral Tablet Metoprolol Succinate ER 100 MG Metoprolol Succinate ER 100 MG 03/03/2020 12:00:00 AM EDT 1.0 {tablet} active Metoprolol Succinat e ER 100 MG eCW1 ([facility]) Magnesium Hydroxide 80 MG/ML Oral Suspension Milk Of Magnesi a 01/29/2020 12:00:00 AM EDT ORAL active M EDENT ([facility], ) Furosemide 40 MG Oral Tablet [Lasix] Lasix 01/29/2020 12:00:00 AM EDT ORAL active MEDENT ([facility], ) POLYETHYLENE GLYCOL 3350 105 MG/ML / Pot assium Chloride 0.17905 MEQ/ML / Sodium Bicarbonate 0.017 MEQ/ML / Sodium Chloride 0.0479 MEQ/ML Oral Solution [TriLyte] Trilyte 01/29/2020 12:00:00 AM EDT active MEDENT ([facility], ) 100 mg 01/25/2020 12:00:00 AM EDT tablet extended release 24 hr 30 TAKE ONE TABLET BY MOUTH EVERY DAY TAKE ONE TABLET BY MOUTH EVERY DAY SOLD: 01/26/2020 [facility] 5 mg 01/25/2020 12:00:00 AM EDT tablet 60 TAKE ONE TABLET BY MOUTH TWICE A DAY TAKE ONE TABLET BY MOUTH TWICE A DAY SOLD: 01/26/2020 [facility] 50 mg 01/25/2020 12:00:00 AM EDT tablet 30 TAKE TWO TABLETS BY MOUTH EVERY DAY TAKE TWO TABLETS BY MOUTH EVERY DAY SOLD: 01/26/2020 [facility] 40 mg 01/25/2020 12:00:00 AM EDT tablet 30 TAKE ONE TABLET BY MOUTH EVERY DAY TAKE ONE TABLET BY MOUTH EVERY DAY SOLD: 01/26/2020 [facility] 500 mg 01/24/2020 12:00:00 AM EDT tablet 14 TAKE ONE TABLET BY MOUTH TWICE A DAY TAKE ONE TABLET BY MOUTH TWICE A DAY SOLD: 01/26/2020 [facility] Insurance Providers Payer name Policy type / Coverage type Policy ID Covered alliance party ID Covered alliance party's relationship to kaiser Policy [facility] Plan Information [facility] [id number] SP [id number] [facility] [id number] SP [id number] [place] 305/805 [id number] SP [id number] [facility] MEDICAID [id number] [facility] MEDICAID [id number] Dejah [id number] [facility](MCA[facility]) O [id number] S [id number] [facility] [id number] SP [id number] SELF PAY ONLY [id number] SP [id number] [facility] Part B [id number] Self [id number] BCBS [employer] U/[place] Commercial [id number] Self [id number] [facility] [id number] Self [id number] BCBS [employer] U/[place] Commercial [id number] Self [id number] [facility] Part B [id number] Self [id number] BCBS [employer]/[place] Commercial [id number] Self [id number] [place] PPO 302/307 [id number] SP [id number] ANSI-Commercial [id number] ANSI-Medicaid [id number] ANSI-Commercial [id number] ANSI-Medicaid [id number] [employer] BC-BS PPO 306 [id number] SP [id number] [employer] BCBS Health Maintenance Organization (HMO) [id number] Self [id number] [place] 306/806 [id number] SP [id number] [employer] BC-BS PPO 306 [id number] SP [id number] ANSI-Medicaid [id number] ANSI-Commercial [id number] [employer] BCBS Health Maintenance Organization (HMO) [id number] Self [id number] [employer] BCBS B [id number] O [id number] ANSI-Commercial [id number] ANSI-Medicaid [id number] ANSI-Medicaid [id number] ANSI-Commercial [id number] ANSI-Commercial [id number] ANSI-Medicaid [id number] ANSI-Commercial [id number] ANSI-Medicaid [id number] [place] P[place] 302/307 [id number] SP [id number] [employer] BC-BS PPO 306 [id number] SP [id number] BCBS [place] PPO 302/307 [id number] SP [id number] ANSI-Commercial [id number] ANSI-Medicaid [id number] [facility] Health Maintenance Organization (HMO) [id number] Self [id number] [facility] MCDO [id number] SP [id number] [facility] Health Maintenance Organization (HMO) [id number] Self [id number] [facility] MCDO [id number] SP [id number] [facility] [id number] Self [id number] [facility] [id number] SP [id number] [facility] [id number] SP [id number] [facility] [id number] Self [id number] [facility] [id number] SP [id number] Problems, Conditions, and Diagnoses Code Display Name Description Problem Type Effective Dates Data Source(s) Z01.810 Preop cardiovascular exam Preop cardiovascular exam [id number] 05/19/2020 12:00:00 AM EST [facility] I48.0 Paroxysmal atrial fibrillation Paroxysmal atrial fibri llation [id number] 05/19/2020 12:00:00 AM EST [facility] I48.0 [id number] Paroxysmal atrial fibrillation Problem 05/07/2020 12:00:00 AM EST eCW1 ([facility]) I71.2 Thoracic aortic aneurysm, without ruptur e Thoracic aortic aneurysm, without ruptur Diagnosis 05/20/2020 10:19:29 AM EST [facility] Z01.810 Encounter for preprocedural cardiovascul ar examination Encounter for preprocedural cardiovascul Diagnosis 05/20/2020 10:19:29 AM EST [facility] I48.19 Other persistent atrial fibrillation Oth er persistent atrial fibrillation Diagnosis 05/20/2020 10:19:29 AM EST [facility] Surgeries/Procedures Procedure Description Date Indications Data Source(s) ECG ROUTINE ECG W/LEAST 12 LDS W/I&R POCT AMB EKG Routine 05/20/2020 11:00 AM EST Persistent atrial fibrillation Preop cardiovascular exam 05/20/2020 04:00:00 PM EST Preop c ardiovascular examPersistent atrial fibrillation [facility] Preop cardiovascular exam Persistent atrial fibrillation Results ID Date Data Source [id number] 06/01/2020 10:30:00 AM EST [facility] Name Value Range Interpretation Code Description Data Mary Carmen rce(s) Supporting Document(s) SARS coronavirus 2 RNA Not Detected [facility] This lab was ordered by [facility] and reported by [facility]. ID Date Data Source [id number] 04/28/2020 09:53:00 PM EST [facility] Name Value Range Interpretation Code Description Data Mary Carmen rce(s) Supporting Document(s) SARS coronavirus 2 RNA [Presence] in Res piratory specimen by PANCHO with probe detection [facility] This lab was ordered by [facility] a nd reported by [facility]. Procedure Social History Code Duration Value Status Description Data Source(s ) Alcohol intake 05/20/2020 12:00:00 AM EST Not Currently completed [facility] Smoking 05/20/2020 12:00:00 AM EST Never smoker completed Never [facility] Smoking 05/07/2020 12:00:00 AM EST Never Smoker completed Never [facility] eCW1 ([facility]) Smoking 05/07/2020 12:00:00 AM EST Never Smoker completed Never [facility] ([facility]) Smoking 05/07/2020 12:00:00 AM EST Never Smoker completed Never [facility]CW[facility] ([facility]) Vital Signs ID Date Data Source UNK Name Value Range Interpretation Code Description Data Source(s) Oxygen saturation in Arterial blood by Pulse oximetry 98 % 98 % [facility] Body mass index (BMI) [Ratio] 31.29 kg/m2 31.29 kg/m2 [facility] Body weight 90.629 kg 90.629 kg [facility] Body height 170.2 cm 170.2 cm [facility] Heart rate 55 /min 55 /min [facility] Diastolic blood pressure 62 mm[Hg] 62 mm[Hg] [facility] Systolic blood pressure 94 mm[Hg] 94 mm[Hg] [facility] Diastolic blood pressure 70 mm[Hg] 70 mm[Hg] eCW1 ([facility]) Systolic blood pressure 120 mm[Hg] 120 mm[Hg] e CW1 [facility] [facility] Body temperature 97 [degF] 97 [degF] eCW1 ([facility]) Respiratory rate 20 /min 20 /min eCW1 ([facility]) Heart rate 77 /min 77 /min eCW1 ([facility]) Body mass index (BMI) [Ratio] 33.22 kg/m2 33.22 kg/m2 eCW1 ([facility]) Body height 66.5 [in_i] 66.5 [in_i] eCW1 ([facility]) Body weight 209 [lb_av] 209 [lb_av] eCW1 ([facility]) Body weight 109.771 kg 109.771 kg [facility] ([facility], ) Body mass index (BMI) [Ratio] 37.9 kg/m2 37.9 k g/m2 MEDENT ([facility], ) Body weight 242.00 [lb_av] 242.00 [lb_av] MEDEN T ([facility], ) Body height 67 [in_i] 67 [in_i] [facility] ([facility], ) 5'7" Diastolic blood pressure 74 mm[Hg] 74 mm[Hg] MEDENT ([facility], ) Systolic blood pressure 121 mm[Hg] 121 mm[Hg] M EDENT ([facility], ) Patient Treatment Plan of Care Planned Activity Planned Date Details Description Data Source (s) Spironolactone 100 MG Oral Tablet 04/30/2020 12:00:00 AM EST [facility] 24 HR metoprolol succinate 100 MG Extended Release Ora l Tablet 04/30/2020 12:00:00 AM EST [facility] Furosemide 40 MG Oral Tablet 04/30/2020 12:00:00 AM EST [facility] apixaban 5 MG Oral Tablet [Eliquis] 04/30/2020 12:00:00 AM [facility] Spironolactone 100 MG Oral Tablet 03/03/2020 12:00:00 AM EDT eCW1 ([facility]) Furosemide 40 MG Oral Tablet [Lasix] 03/03/2020 12:00:00 AM EDT eCW1 ([facility]) 24 HR metoprolol succinate 100 MG Extended Release Ora l Tablet 03/03/2020 12:00:00 AM EDT eCW1 ([facility]) apixaban 5 MG Oral Tablet [Eliquis] 03/03/2020 12:00:00 AM EDT eCW1 ([facility]) Furosemide 40 MG Oral Tablet [Lasix] 03/03/2020 12:00:00 AM EDT eCW1 ([facility]) 24 HR metoprolol succinate 100 MG Extended Release Ora l Tablet 03/03/2020 12:00:00 AM EDT eCW1 ([facility]) apixaban 5 MG Oral Tablet [Eliquis] 03/03/2020 12:00:00 AM EDT eCW1 ([facility]) Spironolactone 100 MG Oral Tablet 03/03/2020 12:00:00 AM EDT eCW1 ([facility]) Furosemide 40 MG Oral Tablet [Lasix] 03/03/2020 12:00:00 AM EDT eCW1 ([facility]) 24 HR metoprolol succinate 100 MG Extended Release Ora l Tablet 03/03/2020 12:00:00 AM EDT eCW1 ([facility]) apixaban 5 MG Oral Tablet [Eliquis] 03/03/2020 12:00:00 AM EDT eCW1 ([facility]) Spironolactone 100 MG Oral Tablet 03/03/2020 12:00:00 AM EDT eCW1 ([facility]) 24 HR metoprolol succinate 100 MG Extended Release Ora l Tablet 03/03/2020 12:00:00 AM EDT eCW1 ([facility]) Furosemide 40 MG Oral Tablet [Lasix] 03/03/2020 12:00:00 AM EDT eCW1 ([facility]) apixaban 5 MG Oral Tablet [Eliquis] 03/03/2020 12:00:00 AM EDT eCW1 ([facility]) Spironolactone 50 MG Oral Tablet 03/03/2020 12:00:00 AM EDT eCW1 ([facility]) 24 HR metoprolol succinate 100 MG Extended Release Ora l Tablet 03/03/2020 12:00:00 AM EDT eCW1 ([facility]) Furosemide 40 MG Oral Tablet [Lasix] 03/03/2020 12:00:00 AM EDT eCW1 ([facility]) apixaban 5 MG Oral Tablet [Eliquis] 03/03/2020 12:00:00 AM EDT eCW1 ([facility]) Spironolactone 50 MG Oral Tablet 03/03/2020 12:00:00 AM EDT eCW1 ([facility])
--- OUTSIDE RECORDS SUMMARY | 2020-06-06 12:03 | CCD ---
Author Author [facility] Organization [facility] Address Unknown Phone Unavailable Care Team Providers Care Slip Cover Maker Name Role Phone Chloe Kapoor Unavailable PROBLEMS Type Condition ICD9-CM Code [id number] Code Onset Dates Condition S tatus SNOMED Code Notes Problem Portal hypertension K76.6 Active 01551810 Problem Vitamin D deficiency, unspecified E55.9 Active 06555543 Problem IFG (impaired fasting glucose) R73.01 Active 3 54525679 Problem Hypertension, essential I10 Active 13574315 Problem Colon cancer screening Z12.11 Active 577143445 Problem Cirrhosis of liver K74.60 Active 17109343 Problem Morbid obesity E66.01 Active 142318509 Problem Paroxysmal atrial fibrillation I48.0 Active 2 74385816 Problem Thrombocytopenia D69.6 Active 111824261 Problem Venous insufficiency of both lower extremities I87 .2 Active 802395023 Problem Obesity, morbid E66.01 Active 684813093 Problem Chronic neutropenia D70.9 Active 281960093 Problem Esophageal varices determined by endoscopy I85.00 Active 41862264 ALLERGIES No Known Allergies ENCOUNTERS from 1955 to 2020-05-07 Encounter Location Date Provider Diagnosis [address] [address] Apr, Chloe Kapoor IMMUNIZATIONS Vaccine Route Administration Date Status Influenza [...] Information RESULTS No Results REASON FOR VISIT appointments MEDICAL (GENERAL) HISTORY Type Description Date Medical [...] No Information FUNCTIONAL STATUS No Information ASSESSMENTS No Information PLAN OF TREATMENT Medication Medication Name Sig [...] 30 Days Feb, Next Appt Details Provider Name:Chloerebecca Kapoor 06-02 01:00:00 PM, [address] [place] [address], [id number], Provider Name:Chloe Antwon 09-03 09:30:00 AM, [address] [place], [address], Insurance Providers Payer Name Payer Address Payer Phone Insured Name Patient Relati onship to Insured Coverage Start Date Coverage End Date [facility] [employer] [facility] [address] [facility] [phone] LATOYA BOYLE self
--- NOTE | 2020-06-06 14:22 | ROOR ---
Patient Name: Matt Ruiz Procedure Date: 06/06/2020 2:07 PM Date of : 1955 Age: 64 Room: [facility] Gender: Male Note Status: Finalized Procedure: Upper GI endoscopy Indications: Cirrhosis with suspected esophageal varices, Follow-up of esophageal varices Providers: David RAMIREZ MD Referring MD: ZAHRAA BLUNT [facility] ZAHRAA Cabrera Requesting Provider: Medicines: Monitored Anesthesia Care Complications: No immediate complications. Procedure: Pre-Anesthesia Assessment: - The heart rate, respiratory rate, oxygen saturations, blood pressure, adequacy of pulmonary ventilation, and response to care were monitored throughout the procedure. The Endoscope was introduced through the mouth, and advanced to the second part of duodenum. The upper GI endoscopy was accomplished without difficulty. The patient tolerated the procedure well. Findings: Grade I, small (< 5 mm) varices were found in the lower third of the esophagus. (Varices are small today, primary prevention/eradication not indicated today) Diffuse mild inflammation characterized by erythema was found in the gastric antrum. Biopsies were taken with a cold forceps for histology. Mild portal hypertensive gastropathy was found in the cardia and in the gastric fundus. The examined duodenum was normal. Impression: - Grade I and small (< 5 mm) esophageal varices. (Varices are small today, primary prevention/eradication not indicated today) - Mild antral gastritis. Biopsied. - Mild portal hypertensive gastropathy. - Normal examined duodenum. Recommendation: - Return to my office as previously scheduled. - Start/continue a Non-selective Beta Bryan such as Propranolol or Nadolol, titrate to heart rate. Procedure Code(s): --- Professional --- 18324, Esophagogastroduodenoscopy, flexible, transoral; with biopsy, single or multiple Diagnosis Code(s): --- Professional --- K74.60, Unspecified cirrhosis of liver K31.89, Other diseases of stomach and duodenum K76.6, Portal hypertension K29.70, Gastritis, unspecified, without bleeding I85.10, Secondary esophageal varices without bleeding CPT copyright 2019 [employer]. All rights reserved. The codes documented in this report are preliminary and upon ivf embryologist review may be revised to meet current compliance requirements. David Ramirez MD David RAMIREZ MD 06/06/2020 2:22:05 PM Electronically signed by David RAMIREZ MD Number of Addenda: 0 Note Initiated On: 06/06/2020 2:07 PM Estimated Blood Loss: Estimated blood loss: none.
[2020-06-06] MEDS ORDERED: PHENYLephrine 500MCG 5ML (100MCG/ML) SYRINGE As Ordered ONE (14:39)
--- NOTE | 2020-06-06 14:49 | ROOR ---
Patient Name: Matt Ruiz Procedure Date: 06/06/2020 2:08 PM Date of : 1955 Age: 64 Room: [facility] Gender: Male Note Status: Finalized Procedure: Colonoscopy Indications: High risk colon cancer surveillance: Personal history of colonic polyps Providers: David RAMIREZ MD Referring MD: ZAHRAA BLUNT [facility] Rick Requesting Provider: Medicines: Monitored Anesthesia Care Complications: No immediate complications. Procedure: Pre-Anesthesia Assessment: - The heart rate, respiratory rate, oxygen saturations, blood pressure, adequacy of pulmonary ventilation, and response to care were monitored throughout the procedure. The Colonoscope was introduced through the anus and advanced to 5 cm into the ileum. The colonoscopy was performed without difficulty. The patient tolerated the procedure well. The quality of the bowel preparation was adequate and fair. Findings: The perianal and digital rectal examinations were normal. A 10 mm polyp was found in the ileocecal valve. The polyp was semi-sessile. The polyp was removed with a piecemeal technique using a cold snare. Resection and retrieval were complete. Mild sigmoid diverticulosis and small internal hemorrhoids. The exam was otherwise without abnormality on direct and retroflexion views. Impression: - Preparation of the colon was fair/adequate. - One 10 mm polyp at the ileocecal valve, removed piecemeal using a cold snare. Resected and retrieved. - Mild sigmoid diverticulosis and small internal hemorrhoids. - The examination was otherwise normal on direct and retroflexion views. Recommendation: - Repeat colonoscopy in 1-2 years for surveillance based on pathology results. - Telephone endoscopist for pathology results in 2 weeks. - Return to my office as previously scheduled. - Return to referring physician as previously scheduled. Procedure Code(s): --- Professional --- 70095, Colonoscopy, flexible; with removal of tumor(s), polyp(s), or other lesion(s) by snare technique Diagnosis Code(s): --- Professional --- Z86.010, Personal history of colonic polyps K63.5, Polyp of colon CPT copyright 2019 [employer]. All rights reserved. The codes documented in this report are preliminary and upon radio machinist review may be revised to meet current compliance requirements. David Ramirez MD David RAMIREZ MD 06/06/2020 2:48:24 PM Electronically signed by David RAMIREZ MD Number of Addenda: 0 Note Initiated On: 06/06/2020 2:08 PM Estimated Blood Loss: Estimated blood loss: none.
[2020-06-06 15:18] VITALS: BP 103/60
== END 2020-06-06 19:49 | disposition home or self-care (01) ==
LOC: M OPP 11:58
PROVIDERS: ATTEND Internal Medicine Gastroenterology
DX: Z12.11 Encounter for screening for malignant neoplasm of colon (principal); Z86.010 Personal history of colon polyps; K74.60 Unspecified cirrhosis of liver; I85.10 Secondary esophageal varices without bleeding; D12.0 Benign neoplasm of cecum; K57.30 Diverticulosis of large intestine without perforation or abscess without bleeding; K64.8 Other hemorrhoids; D13.1 Benign neoplasm of stomach; K29.70 Gastritis, unspecified, without bleeding; K76.6 Portal hypertension; K31.89 Other diseases of stomach and duodenum; I48.91 Unspecified atrial fibrillation; I10 Essential (primary) hypertension; M19.90 Unspecified osteoarthritis, unspecified site; D72.819 Decreased white blood cell count, unspecified; D69.6 Thrombocytopenia, unspecified; R16.1 Splenomegaly, not elsewhere classified; Z79.01 Long term (current) use of anticoagulants; Z79.899 Other long term (current) drug therapy
CPT/HCPCS: 43239; 45385; 88305; 88342; J2370

== ENCOUNTER → 2020-07-18 | Outpatient (CLI) | payer MEDICAID, OTHER ==
[~2020-07-18] MED LIST changes: -NS 1,000 ML IV ONE
--- NOTE | 2020-07-18 07:54 | REP ---
INDICATION: CIRRHOSIS COMPARISON: 01/31/2018 TECHNIQUE: Real time garcia scale ultrasound examination using curved array transducer. FINDINGS: Liver demonstrates coarsened echotexture and moderate amount of ascites consistent with cirrhosis. No focal hepatic lesion identified. Color Doppler evaluation demonstrates flow in the niseha hepatis suggesting the possibility of cavernous transformation to the main portal vein. The pancreas is incompletely evaluated due to interposed bowel gas. Gallbladder demonstrates wall thickening and small gallstones. No biliary ductal dilatation is appreciated. The right kidney is normal in reniform shape without hydronephrosis and measures 11.4 x 6.1 x 5.7 cm. Incidental note is made of right pleural effusion. IMPRESSION: 1. Findings consistent with cirrhosis as described above including ascites and possible cavernous transformation to the main portal vein. 2. Cholelithiasis suspected. 3. Right pleural effusion. <Electronically signed by Daren Acevedo > 07/18/20 0758
== END ==
LOC: M RAD 06:28
PROVIDERS: ATTEND Internal Medicine Gastroenterology
DX: K74.69 Other cirrhosis of liver (principal); R18.8 Other ascites; J90 Pleural effusion, not elsewhere classified; R93.2 Abnormal findings on diagnostic imaging of liver and biliary tract

== ENCOUNTER → 2020-07-29 | Outpatient (CLI) | payer OTHER ==
[2020-07-29 14:06] LABS: BASO % 1.5 % (0.0-1.0); EOS # 0.2 10^3/uL (0.0-0.5); EOS % 6.7 % (0.0-3.0); HEMATOCRIT 38.8 % (42.0-52.0); LYMPH # 0.3 10^3/uL (1.5-5.0); LYMPH % 12.4 % (24.0-44.0); MEAN CORPUSCULAR HEMOGLOBIN 32.8 pg (27.0-33.0); MEAN CORPUSCULAR HGB CONC 33.5 g/dl (32.0-36.5); MONO # 0.2 10^3/uL (0.0-0.8); NEUTROPHILS # 1.9 10^3/uL (1.5-8.5); RED BLOOD COUNT 3.96 10^6/uL (4.30-6.10); WHITE BLOOD COUNT 2.7 10^3/uL (4.0-10.0)
[2020-07-29 14:08] LABS: PLATELET COUNT, AUTOMATED 67 10^3/uL (150-450)
[2020-07-29 14:16] LABS: INR 1.66; PROTHROMBIN TIME 19.9 SECONDS (12.5-14.3)
[2020-07-29 14:39] LABS: ALBUMIN 2.6 GM/DL (3.2-5.2); ALT/SGPT 19 U/L (12-78); BILIRUBIN,TOTAL 4.1 MG/DL (0.2-1.0); BLOOD UREA NITROGEN 11 MG/DL (7-18); CALCIUM LEVEL 8.5 MG/DL (8.8-10.2); CARBON DIOXIDE LEVEL 34 MEQ/L (21-32); CHLORIDE LEVEL 100 MEQ/L (98-107); CREATININE FOR GFR 0.72 MG/DL (0.70-1.30); GLOMERULAR FILTRATION RATE > 60.0 (>49); GLUCOSE, FASTING 108 MG/DL (70-100); SODIUM LEVEL 140 MEQ/L (136-145); TOTAL PROTEIN 6.9 GM/DL (6.4-8.2)
== END ==
LOC: M LAB 13:28
PROVIDERS: ATTEND Internal Medicine Gastroenterology
DX: K74.69 Other cirrhosis of liver (principal)

== ENCOUNTER → 2020-11-05 | Outpatient (CLI) | payer OTHER ==
[2020-11-05 10:31] LABS: BASO # 0.1 10^3/uL (0.0-0.2); BASO % 1.3 % (0.0-1.0); EOS # 0.5 10^3/uL (0.0-0.5); EOS % 12.5 % (0.0-3.0); HEMATOCRIT 36.9 % (42.0-52.0); HEMOGLOBIN 12.4 g/dl (13.5-17.5); LYMPH # 0.5 10^3/uL (1.5-5.0); LYMPH % 11.7 % (24.0-44.0); MEAN CORPUSCULAR HEMOGLOBIN 32.7 pg (27.0-33.0); MEAN CORPUSCULAR HGB CONC 33.6 g/dl (32.0-36.5); MEAN CORPUSCULAR VOLUME 97.4 fl (80.0-96.0); MONO # 0.4 10^3/uL (0.0-0.8); MONO % 9.9 % (2.0-8.0); NEUTROPHILS # 2.5 10^3/uL (1.5-8.5); NEUTROPHILS % 64.3 % (36.0-66.0); RED BLOOD COUNT 3.79 10^6/uL (4.30-6.10); WHITE BLOOD COUNT 3.8 10^3/uL (4.0-10.0)
[2020-11-05 10:33] LABS: PLATELET COUNT, AUTOMATED 88 10^3/uL (150-450)
[2020-11-05 11:03] LABS: INR 1.76; PROTHROMBIN TIME 20.9 SECONDS (12.5-14.3)
[2020-11-05 11:05] LABS: ALBUMIN 2.9 GM/DL (3.2-5.2); ALT/SGPT 30 U/L (12-78); BILIRUBIN,TOTAL 2.8 MG/DL (0.2-1.0); BLOOD UREA NITROGEN 12 MG/DL (7-18); CALCIUM LEVEL 8.8 MG/DL (8.8-10.2); CARBON DIOXIDE LEVEL 30 MEQ/L (21-32); CHLORIDE LEVEL 102 MEQ/L (98-107); CREATININE FOR GFR 0.77 MG/DL (0.70-1.30); GLOMERULAR FILTRATION RATE > 60.0 (>49); GLUCOSE, FASTING 99 MG/DL (70-100); SODIUM LEVEL 139 MEQ/L (136-145)
== END ==
LOC: M LAB 09:33
PROVIDERS: ATTEND Internal Medicine Gastroenterology
DX: K75.81 Nonalcoholic steatohepatitis (NASH) (principal)

== ENCOUNTER → 2020-12-10 | Outpatient (CLI) | payer OTHER ==
[2020-12-10 13:54] LABS: BASO % 1.3 % (0.0-1.0); EOS # 0.2 10^3/uL (0.0-0.5); EOS % 8.6 % (0.0-3.0); HEMOGLOBIN 12.1 g/dl (13.5-17.5); LYMPH # 0.5 10^3/uL (1.5-5.0); LYMPH % 22.8 % (24.0-44.0); MEAN CORPUSCULAR HEMOGLOBIN 33.4 pg (27.0-33.0); MEAN CORPUSCULAR HGB CONC 33.6 g/dl (32.0-36.5); MEAN CORPUSCULAR VOLUME 99.4 fl (80.0-96.0); MONO # 0.1 10^3/uL (0.0-0.8); MONO % 2.6 % (2.0-8.0); NEUTROPHILS # 1.5 10^3/uL (1.5-8.5); NEUTROPHILS % 63.8 % (36.0-66.0); PLATELET COUNT, AUTOMATED 72 10^3/uL (150-450); RED BLOOD COUNT 3.62 10^6/uL (4.30-6.10); WHITE BLOOD COUNT 2.3 10^3/uL (4.0-10.0)
[2020-12-10 13:59] LABS: INR 1.52; PROTHROMBIN TIME 18.7 SECONDS (12.7-14.5)
[2020-12-10 15:03] LABS: ALBUMIN 2.8 GM/DL (3.2-5.2); ALT/SGPT 30 U/L (12-78); BILIRUBIN,TOTAL 1.6 MG/DL (0.2-1.0); BLOOD UREA NITROGEN 14 MG/DL (7-18); CALCIUM LEVEL 8.5 MG/DL (8.8-10.2); CARBON DIOXIDE LEVEL 28 MEQ/L (21-32); CHLORIDE LEVEL 107 MEQ/L (98-107); CREATININE FOR GFR 0.72 MG/DL (0.70-1.30); GLOMERULAR FILTRATION RATE > 60.0 (>49); GLUCOSE, FASTING 90 MG/DL (70-100); MAGNESIUM LEVEL 2.1 MG/DL (1.8-2.4); POTASSIUM SERUM 4.6 MEQ/L (3.5-5.1); SODIUM LEVEL 138 MEQ/L (136-145); TOTAL PROTEIN 6.6 GM/DL (6.4-8.2)
== END ==
LOC: M LAB 12:32
PROVIDERS: ATTEND Internal Medicine Gastroenterology
DX: K75.81 Nonalcoholic steatohepatitis (NASH) (principal)

== ENCOUNTER → 2021-02-23 | Outpatient (CLI) | payer OTHER ==
[2021-02-23 14:00] LABS: BASO % 1.1 % (0.0-1.0); EOS # 0.2 10^3/uL (0.0-0.5); EOS % 6.8 % (0.0-3.0); HEMATOCRIT 39.5 % (42.0-52.0); LYMPH # 0.3 10^3/uL (1.5-5.0); LYMPH % 10.6 % (24.0-44.0); MEAN CORPUSCULAR HEMOGLOBIN 31.6 pg (27.0-33.0); MEAN CORPUSCULAR HGB CONC 32.9 g/dl (32.0-36.5); MEAN CORPUSCULAR VOLUME 95.9 fl (80.0-96.0); MONO # 0.2 10^3/uL (0.0-0.8); NEUTROPHILS # 1.9 10^3/uL (1.5-8.5); NEUTROPHILS % 72.7 % (36.0-66.0); RED BLOOD COUNT 4.12 10^6/uL (4.30-6.10); WHITE BLOOD COUNT 2.6 10^3/uL (4.0-10.0)
[2021-02-23 14:03] LABS: PLATELET COUNT, AUTOMATED 74 10^3/uL (150-450)
[2021-02-23 14:22] LABS: ALBUMIN 2.6 GM/DL (3.2-5.2); ALT/SGPT 32 U/L (12-78); BILIRUBIN,TOTAL 2.3 MG/DL (0.2-1.0); BLOOD UREA NITROGEN 11 MG/DL (7-18); CALCIUM LEVEL 9.2 MG/DL (8.8-10.2); CARBON DIOXIDE LEVEL 29 MEQ/L (21-32); CHLORIDE LEVEL 106 MEQ/L (98-107); CREATININE FOR GFR 0.67 MG/DL (0.70-1.30); GLOMERULAR FILTRATION RATE > 60.0 (>49); GLUCOSE, FASTING 105 MG/DL (70-100); POTASSIUM SERUM 4.5 MEQ/L (3.5-5.1); SODIUM LEVEL 138 MEQ/L (136-145); TOTAL PROTEIN 6.7 GM/DL (6.4-8.2)
== END ==
LOC: M LAB 12:19
PROVIDERS: ATTEND Internal Medicine Gastroenterology
DX: I81 Portal vein thrombosis (principal); K74.60 Unspecified cirrhosis of liver; I85.00 Esophageal varices without bleeding

== ENCOUNTER → 2021-02-24 | Outpatient (CLI) | payer OTHER ==
[~2021-02-24] MED LIST changes: +GASTROGRAFIN SOLUTION 30ML (Q9963) As Ordered ONE; +ISOVUE-370 76% 100ML VIAL As Ordered ONE
--- NOTE | 2021-02-24 17:27 | REP ---
INDICATION: UNSPECIFIED CIRRHOSIS OF LIVER, THORNE. COMPARISON: 04/28/2020 the latest prior TECHNIQUE: Standard helical technique after the intravenous administration of 100 cc Isovue 370 and oral bowel preparatory contrast administration. FINDINGS: There is a small to moderate left pleural effusion which is unchanged. The large right pleural effusion has diminished in size, however, there is a new patchy opacity in the right lower lobe abutting the effusion. This could have been obscured by the effusion on the prior exam or represents a new opacity. There is a small amount of free fluid seen adjacent to the hepatic edge laterally. Once again, there are cirrhotic features to the liver status quo. No abnormal enhancing masses have developed. There is splenomegaly status quo. There is marked splenic varices status quo. There are separate spleno renal varices also unchanged. There is a small amount of fluid or on the gallbladder. The pancreas, adrenal glands, and kidneys are unchanged. There is no change in the abdominal aorta or para-regions. There is extensive sigmoid colon diverticulosis status quo. There is no evidence of free intraperitoneal air. There is chronic mesenteric congestion status quo. There is no evidence of intestinal obstruction. 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 There is no significant change in the osseous structures. There are spinal degenerative changes and discogenic changes with a stable grade 2 L5 upon S1 spondylolisthesis. IMPRESSION: 1. Right lower lobe opacity and small right pleural effusion as described above. Pneumonia versus a true mass somewhat less likely due to which large size, however, the effusion seen on the prior exam could have obscured this. Follow-up is recommended. 2. Essentially unchanged left pleural effusion. 3. Chronic vascular changes as described above. 4. Cirrhosis and splenomegaly status quo. 5. Other chronic changes as described above <Electronically signed by Kyler Aguilera > 02/24/21 1034
== END ==
LOC: M RAD 13:54
PROVIDERS: ATTEND Internal Medicine Gastroenterology
DX: K75.81 Nonalcoholic steatohepatitis (NASH) (principal); K74.60 Unspecified cirrhosis of liver; I81 Portal vein thrombosis
CPT/HCPCS: 74177; Q9963; Q9967

== ENCOUNTER → 2021-03-24 | Outpatient (CLI) | payer OTHER ==
[~2021-03-24] MED LIST changes: -GASTROGRAFIN SOLUTION 30ML (Q9963) As Ordered ONE
[2021-03-24 08:15] LABS: BASO % 0.9 % (0.0-1.0); EOS # 0.2 10^3/uL (0.0-0.5); HEMATOCRIT 37.7 % (42.0-52.0); HEMOGLOBIN 12.4 g/dl (13.5-17.5); LYMPH # 0.2 10^3/uL (1.5-5.0); LYMPH % 10.3 % (24.0-44.0); MEAN CORPUSCULAR HEMOGLOBIN 31.4 pg (27.0-33.0); MEAN CORPUSCULAR HGB CONC 32.9 g/dl (32.0-36.5); MEAN CORPUSCULAR VOLUME 95.4 fl (80.0-96.0); MONO # 0.2 10^3/uL (0.0-0.8); MONO % 8.9 % (2.0-8.0); NEUTROPHILS # 1.6 10^3/uL (1.5-8.5); NEUTROPHILS % 71.5 % (36.0-66.0); RED BLOOD COUNT 3.95 10^6/uL (4.30-6.10); WHITE BLOOD COUNT 2.2 10^3/uL (4.0-10.0)
[2021-03-24 08:16] LABS: PLATELET COUNT, AUTOMATED 72 10^3/uL (150-450)
[2021-03-24 08:36] LABS: INR 1.59; PROTHROMBIN TIME 19.4 SECONDS (12.7-14.5)
[2021-03-24 08:52] LABS: ALBUMIN 2.5 GM/DL (3.2-5.2); ALT/SGPT 25 U/L (12-78); BILIRUBIN,TOTAL 2.3 MG/DL (0.2-1.0); BLOOD UREA NITROGEN 9 MG/DL (7-18); CALCIUM LEVEL 8.8 MG/DL (8.8-10.2); CARBON DIOXIDE LEVEL 27 MEQ/L (21-32); CHLORIDE LEVEL 108 MEQ/L (98-107); CREATININE FOR GFR 0.69 MG/DL (0.70-1.30); GLOMERULAR FILTRATION RATE > 60.0 (>49); GLUCOSE, FASTING 115 MG/DL (70-100); POTASSIUM SERUM 4.2 MEQ/L (3.5-5.1); SODIUM LEVEL 140 MEQ/L (136-145); TOTAL PROTEIN 6.6 GM/DL (6.4-8.2)
--- NOTE | 2021-03-24 09:13 | REP ---
INDICATION: OTHER NONSPECIFIC ADNORMAL FINDING- LABS FIRST COMPARISON: 04/28/2020 TECHNIQUE: Axial contrast enhanced images from the thoracic inlet to the upper abdomen with coronal and sagittal reformations using 75 ml Isovue 370 intravenous contrast material. This CT examination was performed using the following dose reduction techniques: Automated exposure control, adjustment of mA and/or kv according to the patient's size, and use of iterative reconstruction technique. FINDINGS: Lung pastrana demonstrate relatively stable and likely chronic reticulonodular interstitial changes primarily noted in the visualized aerated right upper lobes along with moderate bilateral pleural effusions (left greater than right), bibasilar atelectasis, and rounded area of consolidation versus mass in the right base measuring 5.1 x 2.9 x 2.9 cm. Few small scattered noncalcified nodules including the previously identified right middle lobe nodule are identified and nonspecific in appearance. No significant adenopathy is appreciated. Tracheobronchial tree is patent. Further evaluation of the mediastinum demonstrates stable atherosclerotic changes to the thoracic aorta and coronary arteries without aortic aneurysm or dissection. No significant cardiomegaly or pericardial effusion identified. Limited upper abdomen demonstrates findings consistent with cirrhosis and portal hypertension including portosystemic shunting, collateral vasculature and splenomegaly. Visualized osseous structures appear intact. IMPRESSION: 1. Ascites and pleuroparenchymal changes as described above are nonspecific and likely predominantly related to cirrhosis. A 3-6 month follow-up examination to evaluate for resolution of suspected basilar atelectasis and right lower lobe consolidation (less likely representing mass) is warranted. <Electronically signed by Daren Acevedo > 03/24/21 0909
== END ==
LOC: M RAD 07:10
PROVIDERS: ATTEND Internal Medicine Gastroenterology
DX: R91.8 Other nonspecific abnormal finding of lung field (principal); R91.1 Solitary pulmonary nodule; J90 Pleural effusion, not elsewhere classified; J84.9 Interstitial pulmonary disease, unspecified; R18.8 Other ascites; K75.81 Nonalcoholic steatohepatitis (NASH)
CPT/HCPCS: 36415; 71260; 80053; 85025; 85049; 85055; 85610; Q9967

== ENCOUNTER → 2021-03-24 | Outpatient (CLI) | payer OTHER ==
[~2021-03-24] MED LIST changes: -ISOVUE-370 76% 100ML VIAL As Ordered ONE
[2021-03-24 08:59] LABS: CHOLESTEROL RISK RATIO 2.095 (<5); THYROID STIMULATING HORMONE 1.55 uIU/ML (0.358-3.740)
[2021-03-24 09:35] LABS: TOTAL 25(OH) VITAMIN D 21.9 NG/ML (30.0-100.0)
[2021-03-24 10:01] LABS: HEMOGLOBIN A1c 5.4 %
== END ==
LOC: M LAB 07:13
PROVIDERS: ATTEND Nurse Practitioner Family
DX: E55.9 Vitamin D deficiency, unspecified (principal); R73.01 Impaired fasting glucose; Z13.220 Encounter for screening for lipoid disorders; I48.0 Paroxysmal atrial fibrillation

== ENCOUNTER → 2021-07-22 | Outpatient (CLI) | payer MEDICARE, OTHER ==
[~2021-07-22] MED LIST changes: +GASTROGRAFIN SOLUTION 30ML (Q9963) ONE; +ISOVUE-370 76% 100ML VIAL ONE; -OMEP-221; +OMEP40CA5
== END ==
LOC: M PLAIMG 08:14
PROVIDERS: ATTEND Internal Medicine Gastroenterology
DX: R91.1 Solitary pulmonary nodule (principal); I81 Portal vein thrombosis; K74.69 Other cirrhosis of liver; K75.81 Nonalcoholic steatohepatitis (NASH)
CPT/HCPCS: 71260; 74177; Q9963; Q9967

== ENCOUNTER → 2021-09-28 | Outpatient (CLI) | payer MEDICARE, OTHER ==
[~2021-09-28] MED LIST changes: -GASTROGRAFIN SOLUTION 30ML (Q9963) ONE; -ISOVUE-370 76% 100ML VIAL ONE
== END ==
LOC: M PLAIMG 09:57
PROVIDERS: ATTEND Internal Medicine Pulmonary Disease
DX: R91.8 Other nonspecific abnormal finding of lung field (principal); I70.0 Atherosclerosis of aorta; I25.10 Atherosclerotic heart disease of native coronary artery without angina pectoris; J90 Pleural effusion, not elsewhere classified

== ENCOUNTER → 2021-09-29 | Outpatient (CLI) | payer MEDICARE, OTHER ==
[2021-09-29 17:39] LABS: PLATELET COUNT, AUTOMATED 83 10^3/uL (150-450)
[2021-09-29 17:40] LABS: INR 1.48; PROTHROMBIN TIME 18.3 SECONDS (12.7-14.5)
== END ==
LOC: M LAB 16:24
PROVIDERS: ATTEND Internal Medicine Pulmonary Disease
DX: Z01.812 Encounter for preprocedural laboratory examination (principal); Z79.01 Long term (current) use of anticoagulants

== ENCOUNTER → 2021-10-19 | Outpatient (CLI) | payer MEDICARE, OTHER | LOC: M PLARAD 13:30 | PROVIDERS: ATTEND Internal Medicine Pulmonary Disease | DX: R91.8 Other nonspecific abnormal finding of lung field (principal); I65.23 Occlusion and stenosis of bilateral carotid arteries; J90 Pleural effusion, not elsewhere classified; I70.0 Atherosclerosis of aorta; I25.10 Atherosclerotic heart disease of native coronary artery without angina pectoris; I34.8 Other nonrheumatic mitral valve disorders; R16.1 Splenomegaly, not elsewhere classified; K44.9 Diaphragmatic hernia without obstruction or gangrene; K57.90 Diverticulosis of intestine, part unspecified, without perforation or abscess without bleeding; J98.11 Atelectasis; I51.7 Cardiomegaly | CPT/HCPCS: 78815; A9552 ==

== ENCOUNTER → 2022-01-18 | Outpatient (CLI) | payer MEDICARE, OTHER | LOC: M RAD 08:10 | PROVIDERS: ATTEND Internal Medicine Pulmonary Disease | DX: R91.8 Other nonspecific abnormal finding of lung field (principal) ==

== ENCOUNTER → 2022-02-16 | Outpatient (CLI) | payer MEDICARE, OTHER ==
[2022-02-16 16:57] LABS: BASO % 0.9 % (0.0-1.0); EOS # 0.2 10^3/uL (0.0-0.5); EOS % 10.8 % (0.0-3.0); HEMATOCRIT 40.1 % (42.0-52.0); HEMOGLOBIN 13.5 g/dl (13.5-17.5); LYMPH # 0.3 10^3/uL (1.5-5.0); LYMPH % 12.3 % (24.0-44.0); MEAN CORPUSCULAR HEMOGLOBIN 31.7 pg (27.0-33.0); MEAN CORPUSCULAR HGB CONC 33.7 g/dl (32.0-36.5); MEAN CORPUSCULAR VOLUME 94.1 fl (80.0-96.0); MONO # 0.2 10^3/uL (0.0-0.8); MONO % 7.5 % (2.0-8.0); NEUTROPHILS # 1.4 10^3/uL (1.5-8.5); RED BLOOD COUNT 4.26 10^6/uL (4.30-6.10); WHITE BLOOD COUNT 2.1 10^3/uL (4.0-10.0)
[2022-02-16 17:10] LABS: INR 1.47; PROTHROMBIN TIME 18.1 SECONDS (12.5-14.5)
[2022-02-16 17:30] LABS: PLATELET COUNT, AUTOMATED 65 10^3/uL (150-450)
[2022-02-16 17:31] LABS: ALBUMIN 2.9 GM/DL (3.2-5.2); ALT/SGPT 22 U/L (12-78); BILIRUBIN,TOTAL 2.1 MG/DL (0.2-1.0); BLOOD UREA NITROGEN 7 MG/DL (7-18); CALCIUM LEVEL 8.5 MG/DL (8.8-10.2); CARBON DIOXIDE LEVEL 30 MEQ/L (21-32); CHLORIDE LEVEL 105 MEQ/L (98-107); GLOMERULAR FILTRATION RATE > 60.0 (>49); GLUCOSE, FASTING 121 MG/DL (70-100); POTASSIUM SERUM 3.9 MEQ/L (3.5-5.1); SODIUM LEVEL 138 MEQ/L (136-145); TOTAL PROTEIN 6.6 GM/DL (6.4-8.2)
== END ==
LOC: M LAB 16:12
PROVIDERS: ATTEND Internal Medicine Gastroenterology
DX: K74.60 Unspecified cirrhosis of liver (principal)

== ENCOUNTER → 2022-03-15 | Outpatient (CLI) | payer MEDICARE, OTHER ==
[2022-03-15 16:05] LABS: CHOLESTEROL RISK RATIO 2.35 (<5)
[2022-03-15 16:27] LABS: TOTAL 25(OH) VITAMIN D 19.4 NG/ML (30.0-100.0)
[2022-03-15 22:30] LABS: HEMOGLOBIN A1c 5.1 %
== END ==
LOC: M PLALAB 10:59
PROVIDERS: ATTEND Nurse Practitioner Family
DX: R73.01 Impaired fasting glucose (principal); E55.9 Vitamin D deficiency, unspecified; Z13.220 Encounter for screening for lipoid disorders

== ENCOUNTER 2022-03-31 08:27 | Emergency (ER) | payer OTHER, MEDICARE ==
[~2022-03-31] VITALS: Ht 170.2 cm; Wt 96.4 kg
[2022-03-31 09:19] LABS: BASO % 1.1 % (0.0-1.0); EOS # 0.3 10^3/uL (0.0-0.5); EOS % 7.1 % (0.0-3.0); HEMATOCRIT 42.7 % (42.0-52.0); HEMOGLOBIN 14.2 g/dl (13.5-17.5); LYMPH # 0.4 10^3/uL (1.5-5.0); MEAN CORPUSCULAR HEMOGLOBIN 31.3 pg (27.0-33.0); MEAN CORPUSCULAR HGB CONC 33.3 g/dl (32.0-36.5); MEAN CORPUSCULAR VOLUME 94.3 fl (80.0-96.0); MONO # 0.4 10^3/uL (0.0-0.8); MONO % 10.3 % (2.0-8.0); NEUTROPHILS # 2.4 10^3/uL (1.5-8.5); NEUTROPHILS % 68.9 % (36.0-66.0); PLATELET COUNT, AUTOMATED 85 10^3/uL (150-450); RED BLOOD COUNT 4.53 10^6/uL (4.30-6.10); WHITE BLOOD COUNT 3.5 10^3/uL (4.0-10.0)
[2022-03-31] MEDS ORDERED: ONDANSETRON 4MG 2ML VIAL IV ONE (09:25)
[2022-03-31] MEDS ORDERED: MORPHINE 2 MG/ML 1ML VIAL IV ONE (09:25)
[2022-03-31 09:29] LABS: INR 1.59; PARTIAL THROMBOPLASTIN TIME 33.9 SECONDS (24.8-34.2); PROTHROMBIN TIME 19.3 SECONDS (12.5-14.5)
[2022-03-31] MEDS ORDERED: ISOVUE-370 76% 100ML VIAL As Ordered ONE (09:45)
[2022-03-31 09:52] LABS: ALBUMIN 2.8 G/DL (3.2-5.2); BILIRUBIN,TOTAL 2.1 MG/DL (0.3-1.2); TOTAL PROTEIN 6.6 G/DL (5.7-8.2)
[2022-03-31 10:47] VITALS: BP 104/87
== END 2022-03-31 11:06 | disposition home or self-care (01) ==
LOC: M ED 08:27 → EDBD 08:27 → M ED 11:06
DX: R10.9 Unspecified abdominal pain (principal); V49.50XA Passenger injured in collision with unspecified motor vehicles in traffic accident, initial encounter; I10 Essential (primary) hypertension; K70.30 Alcoholic cirrhosis of liver without ascites; Z79.01 Long term (current) use of anticoagulants; Z79.899 Other long term (current) drug therapy
CPT/HCPCS: 74177; 80047; 80076; 83690; 85025; 85049; 85055; 85610; 85730; 86850; 86900; 86901; 96374; 96375; 99284; J2270; J2405

== ENCOUNTER → 2022-04-05 | Outpatient (CLI) | payer OTHER | LOC: M RAD 09:20 | PROVIDERS: ATTEND Internal Medicine Gastroenterology | DX: K74.60 Unspecified cirrhosis of liver (principal); R14.0 Abdominal distension (gaseous); R16.1 Splenomegaly, not elsewhere classified; J90 Pleural effusion, not elsewhere classified; R18.8 Other ascites ==

== ENCOUNTER 2022-06-16 10:05 | Inpatient (IN) | payer MEDICARE, OTHER ==
[~2022-06-16] VITALS: Ht 170.2 cm; Wt 100.2 kg
[2022-06-16] MEDS ORDERED: AMIL25TA PO (10:28)
[2022-06-16] MEDS: METOPROLOL 5 MG/5 ML VIAL IV SCH ×3 (12:22→12:39)
[2022-06-16 12:26] LABS: BASO % 0.5 % (0.0-1.0); EOS % 0.5 % (0.0-3.0); HEMATOCRIT 48.6 % (42.0-52.0); HEMOGLOBIN 16.4 g/dl (13.5-17.5); LYMPH # 0.3 10^3/uL (1.5-5.0); LYMPH % 4.5 % (24.0-44.0); MEAN CORPUSCULAR HEMOGLOBIN 32.2 pg (27.0-33.0); MEAN CORPUSCULAR HGB CONC 33.7 g/dl (32.0-36.5); MEAN CORPUSCULAR VOLUME 95.3 fl (80.0-96.0); MONO # 0.7 10^3/uL (0.0-0.8); MONO % 8.7 % (2.0-8.0); NEUTROPHILS # 6.4 10^3/uL (1.5-8.5); NEUTROPHILS % 85.1 % (36.0-66.0); PLATELET COUNT, AUTOMATED 101 10^3/uL (150-450); WHITE BLOOD COUNT 7.6 10^3/uL (4.0-10.0)
[2022-06-16 12:35] LABS: INR 1.39; PROTHROMBIN TIME 17.3 SECONDS (12.5-14.5)
[2022-06-16 12:59] LABS: RSV AMPLIFICATION NEGATIVE (NEGATIVE)
[2022-06-16] MEDS ORDERED: METOPROLOL TART 50 MG TAB PO ONE ×2 (13:10→16:25)
[2022-06-16 13:26] LABS: ALBUMIN 3.3 G/DL (3.2-5.2); ALKALINE PHOSPHATASE 72 U/L (46-116); ALT/SGPT 27 U/L (7.0-40); AST/SGOT 70 U/L (<34); BILIRUBIN,DIRECT 2.1 MG/DL (<0.4); BILIRUBIN,TOTAL 6.2 MG/DL (0.3-1.2); BLOOD UREA NITROGEN 6 MG/DL (9-23); CALCIUM LEVEL 8.7 MG/DL (8.3-10.6); CARBON DIOXIDE LEVEL 29 MMOL/L (20-31); CHLORIDE LEVEL 95 MMOL/L (98-107); CK-MB VALUE MASS 1.2 NG/ML (<3.6); CPK CREATINE PHOSPHOKINASE 137 U/L (46-171); CREATININE FOR GFR 0.67 MG/DL (0.70-1.30); GLOMERULAR FILTRATION RATE > 60.0 (>49); GLUCOSE, FASTING 148 MG/DL (74-106); MB/CK RELATIVE INDEX 0.87 (< OR =4); POTASSIUM SERUM 4.6 MMOL/L (3.5-5.1); SODIUM LEVEL 134 MMOL/L (136-145); THYROID STIMULATING HORMONE 3.034 uIU/ML (0.55-4.78); TOTAL PROTEIN 8.2 G/DL (5.7-8.2)
[2022-06-16] MEDS ORDERED: GI COCKTAIL 50ML BTL(HYOSCYAMINE/MAALOX/LIDOCAINE VISCOUS)(1:3:1) PO ONE (13:40)
[2022-06-16 14:09] LABS: CK-MB VALUE MASS < 1.0 NG/ML (<3.6)
[2022-06-16 14:10] LABS: CPK CREATINE PHOSPHOKINASE 99 U/L (46-171); MB/CK RELATIVE INDEX 1.01 (< OR =4)
[2022-06-16] MEDS ORDERED: ISOVUE-370 76% 100ML VIAL As Ordered ONE (14:19)
[2022-06-16] MEDS ORDERED: MORPHINE 2 MG/ML 1ML VIAL IV PRN (15:25)
[2022-06-16] MEDS ORDERED: DIGOXIN INJ 0.5 MG/2 ML AMP IV ONE ×2 (16:25→21:00)
[2022-06-16] MEDS ORDERED: ELIQ5TAB PO (17:19)
[2022-06-16] MEDS ORDERED: FURO40TA2 PO (17:19)
[2022-06-16] MEDS ORDERED: METO100T5 PO (17:19)
[2022-06-16] MEDS ORDERED: HOME MED LIST COMPLETE! XX SCH (17:20)
[2022-06-16] MEDS ORDERED: ACETAMINOPHEN TAB 650MG DOSE (2X325MG) PO PRN (17:30)
[2022-06-16] MEDS: FUROSEMIDE 20MG/2ML VIAL IV SCH (19:55)
[2022-06-16] MEDS: APIXABAN 5 MG TAB (ELIQUIS) PO SCH (21:35)
[2022-06-16 22:17] VITALS: BP 117/89
[2022-06-17] VITALS: BP 112/82
[2022-06-17] MEDS ORDERED: DIGOXIN INJ 0.5 MG/2 ML AMP IV ONE (02:00)
[2022-06-17 04:00] VITALS: BP 114/87
[2022-06-17 05:24] LABS: HEMOGLOBIN 14.9 g/dl (13.5-17.5); MEAN CORPUSCULAR HEMOGLOBIN 32.6 pg (27.0-33.0); MEAN CORPUSCULAR HGB CONC 33.9 g/dl (32.0-36.5); MEAN CORPUSCULAR VOLUME 96.3 fl (80.0-96.0); RED BLOOD COUNT 4.57 10^6/uL (4.30-6.10); WHITE BLOOD COUNT 8.7 10^3/uL (4.0-10.0)
[2022-06-17 05:27] LABS: PLATELET COUNT, AUTOMATED 76 10^3/uL (150-450)
[2022-06-17 05:32] LABS: DIGOXIN LEVEL 1.4 NG/ML (0.8-2.0)
[2022-06-17 08:00] VITALS: BP 107/75
[2022-06-17 08:18] LABS: ALBUMIN 2.6 G/DL (3.2-5.2); ALKALINE PHOSPHATASE 60 U/L (46-116); ALT/SGPT 20 U/L (7.0-40); AST/SGOT 44 U/L (<34); BILIRUBIN,TOTAL 6.4 MG/DL (0.3-1.2); BLOOD UREA NITROGEN 10 MG/DL (9-23); CALCIUM LEVEL 8.2 MG/DL (8.3-10.6); CARBON DIOXIDE LEVEL 29 MMOL/L (20-31); CHLORIDE LEVEL 98 MMOL/L (98-107); CREATININE FOR GFR 0.66 MG/DL (0.70-1.30); GLOMERULAR FILTRATION RATE > 60.0 (>49); GLUCOSE, FASTING 98 MG/DL (74-106); MAGNESIUM LEVEL 1.4 MG/DL (1.8-2.4); POTASSIUM SERUM 4.2 MMOL/L (3.5-5.1); SODIUM LEVEL 135 MMOL/L (136-145); TOTAL PROTEIN 6.6 G/DL (5.7-8.2)
[2022-06-17] MEDS ORDERED: aMILoride 5 MG TAB PO SCH (09:00)
[2022-06-17] MEDS ORDERED: METOPROLOL TARTRATE 100MG TAB PO SCH (09:00)
[2022-06-17 09:22] VITALS: BP 107/75
[2022-06-17] MEDS: APIXABAN 5 MG TAB (ELIQUIS) PO SCH (09:22)
[2022-06-17] MEDS: FUROSEMIDE 20MG/2ML VIAL IV SCH (09:23)
[2022-06-17] MEDS ORDERED: MAGNESIUM OXIDE 400MG TAB (MAG-OX) PO ONE (09:30)
[2022-06-17 12:00] VITALS: BP 125/86
[2022-06-17] MEDS ORDERED: DIGO0.123 PO (15:11)
[2022-06-17 16:00] VITALS: BP 112/76
== END 2022-06-17 17:20 | disposition home or self-care (01) | DRG 309 ==
LOC: M ED 10:05 → M ED INP 17:26 → M PCU 22:11
PROVIDERS: ADMIT Family Medicine; ATTEND Family Medicine
PROC: B246ZZZ Ultrasonography of Right and Left Heart (ICD-10-PCS; principal; 2022-06-17)
DX: I48.0 Paroxysmal atrial fibrillation (principal); R18.8 Other ascites; J90 Pleural effusion, not elsewhere classified; K75.81 Nonalcoholic steatohepatitis (NASH); E87.70 Fluid overload, unspecified; R60.0 Localized edema; I10 Essential (primary) hypertension; Z79.01 Long term (current) use of anticoagulants; Z79.899 Other long term (current) drug therapy

== ENCOUNTER → 2022-07-15 | Outpatient (CLI) | payer MEDICARE, OTHER ==
[~2022-07-15] MED LIST changes: +AMIL25TA PO; +DIGO0.123 PO; +METO100T5 PO
[2022-07-15 10:34] LABS: BASO # 0.1 10^3/uL (0.0-0.2); BASO % 1.4 % (0.0-1.0); EOS # 0.5 10^3/uL (0.0-0.5); EOS % 10.4 % (0.0-3.0); HEMATOCRIT 47.3 % (42.0-52.0); HEMOGLOBIN 15.2 g/dl (13.5-17.5); LYMPH # 0.5 10^3/uL (1.5-5.0); LYMPH % 9.4 % (24.0-44.0); MEAN CORPUSCULAR HEMOGLOBIN 31.7 pg (27.0-33.0); MEAN CORPUSCULAR HGB CONC 32.1 g/dl (32.0-36.5); MEAN CORPUSCULAR VOLUME 98.5 fl (80.0-96.0); MONO # 0.5 10^3/uL (0.0-0.8); MONO % 9.6 % (2.0-8.0); NEUTROPHILS # 3.5 10^3/uL (1.5-8.5); NEUTROPHILS % 68.6 % (36.0-66.0); WHITE BLOOD COUNT 5.1 10^3/uL (4.0-10.0)
[2022-07-15 10:37] LABS: PLATELET COUNT, AUTOMATED 99 10^3/uL (150-450)
[2022-07-15 11:00] LABS: HEMOGLOBIN A1c 5.4 % (4.0-6.0)
[2022-07-15 11:04] LABS: ALBUMIN 2.7 G/DL (3.2-5.2); ALKALINE PHOSPHATASE 73 U/L (46-116); ALT/SGPT 21 U/L (7.0-40); AST/SGOT 30 U/L (<34); BILIRUBIN,TOTAL 2.5 MG/DL (0.3-1.2); BLOOD UREA NITROGEN 12 MG/DL (9-23); CALCIUM LEVEL 8.6 MG/DL (8.3-10.6); CARBON DIOXIDE LEVEL 31 MMOL/L (20-31); CHLORIDE LEVEL 105 MMOL/L (98-107); CREATININE FOR GFR 0.87 MG/DL (0.70-1.30); DIGOXIN LEVEL 0.4 NG/ML (0.8-2.0); GLOMERULAR FILTRATION RATE > 60.0 (>49); GLUCOSE, FASTING 122 MG/DL (74-106); POTASSIUM SERUM 5.5 MMOL/L (3.5-5.1); SODIUM LEVEL 140 MMOL/L (136-145); TOTAL PROTEIN 6.8 G/DL (5.7-8.2)
== END ==
LOC: M PLALAB 09:07
PROVIDERS: ATTEND Physician Assistant Medical
DX: R73.01 Impaired fasting glucose (principal); I48.0 Paroxysmal atrial fibrillation; I11.0 Hypertensive heart disease with heart failure; D69.6 Thrombocytopenia, unspecified; I50.32 Chronic diastolic (congestive) heart failure

== ENCOUNTER → 2022-10-29 | Outpatient (CLI) | payer MEDICARE, OTHER ==
[2022-10-29 09:15] VITALS: TEMP 97.5
[2022-10-29 09:53] LABS: BASO % 0.9 % (0.0-1.0); EOS # 0.2 10^3/uL (0.0-0.5); EOS % 5.3 % (0.0-3.0); HEMATOCRIT 41.5 % (42.0-52.0); HEMOGLOBIN 14.1 g/dl (13.5-17.5); LYMPH # 0.3 10^3/uL (1.5-5.0); MEAN CORPUSCULAR HEMOGLOBIN 32.5 pg (27.0-33.0); MEAN CORPUSCULAR VOLUME 95.6 fl (80.0-96.0); MONO # 0.3 10^3/uL (0.0-0.8); MONO % 9.5 % (2.0-8.0); NEUTROPHILS # 2.6 10^3/uL (1.5-8.5); PLATELET COUNT, AUTOMATED 100 10^3/uL (150-450); RED BLOOD COUNT 4.34 10^6/uL (4.30-6.10); WHITE BLOOD COUNT 3.4 10^3/uL (4.0-10.0)
[2022-10-29 10:02] LABS: INR 1.33; PROTHROMBIN TIME 16.7 SECONDS (12.5-14.5)
[2022-10-29 10:03] LABS: PARTIAL THROMBOPLASTIN TIME 29.7 SECONDS (24.8-34.2)
[2022-10-29 10:22] LABS: TOTAL PROTEIN 6.9 G/DL (5.7-8.2)
[2022-10-29 11:59] LABS: SOURCE, BODY FLUID PLEURAL
[2022-10-29 12:00] VITALS: BP 158/101; O2SAT 97
[2022-10-29 12:00] LABS: PH BODY FLUID 7.705 UNITS (NOT ESTABLISHED); SOURCE, BODY FLUID pH PLEURAL
[2022-10-29 12:01] LABS: APPEARANCE, BODY FLUID HAZY (CLEAR); PLEURAL FL COLOR AMBER (COLORLESS)
[2022-10-29 12:56] LABS: SOURCE, BODY FLUID ALBUMIN PLEURAL
[2022-10-29 13:01] LABS: SOURCE, BODY FLUID GLUCOSE PLEURAL; SOURCE, BODY FLUID TRIG PLEURAL; TRIGLYCERIDE, BODY FLUID 38 MG/DL (NOT ESTABLISHED)
[2022-10-29 13:02] LABS: LDH, BODY FLUID 137 U/L (NOT ESTABLISHED); SOURCE, BODY FLUID LDH PLEURAL
[2022-10-29 13:03] LABS: AMYLASE, BODY FLUID 26 U/L (NOT ESTABLISHED); CHOLESTEROL, BODY FLUID < 25 MG/DL (NOT ESTABLISHED); SOURCE, BODY FLUID AMYLASE PLEURAL; SOURCE, BODY FLUID CHOL PLEURAL; SOURCE, BODY FLUID TOT PROTEIN PLEURAL; TOTAL PROTEIN, BODY FLUID < 2.0 G/DL (NOT ESTABLISHED)
== END ==
LOC: M IRPRO 08:44
PROVIDERS: ATTEND Internal Medicine Pulmonary Disease
DX: J90 Pleural effusion, not elsewhere classified (principal); Z79.899 Other long term (current) drug therapy; Z79.01 Long term (current) use of anticoagulants

== ENCOUNTER → 2022-11-24 | Outpatient (CLI) | payer MEDICARE, OTHER | LOC: M RAD 08:48 | PROVIDERS: ATTEND Internal Medicine Gastroenterology | DX: K74.60 Unspecified cirrhosis of liver (principal); R18.8 Other ascites; R14.0 Abdominal distension (gaseous) ==

== ENCOUNTER → 2022-12-13 | Outpatient (CLI) | payer MEDICARE ==
[2022-12-13 14:52] LABS: BASO # 0.1 10^3/uL (0.0-0.2); BASO % 0.9 % (0.0-1.0); EOS # 0.3 10^3/uL (0.0-0.5); EOS % 4.6 % (0.0-3.0); HEMATOCRIT 41.9 % (42.0-52.0); HEMOGLOBIN 14.1 g/dl (13.5-17.5); LYMPH # 0.5 10^3/uL (1.5-5.0); LYMPH % 8.4 % (24.0-44.0); MEAN CORPUSCULAR HGB CONC 33.7 g/dl (32.0-36.5); MONO # 0.6 10^3/uL (0.0-0.8); MONO % 9.9 % (2.0-8.0); NEUTROPHILS # 4.4 10^3/uL (1.5-8.5); NEUTROPHILS % 75.5 % (36.0-66.0); PLATELET COUNT, AUTOMATED 138 10^3/uL (150-450); RED BLOOD COUNT 4.41 10^6/uL (4.30-6.10); WHITE BLOOD COUNT 5.9 10^3/uL (4.0-10.0)
[2022-12-13 15:01] LABS: INR 1.65; PROTHROMBIN TIME 19.8 SECONDS (12.5-14.5)
[2022-12-13 15:19] LABS: ALBUMIN 2.9 G/DL (3.2-5.2); ALKALINE PHOSPHATASE 63 U/L (46-116); ALT/SGPT 18 U/L (7.0-40); AST/SGOT 28 U/L (<34); BILIRUBIN,TOTAL 3.8 MG/DL (0.3-1.2); BLOOD UREA NITROGEN 8 MG/DL (9-23); CARBON DIOXIDE LEVEL 33 MMOL/L (20-31); CHLORIDE LEVEL 100 MMOL/L (98-107); CREATININE FOR GFR 0.78 MG/DL (0.70-1.30); GLOMERULAR FILTRATION RATE > 60.0 (>49); GLUCOSE, FASTING 130 MG/DL (74-106); POTASSIUM SERUM 3.5 MMOL/L (3.5-5.1); SODIUM LEVEL 140 MMOL/L (136-145); TOTAL PROTEIN 7.1 G/DL (5.7-8.2)
== END ==
LOC: M LAB 13:53
PROVIDERS: ATTEND Internal Medicine Gastroenterology
DX: K74.60 Unspecified cirrhosis of liver (principal)

== ENCOUNTER → 2023-03-15 | Outpatient (CLI) | payer MEDICARE, OTHER ==
[2023-03-15 15:50] LABS: BASO % 1.1 % (0.0-1.0); EOS # 0.1 10^3/uL (0.0-0.5); EOS % 3.6 % (0.0-3.0); HEMATOCRIT 43.4 % (42.0-52.0); HEMOGLOBIN 14.4 g/dl (13.5-17.5); LYMPH # 0.3 10^3/uL (1.5-5.0); LYMPH % 8.5 % (24.0-44.0); MEAN CORPUSCULAR HEMOGLOBIN 32.1 pg (27.0-33.0); MEAN CORPUSCULAR HGB CONC 33.2 g/dl (32.0-36.5); MEAN CORPUSCULAR VOLUME 96.9 fl (80.0-96.0); MONO # 0.4 10^3/uL (0.0-0.8); MONO % 10.5 % (2.0-8.0); NEUTROPHILS # 2.8 10^3/uL (1.5-8.5); NEUTROPHILS % 75.7 % (36.0-66.0); RED BLOOD COUNT 4.48 10^6/uL (4.30-6.10); WHITE BLOOD COUNT 3.6 10^3/uL (4.0-10.0)
[2023-03-15 15:52] LABS: PLATELET COUNT, AUTOMATED 95 10^3/uL (150-450)
[2023-03-15 16:23] LABS: DIGOXIN LEVEL < 0.1 NG/ML (0.8-2.0)
[2023-03-15 16:26] LABS: ALBUMIN 2.6 G/DL (3.2-5.2); ALKALINE PHOSPHATASE 74 U/L (46-116); ALT/SGPT 15 U/L (7.0-40); AST/SGOT 32 U/L (<34); BILIRUBIN,TOTAL 3.7 MG/DL (0.3-1.2); BLOOD UREA NITROGEN 7 MG/DL (9-23); CALCIUM LEVEL 8.7 MG/DL (8.3-10.6); CARBON DIOXIDE LEVEL 29 MMOL/L (20-31); CHLORIDE LEVEL 103 MMOL/L (98-107); CHOLESTEROL LEVEL 165 MG/DL (<200); CHOLESTEROL RISK RATIO 3.66 (<5); CREATININE FOR GFR 0.74 MG/DL (0.70-1.30); GLOMERULAR FILTRATION RATE > 60.0 (>49); GLUCOSE, FASTING 109 MG/DL (74-106); LDL CHOLESTEROL 101.2 MG/DL (<100); POTASSIUM SERUM 4.7 MMOL/L (3.5-5.1); SODIUM LEVEL 137 MMOL/L (136-145); TOTAL 25(OH) VITAMIN D 22.7 NG/ML (20.0-100.0); TOTAL PROTEIN 6.8 G/DL (5.7-8.2); TRIGLYCERIDES LEVEL 94 MG/DL (<150)
[2023-03-15 16:31] LABS: HEMOGLOBIN A1c 4.7 % (4.0-6.0)
== END ==
LOC: M PLALAB 11:34
PROVIDERS: ATTEND Nurse Practitioner Family
DX: I48.0 Paroxysmal atrial fibrillation (principal); K76.6 Portal hypertension; R73.01 Impaired fasting glucose; E55.9 Vitamin D deficiency, unspecified; K75.81 Nonalcoholic steatohepatitis (NASH); Z13.220 Encounter for screening for lipoid disorders

== ENCOUNTER → 2023-05-18 | Outpatient (CLI) | payer MEDICARE, OTHER ==
[2023-05-18 15:30] LABS: BASO # 0.1 10^3/uL (0.0-0.2); EOS # 0.2 10^3/uL (0.0-0.5); HEMATOCRIT 44.3 % (42.0-52.0); HEMOGLOBIN 14.8 g/dl (13.5-17.5); LYMPH # 0.4 10^3/uL (1.5-5.0); LYMPH % 8.6 % (24.0-44.0); MEAN CORPUSCULAR HEMOGLOBIN 32.3 pg (27.0-33.0); MEAN CORPUSCULAR HGB CONC 33.4 g/dl (32.0-36.5); MEAN CORPUSCULAR VOLUME 96.7 fl (80.0-96.0); MONO # 0.7 10^3/uL (0.0-0.8); MONO % 13.1 % (2.0-8.0); NEUTROPHILS # 3.6 10^3/uL (1.5-8.5); NEUTROPHILS % 72.9 % (36.0-66.0); PLATELET COUNT, AUTOMATED 122 10^3/uL (150-450); RED BLOOD COUNT 4.58 10^6/uL (4.30-6.10)
[2023-05-18 15:53] LABS: ALBUMIN 2.6 G/DL (3.2-5.2); ALKALINE PHOSPHATASE 83 U/L (46-116); ALT/SGPT 21 U/L (7.0-40); AST/SGOT 31 U/L (<34); BILIRUBIN,TOTAL 3.2 MG/DL (0.3-1.2); BLOOD UREA NITROGEN 11 MG/DL (9-23); CALCIUM LEVEL 8.7 MG/DL (8.3-10.6); CARBON DIOXIDE LEVEL 32 MMOL/L (20-31); CHLORIDE LEVEL 105 MMOL/L (98-107); CREATININE FOR GFR 0.82 MG/DL (0.70-1.30); GLOMERULAR FILTRATION RATE > 60.0 (>49); GLUCOSE, FASTING 105 MG/DL (74-106); POTASSIUM SERUM 5.1 MMOL/L (3.5-5.1); SODIUM LEVEL 139 MMOL/L (136-145); TOTAL PROTEIN 6.8 G/DL (5.7-8.2)
== END ==
LOC: M PLALAB 14:48
PROVIDERS: ATTEND Nurse Practitioner Family
DX: D69.6 Thrombocytopenia, unspecified (principal)

== ENCOUNTER 2023-06-22 17:59 | Emergency (ER) | payer MEDICARE, OTHER ==
[~2023-06-22] VITALS: Ht 170.2 cm; Wt 76.8 kg
[~2023-06-22 17:59] MED LIST changes: +SENTTAB2 PO
[2023-06-22 19:13] LABS: BASO % 0.9 % (0.0-1.0); EOS # 0.3 10^3/uL (0.0-0.5); EOS % 6.5 % (0.0-3.0); HEMATOCRIT 41.9 % (42.0-52.0); HEMOGLOBIN 14.1 g/dl (13.5-17.5); LYMPH # 0.3 10^3/uL (1.5-5.0); LYMPH % 7.2 % (24.0-44.0); MEAN CORPUSCULAR HEMOGLOBIN 32.4 pg (27.0-33.0); MEAN CORPUSCULAR HGB CONC 33.7 g/dl (32.0-36.5); MEAN CORPUSCULAR VOLUME 96.3 fl (80.0-96.0); MONO # 0.4 10^3/uL (0.0-0.8); MONO % 8.6 % (2.0-8.0); NEUTROPHILS # 3.3 10^3/uL (1.5-8.5); NEUTROPHILS % 76.3 % (36.0-66.0); PLATELET COUNT, AUTOMATED 101 10^3/uL (150-450); RED BLOOD COUNT 4.35 10^6/uL (4.30-6.10); WHITE BLOOD COUNT 4.3 10^3/uL (4.0-10.0)
[2023-06-22 19:19] LABS: INR 1.76; PROTHROMBIN TIME 19.9 SECONDS (12.5-14.5)
[2023-06-22 19:20] LABS: PARTIAL THROMBOPLASTIN TIME 35.3 SECONDS (24.8-34.2)
[2023-06-22 19:42] LABS: CK-MB VALUE MASS < 1.0 NG/ML (<3.6)
[2023-06-22 19:53] LABS: ALBUMIN 2.3 G/DL (3.2-5.2); ALKALINE PHOSPHATASE 71 U/L (46-116); ALT/SGPT 26 U/L (7.0-40); AST/SGOT 38 U/L (<34); BILIRUBIN,DIRECT 1.3 MG/DL (<0.4); BILIRUBIN,TOTAL 2.9 MG/DL (0.3-1.2); BLOOD UREA NITROGEN 11 MG/DL (9-23); CALCIUM LEVEL 8.4 MG/DL (8.3-10.6); CARBON DIOXIDE LEVEL 29 MMOL/L (20-31); CHLORIDE LEVEL 105 MMOL/L (98-107); CPK CREATINE PHOSPHOKINASE 60 U/L (46-171); CREATININE FOR GFR 0.69 MG/DL (0.70-1.30); GLOMERULAR FILTRATION RATE > 60.0 (>49); GLUCOSE, FASTING 100 MG/DL (74-106); MB/CK RELATIVE INDEX 1.66 (< OR =4); POTASSIUM SERUM 4.2 MMOL/L (3.5-5.1); SODIUM LEVEL 138 MMOL/L (136-145); TOTAL PROTEIN 6.2 G/DL (5.7-8.2)
[2023-06-22] MEDS: FUROSEMIDE 40MG/4ML VIAL IV ONE (19:58)
[2023-06-22] MEDS: KETOROLAC 30 MG/ML 1ML VIAL IV ONE (21:02)
[2023-06-22 21:43] VITALS: BP 103/62; TEMP 97.3; O2SAT 97
== END 2023-06-22 21:55 | disposition home or self-care (01) ==
LOC: M ED 17:59 → EDBD 17:59 → M ED 21:55
DX: S60.311A Abrasion of right thumb, initial encounter (principal); S00.31XA Abrasion of nose, initial encounter; M25.461 Effusion, right knee; W01.0XXA Fall on same level from slipping, tripping and stumbling without subsequent striking against object, initial encounter; K74.60 Unspecified cirrhosis of liver; F10.10 Alcohol abuse, uncomplicated; I48.91 Unspecified atrial fibrillation; I10 Essential (primary) hypertension; Z86.79 Personal history of other diseases of the circulatory system; Y92.513 Shop (commercial) as the place of occurrence of the external cause; Y93.89 Activity, other specified; Y99.9 Unspecified external cause status; Z79.01 Long term (current) use of anticoagulants; Z79.899 Other long term (current) drug therapy
CPT/HCPCS: 70450; 71045; 73130; 73564; 80048; 80076; 82550; 82553; 83605; 84484; 85025; 85610; 85730; 93005; 93041; 94760; 96374; 96375; 99285; J1885; J1940

== ENCOUNTER → 2023-06-24 | Outpatient (CLI) | payer MEDICARE, OTHER ==
[2023-06-24 07:17] LABS: BASO # 0.1 10^3/uL (0.0-0.2); BASO % 1.2 % (0.0-1.0); EOS # 0.3 10^3/uL (0.0-0.5); EOS % 6.4 % (0.0-3.0); HEMATOCRIT 43.3 % (42.0-52.0); HEMOGLOBIN 14.5 g/dl (13.5-17.5); LYMPH # 0.4 10^3/uL (1.5-5.0); LYMPH % 9.7 % (24.0-44.0); MEAN CORPUSCULAR HEMOGLOBIN 32.2 pg (27.0-33.0); MEAN CORPUSCULAR HGB CONC 33.5 g/dl (32.0-36.5); MONO # 0.4 10^3/uL (0.0-0.8); NEUTROPHILS # 3.1 10^3/uL (1.5-8.5); NEUTROPHILS % 72.2 % (36.0-66.0); PLATELET COUNT, AUTOMATED 132 10^3/uL (150-450); RED BLOOD COUNT 4.51 10^6/uL (4.30-6.10); WHITE BLOOD COUNT 4.2 10^3/uL (4.0-10.0)
[2023-06-24 07:36] LABS: INR 1.67; PROTHROMBIN TIME 19.1 SECONDS (12.5-14.5)
[2023-06-24 07:40] LABS: ALBUMIN 2.5 G/DL (3.2-5.2); ALKALINE PHOSPHATASE 75 U/L (46-116); ALT/SGPT 23 U/L (7.0-40); AST/SGOT 32 U/L (<34); BILIRUBIN,TOTAL 2.1 MG/DL (0.3-1.2); BLOOD UREA NITROGEN 12 MG/DL (9-23); CALCIUM LEVEL 8.5 MG/DL (8.3-10.6); CARBON DIOXIDE LEVEL 33 MMOL/L (20-31); CHLORIDE LEVEL 100 MMOL/L (98-107); CREATININE FOR GFR 0.82 MG/DL (0.70-1.30); GLOMERULAR FILTRATION RATE > 60.0 (>49); GLUCOSE, FASTING 111 MG/DL (74-106); SODIUM LEVEL 137 MMOL/L (136-145); TOTAL PROTEIN 6.5 G/DL (5.7-8.2)
== END ==
LOC: M RAD 06:39 → M LAB 06:39
PROVIDERS: ATTEND Internal Medicine Gastroenterology
DX: K74.60 Unspecified cirrhosis of liver (principal); J90 Pleural effusion, not elsewhere classified

== ENCOUNTER → 2023-08-01 | Outpatient (CLI) | payer MEDICARE, OTHER | LOC: M RAD 15:56 | PROVIDERS: ATTEND Internal Medicine Pulmonary Disease | DX: R91.8 Other nonspecific abnormal finding of lung field (principal); I25.10 Atherosclerotic heart disease of native coronary artery without angina pectoris; J90 Pleural effusion, not elsewhere classified; J98.11 Atelectasis; K74.60 Unspecified cirrhosis of liver; R16.1 Splenomegaly, not elsewhere classified; K80.20 Calculus of gallbladder without cholecystitis without obstruction; N62 Hypertrophy of breast ==

== ENCOUNTER 2023-09-13 13:17 | Inpatient (IN) | payer MEDICARE, OTHER ==
[~2023-09-13] VITALS: Ht 170.2 cm; Wt 89.0 kg
[2023-09-13] MEDS: METOPROLOL 5 MG/5 ML VIAL IV SCH (14:15)
[2023-09-13] MEDS: NS 1,000 ML IV ONE (14:15)
[2023-09-13 14:28] LABS: BASO % 0.7 % (0.0-1.0); EOS # 0.1 10^3/uL (0.0-0.5); EOS % 2.7 % (0.0-3.0); HEMATOCRIT 44.9 % (42.0-52.0); HEMOGLOBIN 15.2 g/dl (13.5-17.5); LYMPH # 0.3 10^3/uL (1.5-5.0); LYMPH % 7.2 % (24.0-44.0); MEAN CORPUSCULAR HEMOGLOBIN 32.7 pg (27.0-33.0); MEAN CORPUSCULAR HGB CONC 33.9 g/dl (32.0-36.5); MEAN CORPUSCULAR VOLUME 96.6 fl (80.0-96.0); MONO # 0.4 10^3/uL (0.0-0.8); MONO % 9.8 % (2.0-8.0); NEUTROPHILS # 3.5 10^3/uL (1.5-8.5); NEUTROPHILS % 79.2 % (36.0-66.0); RED BLOOD COUNT 4.65 10^6/uL (4.30-6.10); WHITE BLOOD COUNT 4.5 10^3/uL (4.0-10.0)
[2023-09-13 15:03] LABS: PLATELET COUNT, AUTOMATED 99 10^3/uL (150-450)
[2023-09-13 15:31] LABS: CK-MB VALUE MASS < 1.0 NG/ML (<3.6)
[2023-09-13 15:33] LABS: ALBUMIN 2.1 G/DL (3.2-5.2); ALKALINE PHOSPHATASE 92 U/L (46-116); ALT/SGPT 20 U/L (7.0-40); AST/SGOT 36 U/L (<34); BILIRUBIN,DIRECT 0.9 MG/DL (<0.4); BILIRUBIN,TOTAL 1.9 MG/DL (0.3-1.2); BLOOD UREA NITROGEN 12 MG/DL (9-23); CARBON DIOXIDE LEVEL 31 MMOL/L (20-31); CHLORIDE LEVEL 105 MMOL/L (98-107); CREATININE FOR GFR 0.85 MG/DL (0.70-1.30); GLOMERULAR FILTRATION RATE > 60.0 (>49); GLUCOSE, FASTING 107 MG/DL (74-106); MAGNESIUM LEVEL 1.5 MG/DL (1.8-2.4); SODIUM LEVEL 139 MMOL/L (136-145); TOTAL PROTEIN 6.1 G/DL (5.7-8.2)
[2023-09-13 15:34] LABS: THYROXINE (T4) 6.1 UG/DL (4.5-10.9)
[2023-09-13 15:35] LABS: THYROID STIMULATING HORMONE 1.704 uIU/ML (0.55-4.78)
[2023-09-13 15:36] LABS: CPK CREATINE PHOSPHOKINASE 69 U/L (46-171); MB/CK RELATIVE INDEX 1.44 (< OR =4)
[2023-09-13] MEDS: NS 500 ML IV ONE (16:34)
[2023-09-13] MEDS: MAG SULF 1GM/100ML (MAG RUN) 1 GM in IV 1 EA IV ONE (16:34)
[2023-09-13 16:44] LABS: CK-MB VALUE MASS < 1.0 NG/ML (<3.6)
[2023-09-13 16:46] LABS: CPK CREATINE PHOSPHOKINASE 65 U/L (46-171); MB/CK RELATIVE INDEX 1.53 (< OR =4)
[2023-09-13] MEDS ORDERED: DIGO0.123 PO (18:08)
[2023-09-13] MEDS ORDERED: ASPI-655 PO (18:08)
[2023-09-13] MEDS ORDERED: HOME MED LIST COMPLETE! XX SCH (18:10)
[2023-09-13 18:13] LABS: DIGOXIN LEVEL < 0.1 NG/ML (0.8-2.0)
[2023-09-13] MEDS: DIGOXIN INJ 0.5 MG/2 ML AMP IV STA (18:41)
[2023-09-13] MEDS ORDERED: MOM 30ML SUSPENSION UDC PO PRN (19:35)
[2023-09-13] MEDS ORDERED: ASPIRIN 81MG CHEW TABLET PO PRN (19:35)
[2023-09-13] MEDS: APIXABAN 5 MG TAB (ELIQUIS) PO SCH (21:20)
[2023-09-13] MEDS: DOCUSATE SODIUM 100MG CAPSULE PO SCH (21:20)
[2023-09-13] MEDS: METOPROLOL TARTRATE 100MG TAB PO SCH (21:20)
[2023-09-14] VITALS (7 sets, daily range): BP systolic 92–121; BP diastolic 61–78; TEMP 97.2–98.2; O2SAT 90–96
[2023-09-14] MEDS: DIGOXIN INJ 0.5 MG/2 ML AMP IV SCH (00:48)
[2023-09-14 03:04] LABS: HEMATOCRIT 42.2 % (42.0-52.0); HEMOGLOBIN 13.9 g/dl (13.5-17.5); MEAN CORPUSCULAR HEMOGLOBIN 32.4 pg (27.0-33.0); MEAN CORPUSCULAR HGB CONC 32.9 g/dl (32.0-36.5); MEAN CORPUSCULAR VOLUME 98.4 fl (80.0-96.0); RED BLOOD COUNT 4.29 10^6/uL (4.30-6.10); WHITE BLOOD COUNT 2.7 10^3/uL (4.0-10.0)
[2023-09-14 03:05] LABS: PLATELET COUNT, AUTOMATED 75 10^3/uL (150-450)
[2023-09-14 03:39] LABS: ALKALINE PHOSPHATASE 73 U/L (46-116); ALT/SGPT 19 U/L (7.0-40); AST/SGOT 30 U/L (<34); BILIRUBIN,TOTAL 2.5 MG/DL (0.3-1.2); BLOOD UREA NITROGEN 10 MG/DL (9-23); CALCIUM LEVEL 8.1 MG/DL (8.3-10.6); CARBON DIOXIDE LEVEL 30 MMOL/L (20-31); CHLORIDE LEVEL 106 MMOL/L (98-107); CREATININE FOR GFR 0.67 MG/DL (0.70-1.30); GLOMERULAR FILTRATION RATE > 60.0 (>49); GLUCOSE, FASTING 126 MG/DL (74-106); POTASSIUM SERUM 3.9 MMOL/L (3.5-5.1); SODIUM LEVEL 140 MMOL/L (136-145); TOTAL PROTEIN 5.8 G/DL (5.7-8.2)
[2023-09-14] MEDS: MAG SULF 1GM/100ML (MAG RUN) 1 GM in IV 1 EA IV ONE ×2 (04:45→08:46)
[2023-09-14] MEDS: DIGOXIN 0.125 MG TAB PO SCH (12:41)
[2023-09-15] VITALS (7 sets, daily range): BP systolic 100–118; BP diastolic 61–85; TEMP 96.5–97.4; O2SAT 92–97
[2023-09-15 05:36] LABS: BASO % 0.7 % (0.0-1.0); EOS # 0.1 10^3/uL (0.0-0.5); EOS % 2.2 % (0.0-3.0); HEMATOCRIT 40.6 % (42.0-52.0); HEMOGLOBIN 13.6 g/dl (13.5-17.5); LYMPH # 0.4 10^3/uL (1.5-5.0); MEAN CORPUSCULAR HEMOGLOBIN 32.8 pg (27.0-33.0); MEAN CORPUSCULAR HGB CONC 33.5 g/dl (32.0-36.5); MEAN CORPUSCULAR VOLUME 97.8 fl (80.0-96.0); MONO # 0.4 10^3/uL (0.0-0.8); MONO % 7.8 % (2.0-8.0); NEUTROPHILS # 3.6 10^3/uL (1.5-8.5); NEUTROPHILS % 81.1 % (36.0-66.0); RED BLOOD COUNT 4.15 10^6/uL (4.30-6.10); WHITE BLOOD COUNT 4.5 10^3/uL (4.0-10.0)
[2023-09-15 05:37] LABS: PLATELET COUNT, AUTOMATED 93 10^3/uL (150-450)
[2023-09-15 06:08] LABS: DIGOXIN LEVEL 1.3 NG/ML (0.8-2.0)
[2023-09-15 06:09] LABS: ALBUMIN 1.9 G/DL (3.2-5.2); ALKALINE PHOSPHATASE 67 U/L (46-116); ALT/SGPT 18 U/L (7.0-40); AST/SGOT 21 U/L (<34); BILIRUBIN,TOTAL 2.1 MG/DL (0.3-1.2); BLOOD UREA NITROGEN 12 MG/DL (9-23); CALCIUM LEVEL 7.9 MG/DL (8.3-10.6); CARBON DIOXIDE LEVEL 28 MMOL/L (20-31); CHLORIDE LEVEL 106 MMOL/L (98-107); CREATININE FOR GFR 0.66 MG/DL (0.70-1.30); GLOMERULAR FILTRATION RATE > 60.0 (>49); GLUCOSE, FASTING 100 MG/DL (74-106); MAGNESIUM LEVEL 1.8 MG/DL (1.8-2.4); POTASSIUM SERUM 4.3 MMOL/L (3.5-5.1); SODIUM LEVEL 138 MMOL/L (136-145); TOTAL PROTEIN 5.7 G/DL (5.7-8.2)
== END 2023-09-15 15:47 | disposition home or self-care (01) | DRG 309 ==
LOC: M ED 13:17 → M ED INP 19:32 → M PCU 09-14 00:20
PROVIDERS: ADMIT Family Medicine; ATTEND Family Medicine
PROC: B246ZZZ Ultrasonography of Right and Left Heart (ICD-10-PCS; principal; 2023-09-15)
DX: I48.91 Unspecified atrial fibrillation (principal); I50.32 Chronic diastolic (congestive) heart failure; K75.81 Nonalcoholic steatohepatitis (NASH); I11.0 Hypertensive heart disease with heart failure; E83.42 Hypomagnesemia; D69.6 Thrombocytopenia, unspecified; D72.819 Decreased white blood cell count, unspecified; Z79.01 Long term (current) use of anticoagulants; Z79.899 Other long term (current) drug therapy

== ENCOUNTER 2023-10-10 12:53 | Emergency (ER) | payer MEDICARE ==
[~2023-10-10] VITALS: Ht 172.7 cm; Wt 87.7 kg
[~2023-10-10 12:53] MED LIST changes: +ASPI-655 PO
[2023-10-10 13:56] LABS: VENOUS BASE EXCESS 1.2 (-2.0-2.0); VENOUS HCO3 29.2 MMOL/L (23.0-27.0); VENOUS O2 SATURATION 48.1 % (60.0-80.0); VENOUS PARTIAL PRESSURE CO2 59.9 mmHg (38.0-50.0); VENOUS PARTIAL PRESSURE O2 28.9 mmHg (30.0-50.0); VENOUS PH 7.306 UNITS (7.330-7.430); VENOUS STANDARD HCO3 24.2 MMOL/L; VENOUS TOTAL CO2 31.1 MMOL/L (24.0-28.0)
[2023-10-10 14:02] LABS: BASO % 1.2 % (0.0-1.0); EOS # 0.2 10^3/uL (0.0-0.5); EOS % 5.6 % (0.0-3.0); HEMATOCRIT 45.6 % (42.0-52.0); HEMOGLOBIN 14.9 g/dl (13.5-17.5); LYMPH # 0.3 10^3/uL (1.5-5.0); LYMPH % 9.3 % (24.0-44.0); MEAN CORPUSCULAR HEMOGLOBIN 32.3 pg (27.0-33.0); MEAN CORPUSCULAR HGB CONC 32.7 g/dl (32.0-36.5); MEAN CORPUSCULAR VOLUME 98.9 fl (80.0-96.0); MONO # 0.3 10^3/uL (0.0-0.8); MONO % 10.5 % (2.0-8.0); NEUTROPHILS # 2.4 10^3/uL (1.5-8.5); NEUTROPHILS % 73.1 % (36.0-66.0); RED BLOOD COUNT 4.61 10^6/uL (4.30-6.10); WHITE BLOOD COUNT 3.2 10^3/uL (4.0-10.0)
[2023-10-10 14:06] LABS: PLATELET COUNT, AUTOMATED 77 10^3/uL (150-450)
[2023-10-10 14:12] LABS: INR 1.88; PARTIAL THROMBOPLASTIN TIME 33.7 SECONDS (24.8-34.2); PROTHROMBIN TIME 20.9 SECONDS (12.5-14.5)
[2023-10-10 14:31] LABS: CK-MB VALUE MASS < 1.0 NG/ML (<3.6)
[2023-10-10 14:33] LABS: ALBUMIN 2.3 G/DL (3.2-5.2); ALKALINE PHOSPHATASE 91 U/L (46-116); ALT/SGPT 23 U/L (7.0-40); AST/SGOT 33 U/L (<34); BILIRUBIN,DIRECT 1.6 MG/DL (<0.4); BILIRUBIN,TOTAL 4.2 MG/DL (0.3-1.2); BLOOD UREA NITROGEN 11 MG/DL (9-23); CALCIUM LEVEL 8.5 MG/DL (8.3-10.6); CARBON DIOXIDE LEVEL 34 MMOL/L (20-31); CHLORIDE LEVEL 105 MMOL/L (98-107); CPK CREATINE PHOSPHOKINASE 56 U/L (46-171); CREATININE FOR GFR 0.72 MG/DL (0.70-1.30); GLOMERULAR FILTRATION RATE > 60.0 (>49); GLUCOSE, FASTING 104 MG/DL (74-106); MB/CK RELATIVE INDEX 1.78 (< OR =4); SODIUM LEVEL 139 MMOL/L (136-145); TOTAL PROTEIN 6.4 G/DL (5.7-8.2)
[2023-10-10 14:58] LABS: MAGNESIUM LEVEL 1.5 MG/DL (1.8-2.4)
[2023-10-10 15:00] LABS: DIGOXIN LEVEL 0.5 NG/ML (0.8-2.0)
[2023-10-10 15:21] LABS: CK-MB VALUE MASS < 1.0 NG/ML (<3.6)
[2023-10-10 15:23] LABS: CPK CREATINE PHOSPHOKINASE 59 U/L (46-171); MB/CK RELATIVE INDEX 1.69 (< OR =4)
[2023-10-10 15:28] VITALS: O2SAT 93
[2023-10-10] MEDS ORDERED: ISOVUE-370 76% 100ML VIAL As Ordered ONE (15:28)
[2023-10-10] MEDS: MAG SULF 1GM/100ML (MAG RUN) 1 GM in IV 1 EA IV SCH (15:51)
[2023-10-10 18:30] VITALS: BP 128/80
[2023-10-10] MEDS ORDERED: FURO20TA2 PO (18:44)
[2023-10-10] MEDS ORDERED: DIGO0.253 PO (18:49)
[2023-10-10] MEDS ORDERED: MAGN400T2 PO (18:50)
[2023-10-10] MEDS ORDERED: POTA10CA70 PO (18:55)
[2023-10-10 18:58] VITALS: O2SAT 96
[2023-10-10 19:11] VITALS: TEMP 98
== END 2023-10-10 19:13 | disposition home or self-care (01) ==
LOC: EDBD 12:53 → M ED 12:53
DX: I48.91 Unspecified atrial fibrillation (principal); I50.9 Heart failure, unspecified; E83.42 Hypomagnesemia; K75.81 Nonalcoholic steatohepatitis (NASH); I51.7 Cardiomegaly; I10 Essential (primary) hypertension; E78.5 Hyperlipidemia, unspecified; D69.6 Thrombocytopenia, unspecified; Z79.01 Long term (current) use of anticoagulants; Z79.899 Other long term (current) drug therapy
CPT/HCPCS: 71045; 74177; 80048; 80076; 80162; 82140; 82550; 82553; 82803; 83735; 83880; 84484; 85025; 85049; 85055; 85610; 85730; 93005; 93041; 94760; 96365; 96366; 99285; G0463; J3475; Q9967

== ENCOUNTER → 2023-10-26 | Outpatient (CLI) | payer MEDICARE ==
[~2023-10-26] MED LIST changes: +DIGO0.253 PO; +FURO20TA2 PO; +MAGN400T2 PO; +POTA10CA70 PO
[2023-10-26 19:33] LABS: DIGOXIN LEVEL 1.8 NG/ML (0.8-2.0)
[2023-10-26 19:35] LABS: BLOOD UREA NITROGEN 13 MG/DL (9-23); CALCIUM LEVEL 9.7 MG/DL (8.3-10.6); CARBON DIOXIDE LEVEL 29 MMOL/L (20-31); CHLORIDE LEVEL 104 MMOL/L (98-107); CREATININE FOR GFR 0.78 MG/DL (0.70-1.30); GLOMERULAR FILTRATION RATE > 60.0 (>49); GLUCOSE, FASTING 74 MG/DL (74-106); MAGNESIUM LEVEL 1.6 MG/DL (1.8-2.4); POTASSIUM SERUM 5.5 MMOL/L (3.5-5.1); SODIUM LEVEL 139 MMOL/L (136-145)
== END ==
LOC: M PLALAB 15:45
PROVIDERS: ATTEND Nurse Practitioner Family
DX: I48.0 Paroxysmal atrial fibrillation (principal)

== ENCOUNTER 2023-12-06 10:54 | Observation (INO) | payer MEDICARE, OTHER ==
[~2023-12-06] VITALS: Ht 170.2 cm; Wt 85.2 kg
[2023-12-06] MEDS ORDERED: DIGO0.253 PO (11:05)
[2023-12-06 11:19] LABS: BASO # 0.1 10^3/uL (0.0-0.2); BASO % 1.1 % (0.0-1.0); EOS # 0.4 10^3/uL (0.0-0.5); EOS % 5.2 % (0.0-3.0); HEMATOCRIT 48.1 % (42.0-52.0); HEMOGLOBIN 16.1 g/dl (13.5-17.5); LYMPH # 0.7 10^3/uL (1.5-5.0); LYMPH % 9.8 % (24.0-44.0); MEAN CORPUSCULAR HEMOGLOBIN 31.9 pg (27.0-33.0); MEAN CORPUSCULAR HGB CONC 33.5 g/dl (32.0-36.5); MEAN CORPUSCULAR VOLUME 95.2 fl (80.0-96.0); MONO # 0.8 10^3/uL (0.0-0.8); MONO % 11.2 % (2.0-8.0); NEUTROPHILS # 5.1 10^3/uL (1.5-8.5); PLATELET COUNT, AUTOMATED 131 10^3/uL (150-450); RED BLOOD COUNT 5.05 10^6/uL (4.30-6.10); WHITE BLOOD COUNT 7.1 10^3/uL (4.0-10.0)
[2023-12-06 11:50] LABS: BLOOD UREA NITROGEN 12 MG/DL (9-23); CALCIUM LEVEL 8.4 MG/DL (8.3-10.6); CARBON DIOXIDE LEVEL 36 MMOL/L (20-31); CHLORIDE LEVEL 98 MMOL/L (98-107); CK-MB VALUE MASS < 1.0 NG/ML (<3.6); CPK CREATINE PHOSPHOKINASE 49 U/L (46-171); CREATININE FOR GFR 0.95 MG/DL (0.70-1.30); GLOMERULAR FILTRATION RATE > 60.0 (>49); GLUCOSE, FASTING 109 MG/DL (74-106); MB/CK RELATIVE INDEX 2.04 (< OR =4); POTASSIUM SERUM 5.2 MMOL/L (3.5-5.1); SODIUM LEVEL 136 MMOL/L (136-145)
[2023-12-06 12:50] LABS: CK-MB VALUE MASS < 1.0 NG/ML (<3.6); CPK CREATINE PHOSPHOKINASE 51 U/L (46-171); MB/CK RELATIVE INDEX 1.96 (< OR =4)
[2023-12-06] MEDS ORDERED: ISOVUE-370 76% 100ML VIAL As Ordered ONE (13:27)
[2023-12-06] MEDS: FUROSEMIDE 40MG/4ML VIAL IV ONE (14:59)
[2023-12-06] MEDS ORDERED: HOME MED LIST COMPLETE! XX SCH (18:15)
[2023-12-06 20:16] LABS: ALBUMIN 2.3 G/DL (3.2-5.2); ALKALINE PHOSPHATASE 98 U/L (46-116); ALT/SGPT 22 U/L (7.0-40); AST/SGOT 28 U/L (<34); BILIRUBIN,DIRECT 1.1 MG/DL (<0.4); BILIRUBIN,TOTAL 2.7 MG/DL (0.3-1.2); TOTAL PROTEIN 6.3 G/DL (5.7-8.2)
[2023-12-06] MEDS: METOPROLOL TART 25 MG TABLET PO SCH (20:55)
[2023-12-06] MEDS: APIXABAN 5 MG TAB (ELIQUIS) PO SCH (21:13)
[2023-12-07 05:50] VITALS: BP 111/62
[2023-12-07 07:02] LABS: HEMATOCRIT 44.4 % (42.0-52.0); HEMOGLOBIN 14.8 g/dl (13.5-17.5); MEAN CORPUSCULAR HEMOGLOBIN 32.1 pg (27.0-33.0); MEAN CORPUSCULAR HGB CONC 33.3 g/dl (32.0-36.5); MEAN CORPUSCULAR VOLUME 96.3 fl (80.0-96.0); RED BLOOD COUNT 4.61 10^6/uL (4.30-6.10); WHITE BLOOD COUNT 3.4 10^3/uL (4.0-10.0)
[2023-12-07 07:16] LABS: PLATELET COUNT, AUTOMATED 77 10^3/uL (150-450)
[2023-12-07 07:32] LABS: BLOOD UREA NITROGEN 13 MG/DL (9-23); CALCIUM LEVEL 8.6 MG/DL (8.3-10.6); CARBON DIOXIDE LEVEL 34 MMOL/L (20-31); CHLORIDE LEVEL 102 MMOL/L (98-107); CREATININE FOR GFR 0.68 MG/DL (0.70-1.30); GLOMERULAR FILTRATION RATE > 60.0 (>49); GLUCOSE, FASTING 91 MG/DL (74-106); MAGNESIUM LEVEL 1.7 MG/DL (1.8-2.4); POTASSIUM SERUM 4.3 MMOL/L (3.5-5.1); SODIUM LEVEL 139 MMOL/L (136-145)
[2023-12-07] MEDS: MIDODRINE 5 MG TAB PO SCH (08:39)
[2023-12-07] MEDS ORDERED: MIDO5TA PO (09:27)
[2023-12-07] MEDS ORDERED: METO100T5 PO (09:27)
[2023-12-07 10:45] VITALS: O2SAT 95
[2023-12-07 10:49] VITALS: BP 122/73; TEMP 98.2
== END 2023-12-07 11:05 | disposition home or self-care (01) ==
LOC: M ED 10:54 → EDBD 10:54 → M ED INP 10:55
PROVIDERS: ADMIT Internal Medicine; ATTEND Internal Medicine
DX: T46.0X1A Poisoning by cardiac-stimulant glycosides and drugs of similar action, accidental (unintentional), initial encounter (principal); R00.1 Bradycardia, unspecified; I48.91 Unspecified atrial fibrillation; Z79.01 Long term (current) use of anticoagulants; K75.81 Nonalcoholic steatohepatitis (NASH); I86.4 Gastric varices; I81 Portal vein thrombosis; D69.6 Thrombocytopenia, unspecified; Z79.899 Other long term (current) drug therapy; E87.5 Hyperkalemia
CPT/HCPCS: 36415; 71045; 71275; 80048; 80076; 80162; 82550; 82553; 83735; 83880; 84484; 85025; 85027; 85049; 85055; 93005; 93041; 94760; 96374; 99285; G0378; J1940; Q9967

== ENCOUNTER → 2023-12-07 | Outpatient (CLI) | payer MEDICARE ==
[~2023-12-07] MED LIST changes: +AMIL5TAB4 PO; +MAGN400T35 PO; +MIDO5TA PO
== END ==
LOC: M EKG 11:20
PROVIDERS: ATTEND Internal Medicine
DX: R00.1 Bradycardia, unspecified (principal); I48.91 Unspecified atrial fibrillation; I48.92 Unspecified atrial flutter

== ENCOUNTER → 2023-12-27 | Outpatient (CLI) | payer MEDICARE, MEDICAID ==
[~2023-12-27] MED LIST changes: -AMIL5TAB4 PO; -MAGN400T35 PO
[2023-12-27 14:17] LABS: BLOOD UREA NITROGEN 17 MG/DL (9-23); CALCIUM LEVEL 9.8 MG/DL (8.3-10.6); CARBON DIOXIDE LEVEL 32 MMOL/L (20-31); CHLORIDE LEVEL 106 MMOL/L (98-107); CREATININE FOR GFR 0.92 MG/DL (0.70-1.30); GLOMERULAR FILTRATION RATE > 60.0 (>49); GLUCOSE, FASTING 138 MG/DL (74-106); MAGNESIUM LEVEL 1.8 MG/DL (1.8-2.4); SODIUM LEVEL 138 MMOL/L (136-145)
== END ==
LOC: M PLALAB 10:20
PROVIDERS: ATTEND Nurse Practitioner Family
DX: R00.1 Bradycardia, unspecified (principal)

== ENCOUNTER 2024-02-01 11:52 | Emergency (ER) | payer MEDICAID, MEDICARE ==
[~2024-02-01] VITALS: Ht 170.2 cm; Wt 79.8 kg
[~2024-02-01 11:52] MED LIST changes: +AMIL5TAB4 PO; +MAGN400T35 PO
[2024-02-01] MEDS: FUROSEMIDE 40 MG TAB PO ONE (14:07)
[2024-02-01] MEDS: METOPROLOL TARTRATE 100MG TAB PO ONE (14:07)
[2024-02-01] MEDS: APIXABAN 5 MG TAB (ELIQUIS) PO ONE (14:07)
[2024-02-01 14:10] LABS: BASO # 0.1 10^3/uL (0.0-0.2); EOS # 0.2 10^3/uL (0.0-0.5); EOS % 3.6 % (0.0-3.0); HEMATOCRIT 46.8 % (42.0-52.0); HEMOGLOBIN 15.8 g/dl (13.5-17.5); LYMPH # 0.4 10^3/uL (1.5-5.0); LYMPH % 7.5 % (24.0-44.0); MEAN CORPUSCULAR HEMOGLOBIN 32.1 pg (27.0-33.0); MEAN CORPUSCULAR HGB CONC 33.8 g/dl (32.0-36.5); MEAN CORPUSCULAR VOLUME 95.1 fl (80.0-96.0); MONO # 0.7 10^3/uL (0.0-0.8); MONO % 11.4 % (2.0-8.0); NEUTROPHILS # 4.4 10^3/uL (1.5-8.5); NEUTROPHILS % 75.5 % (36.0-66.0); RED BLOOD COUNT 4.92 10^6/uL (4.30-6.10); WHITE BLOOD COUNT 5.9 10^3/uL (4.0-10.0)
[2024-02-01 14:15] LABS: PLATELET COUNT, AUTOMATED 84 10^3/uL (150-450)
[2024-02-01 14:19] LABS: INR 1.81; PROTHROMBIN TIME 20.4 SECONDS (12.5-14.5)
[2024-02-01 14:30] LABS: ALBUMIN 2.3 G/DL (3.2-5.2); ALKALINE PHOSPHATASE 81 U/L (46-116); ALT/SGPT 28 U/L (7.0-40); AST/SGOT 43 U/L (<34); BILIRUBIN,DIRECT 1.4 MG/DL (<0.4); BILIRUBIN,TOTAL 3.2 MG/DL (0.3-1.2); BLOOD UREA NITROGEN 15 MG/DL (9-23); CALCIUM LEVEL 9.1 MG/DL (8.3-10.6); CARBON DIOXIDE LEVEL 37 MMOL/L (20-31); CHLORIDE LEVEL 102 MMOL/L (98-107); CREATININE FOR GFR 0.93 MG/DL (0.70-1.30); DIGOXIN LEVEL 0.9 NG/ML (0.8-2.0); GLOMERULAR FILTRATION RATE > 60.0 (>49); GLUCOSE, FASTING 106 MG/DL (74-106); POTASSIUM SERUM 4.1 MMOL/L (3.5-5.1); SODIUM LEVEL 141 MMOL/L (136-145); TOTAL PROTEIN 6.7 G/DL (5.7-8.2)
[2024-02-01] MEDS: MIDODRINE 5 MG TAB PO SCH (15:41)
[2024-02-01] MEDS ORDERED: MIDO5TA PO (16:09)
[2024-02-01] MEDS ORDERED: HOME MED LIST COMPLETE! XX SCH (16:10)
[2024-02-01] MEDS ORDERED: DIGO0.253 PO (16:20)
[2024-02-01 16:35] VITALS: BP 103/57; TEMP 96.8; O2SAT 98
== END 2024-02-01 17:16 | disposition home or self-care (01) ==
LOC: M ED 11:52
DX: F41.9 Anxiety disorder, unspecified (principal); I48.91 Unspecified atrial fibrillation; I50.22 Chronic systolic (congestive) heart failure; F10.10 Alcohol abuse, uncomplicated; Z79.899 Other long term (current) drug therapy; Z79.810 Long term (current) use of selective estrogen receptor modulators (SERMs)

== ENCOUNTER 2024-02-07 19:15 | Emergency (ER) | payer MEDICARE ==
[~2024-02-07] VITALS: Ht 170.2 cm; Wt 79.5 kg
[2024-02-07 20:55] LABS: VENOUS BASE EXCESS 2.1 (-2.0-2.0); VENOUS HCO3 29.4 MMOL/L (23.0-27.0); VENOUS O2 SATURATION 31.4 % (60.0-80.0); VENOUS PARTIAL PRESSURE CO2 56.4 mmHg (38.0-50.0); VENOUS PARTIAL PRESSURE O2 20.3 mmHg (30.0-50.0); VENOUS PH 7.335 UNITS (7.330-7.430); VENOUS STANDARD HCO3 24.5 MMOL/L; VENOUS TOTAL CO2 31.1 MMOL/L (24.0-28.0)
[2024-02-07 21:01] LABS: BASO # 0.1 10^3/uL (0.0-0.2); BASO % 0.9 % (0.0-1.0); EOS # 0.2 10^3/uL (0.0-0.5); EOS % 3.2 % (0.0-3.0); HEMATOCRIT 44.4 % (42.0-52.0); LYMPH # 0.4 10^3/uL (1.5-5.0); LYMPH % 7.2 % (24.0-44.0); MEAN CORPUSCULAR HEMOGLOBIN 32.1 pg (27.0-33.0); MEAN CORPUSCULAR HGB CONC 33.8 g/dl (32.0-36.5); MEAN CORPUSCULAR VOLUME 94.9 fl (80.0-96.0); MONO # 0.6 10^3/uL (0.0-0.8); MONO % 9.8 % (2.0-8.0); NEUTROPHILS # 4.5 10^3/uL (1.5-8.5); NEUTROPHILS % 78.4 % (36.0-66.0); PLATELET COUNT, AUTOMATED 111 10^3/uL (150-450); RED BLOOD COUNT 4.68 10^6/uL (4.30-6.10); WHITE BLOOD COUNT 5.7 10^3/uL (4.0-10.0)
[2024-02-07 21:13] LABS: INR 1.62; PROTHROMBIN TIME 18.7 SECONDS (12.5-14.5)
[2024-02-07] MEDS: IPRATROPIUM 0.5MG/ALBUTEROL 2.5MG INH SOL UD 3ML (DUONEB) NEB ONE (21:26)
[2024-02-07 21:27] LABS: CK-MB VALUE MASS 1.5 NG/ML (<3.6)
[2024-02-07 21:29] LABS: ALBUMIN 2.4 G/DL (3.2-5.2); ALKALINE PHOSPHATASE 90 U/L (46-116); ALT/SGPT 24 U/L (7.0-40); AST/SGOT 39 U/L (<34); BILIRUBIN,DIRECT 1.1 MG/DL (<0.4); BILIRUBIN,TOTAL 2.7 MG/DL (0.3-1.2); BLOOD UREA NITROGEN 10 MG/DL (9-23); CALCIUM LEVEL 8.9 MG/DL (8.3-10.6); CARBON DIOXIDE LEVEL 32 MMOL/L (20-31); CHLORIDE LEVEL 102 MMOL/L (98-107); CPK CREATINE PHOSPHOKINASE 61 U/L (46-171); CREATININE FOR GFR 0.72 MG/DL (0.70-1.30); GLOMERULAR FILTRATION RATE > 60.0 (>49); GLUCOSE, FASTING 97 MG/DL (74-106); MB/CK RELATIVE INDEX 2.45 (< OR =4); POTASSIUM SERUM 4.1 MMOL/L (3.5-5.1); SODIUM LEVEL 135 MMOL/L (136-145)
[2024-02-07] MEDS: FUROSEMIDE 100MG/10ML VIAL IV ONE (21:31)
[2024-02-07 21:35] LABS: PROCALCITONIN 0.18 ng/ml
[2024-02-07] MEDS ORDERED: ISOVUE-370 76% 100ML VIAL As Ordered ONE (21:53)
[2024-02-07 23:16] LABS: CK-MB VALUE MASS < 1.0 NG/ML (<3.6)
[2024-02-07 23:20] LABS: CPK CREATINE PHOSPHOKINASE 58 U/L (46-171); MB/CK RELATIVE INDEX 1.72 (< OR =4)
[2024-02-08 00:30] VITALS: BP 97/65; TEMP 97.5; O2SAT 95
== END 2024-02-08 00:45 | disposition short-term general hospital (02) ==
LOC: M ED 19:15
DX: I50.22 Chronic systolic (congestive) heart failure (principal); R79.89 Other specified abnormal findings of blood chemistry; K70.31 Alcoholic cirrhosis of liver with ascites; R16.1 Splenomegaly, not elsewhere classified; Z79.01 Long term (current) use of anticoagulants; Z79.899 Other long term (current) drug therapy; Z86.79 Personal history of other diseases of the circulatory system
CPT/HCPCS: 71045; 71275; 80048; 80076; 82550; 82553; 82803; 83605; 83880; 84145; 84484; 85025; 85610; 87040; 87486; 87581; 87633; 87798; 93005; 93041; 94640; 94760; 96374; 99285; J1940; Q9967

== ENCOUNTER → 2024-03-21 | Outpatient (CLI) | payer MEDICARE ==
[2024-03-21 12:11] LABS: HEMATOCRIT 46.8 % (42.0-52.0); HEMOGLOBIN 15.7 g/dl (13.5-17.5); MEAN CORPUSCULAR HEMOGLOBIN 32.1 pg (27.0-33.0); MEAN CORPUSCULAR HGB CONC 33.5 g/dl (32.0-36.5); MEAN CORPUSCULAR VOLUME 95.7 fl (80.0-96.0); PLATELET COUNT, AUTOMATED 127 10^3/uL (150-450); RED BLOOD COUNT 4.89 10^6/uL (4.30-6.10); WHITE BLOOD COUNT 4.9 10^3/uL (4.0-10.0)
[2024-03-21 12:37] LABS: ALBUMIN 2.3 G/DL (3.2-5.2); ALKALINE PHOSPHATASE 103 U/L (40-129); ALT/SGPT 31 U/L (7.0-40); AST/SGOT 66 U/L (<34); BILIRUBIN,TOTAL 1.8 MG/DL (0.3-1.2); BLOOD UREA NITROGEN 12 MG/DL (9-23); CALCIUM LEVEL 8.8 MG/DL (8.3-10.6); CARBON DIOXIDE LEVEL 36 MMOL/L (20-31); CHLORIDE LEVEL 97 MMOL/L (98-107); CHOLESTEROL LEVEL 181 MG/DL (<200); CHOLESTEROL RISK RATIO 5.18 (<5); CREATININE FOR GFR 0.95 MG/DL (0.70-1.30); GLOMERULAR FILTRATION RATE > 60.0 (>49); GLUCOSE, FASTING 129 MG/DL (74-106); HDL CHOLESTEROL 34.9 MG/DL (>40); LDL CHOLESTEROL 128.5 MG/DL (<100); MAGNESIUM LEVEL 1.6 MG/DL (1.8-2.4); NON-HDL-C 146.1 MG/DL; POTASSIUM SERUM 4.2 MMOL/L (3.5-5.1); SODIUM LEVEL 135 MMOL/L (136-145); TOTAL PROTEIN 7.3 G/DL (5.7-8.2); TRIGLYCERIDES LEVEL 88 MG/DL (<150)
== END ==
LOC: M LAB 11:34
PROVIDERS: ATTEND Nurse Practitioner Acute Care
DX: I50.32 Chronic diastolic (congestive) heart failure (principal); I25.10 Atherosclerotic heart disease of native coronary artery without angina pectoris

== ENCOUNTER 2024-03-28 13:18 | Inpatient (IN) | payer MEDICARE ==
[~2024-03-28] VITALS: Ht 165.1 cm; Wt 77.5 kg
[2024-03-28 14:15] LABS: BASO % 0.3 % (0.0-1.0); EOS % 0.1 % (0.0-3.0); HEMATOCRIT 54.1 % (42.0-52.0); HEMOGLOBIN 18.4 g/dl (13.5-17.5); LYMPH # 0.5 10^3/uL (1.5-5.0); LYMPH % 3.7 % (24.0-44.0); MEAN CORPUSCULAR HEMOGLOBIN 31.4 pg (27.0-33.0); MEAN CORPUSCULAR VOLUME 92.3 fl (80.0-96.0); MONO # 1.6 10^3/uL (0.0-0.8); MONO % 11.1 % (2.0-8.0); NEUTROPHILS # 11.7 10^3/uL (1.5-8.5); NEUTROPHILS % 83.7 % (36.0-66.0); PLATELET COUNT, AUTOMATED 120 10^3/uL (150-450); RED BLOOD COUNT 5.86 10^6/uL (4.30-6.10)
[2024-03-28 14:34] LABS: DIGOXIN LEVEL < 0.1 NG/ML (0.8-2.0)
[2024-03-28 14:39] LABS: BLOOD UREA NITROGEN 35 MG/DL (9-23); CARBON DIOXIDE LEVEL 22 MMOL/L (20-31); CHLORIDE LEVEL 85 MMOL/L (98-107); CREATININE FOR GFR 2.42 MG/DL (0.70-1.30); GLOMERULAR FILTRATION RATE 28.6 (>49); GLUCOSE, FASTING 135 MG/DL (74-106); POTASSIUM SERUM 4.6 MMOL/L (3.5-5.1); SODIUM LEVEL 126 MMOL/L (136-145)
[2024-03-28] MEDS: ALPRAZolam 0.25 MG TAB PO ONE (14:39)
[2024-03-28] MEDS: FUROSEMIDE 40MG/4ML VIAL IV ONE (15:30)
[2024-03-28] MEDS ORDERED: METO50TA7 PO (16:18)
[2024-03-28] MEDS ORDERED: ATOR1TAB21 PO (16:18)
[2024-03-28] MEDS ORDERED: HOME MED LIST COMPLETE! XX SCH (16:20)
[2024-03-28] MEDS ORDERED: LORazepam 2 MG TAB PO PRN (17:00)
[2024-03-28 18:18] LABS: ALBUMIN 1.9 G/DL (3.2-5.2); BILIRUBIN,DIRECT 3.4 MG/DL (<0.4); BILIRUBIN,TOTAL 5.3 MG/DL (0.3-1.2); TOTAL PROTEIN 6.2 G/DL (5.7-8.2)
[2024-03-28] MEDS: THIAMINE 100 MG TAB PO SCH (18:43)
[2024-03-28] MEDS: MIDODRINE 5 MG TAB PO SCH (18:43)
[2024-03-28] MEDS: FOLIC ACID 1MG TAB PO SCH (18:43)
[2024-03-28 19:47] LABS: THYROID STIMULATING HORMONE 4.315 uIU/ML (0.55-4.78)
[2024-03-28 19:53] LABS: PROTHROMBIN TIME 77.7 SECONDS (12.5-14.5)
[2024-03-28 19:56] LABS: PROCALCITONIN 0.77 ng/ml
[2024-03-28 20:00] LABS: INR 10.07; VITAMIN B12 LEVEL > 2000 PG/ML (211-911)
[2024-03-28 21:21] VITALS: BP 98/66; TEMP 98.2; O2SAT 96
[2024-03-28 21:50] LABS: BASO % 0.2 % (0.0-1.0); EOS % 0.3 % (0.0-3.0); HEMOGLOBIN 17.8 g/dl (13.5-17.5); LYMPH # 0.6 10^3/uL (1.5-5.0); LYMPH % 5.1 % (24.0-44.0); MEAN CORPUSCULAR HEMOGLOBIN 31.4 pg (27.0-33.0); MEAN CORPUSCULAR HGB CONC 34.9 g/dl (32.0-36.5); MEAN CORPUSCULAR VOLUME 89.9 fl (80.0-96.0); MONO # 1.3 10^3/uL (0.0-0.8); MONO % 10.5 % (2.0-8.0); NEUTROPHILS # 10.2 10^3/uL (1.5-8.5); NEUTROPHILS % 83.4 % (36.0-66.0); PLATELET COUNT, AUTOMATED 113 10^3/uL (150-450); RED BLOOD COUNT 5.67 10^6/uL (4.30-6.10); WHITE BLOOD COUNT 12.3 10^3/uL (4.0-10.0)
[2024-03-28] MEDS: MAG SULF 1GM/100ML (MAG RUN) 1 GM in IV 1 EA IV SCH (21:58)
[2024-03-28] MEDS: APIXABAN 5 MG TAB (ELIQUIS) PO SCH (22:03)
[2024-03-28 22:04] LABS: PROTHROMBIN TIME 80.4 SECONDS (12.5-14.5)
[2024-03-28] MEDS: FUROSEMIDE injection 100 MG, VIAL 2 BAG 13MM ADAPTER 1 EACH in D5W 100 ML IV SCH (22:11)
[2024-03-28 22:23] LABS: ALBUMIN 1.8 G/DL (3.2-5.2); BILIRUBIN,TOTAL 5.1 MG/DL (0.3-1.2); CALCIUM LEVEL 8.4 MG/DL (8.3-10.6); CREATININE FOR GFR 2.69 MG/DL (0.70-1.30); GLOMERULAR FILTRATION RATE 25.3 (>49); POTASSIUM SERUM 4.1 MMOL/L (3.5-5.1)
[2024-03-28 22:58] LABS: INR 10.54
[2024-03-28 23:55] VITALS: BP 93/62; TEMP 96.8; O2SAT 94
[2024-03-29] VITALS (10 sets, daily range): BP systolic 90–104; BP diastolic 54–73; TEMP 96.2–98.2; O2SAT 91–95
[2024-03-29 00:12] LABS: D-DIMER QUANT 7.43 ug/mL (<0.5); PARTIAL THROMBOPLASTIN TIME 52.2 SECONDS (24.8-34.2)
[2024-03-29] MEDS: methylPREDNISolone 40MG 1ML VIAL IV SCH (00:36)
[2024-03-29 01:07] LABS: ETHYL ALCOHOL (ETHANOL) < 0.003 % (0.000-0.010)
[2024-03-29 01:28] LABS: HEPATITIS B SURFACE ANTIGEN NEGATIVE (NEGATIVE)
[2024-03-29 01:41] LABS: HIV 1&2 SCREEN NEGATIVE (NEGATIVE)
[2024-03-29 01:50] LABS: HEPATITIS B CORE ANTIBODY IGM NEGATIVE (NEGATIVE); HEPATITIS C VIRUS ABY INDEX 0.06 INDEX (<0.8)
[2024-03-29 05:06] LABS: HEMATOCRIT 48.8 % (42.0-52.0); HEMOGLOBIN 17.1 g/dl (13.5-17.5); MEAN CORPUSCULAR VOLUME 88.4 fl (80.0-96.0); RED BLOOD COUNT 5.52 10^6/uL (4.30-6.10); WHITE BLOOD COUNT 10.9 10^3/uL (4.0-10.0)
[2024-03-29 05:31] LABS: PLATELET COUNT, AUTOMATED 85 10^3/uL (150-450)
[2024-03-29 06:01] LABS: CALCIUM LEVEL 8.3 MG/DL (8.3-10.6); CREATININE FOR GFR 3.13 MG/DL (0.70-1.30); GLOMERULAR FILTRATION RATE 21.3 (>49)
[2024-03-29] MEDS ORDERED: DOXYCYCLINE HYCLATE 100 MG in DEXTROSE 5% (D5W) MINI-BAG PLU 100 ML IV SCH (06:50)
[2024-03-29 07:59] LABS: D-DIMER QUANT 7.06 ug/mL (<0.5); PARTIAL THROMBOPLASTIN TIME 55.7 SECONDS (24.8-34.2)
[2024-03-29 08:14] LABS: HEPATITIS B SURFACE ANTIBODY NEGATIVE (POSITIVE)
[2024-03-29] MEDS: MULTIVITAMINS/MINERALS THERAP 1 TAB PO SCH (08:17)
[2024-03-29] MEDS: cefTRIAXone SOD 2 GM in DEXTROSE 5% (D5W) ADV/MINI-BAG 50 ML IV SCH (08:17)
[2024-03-29] MEDS: DOXYCYCLINE HYCLATE 100MG TABLET PO SCH (08:17)
[2024-03-29] MEDS: PANTOPRAZOLE 40MG VIAL IV SCH (08:17)
[2024-03-29 08:19] LABS: INR 12.59
[2024-03-29] MEDS: PHYTONADIONE 5 MG TAB PO SCH (08:20)
[2024-03-29 08:26] LABS: HEPATITIS B SURFACE ANTIGEN NEGATIVE (NEGATIVE)
[2024-03-29 08:47] LABS: HEPATITIS B CORE ANTIBODY IGM NEGATIVE (NEGATIVE); HEPATITIS C VIRUS ABY INDEX 0.04 INDEX (<0.8)
[2024-03-29] MEDS ORDERED: ATORVASTATIN 20 MG TAB PO SCH (09:00)
[2024-03-29] MEDS: MIDODRINE 5 MG TAB PO SCH (11:15)
[2024-03-29 19:48] LABS: CREATININE FOR GFR 3.64 MG/DL (0.70-1.30); GLOMERULAR FILTRATION RATE 17.9 (>49)
[2024-03-30 03:39] VITALS: BP 84/60; TEMP 98; O2SAT 90
[2024-03-30 05:12] LABS: HEMATOCRIT 43.5 % (42.0-52.0); HEMOGLOBIN 15.7 g/dl (13.5-17.5); MEAN CORPUSCULAR HGB CONC 36.1 g/dl (32.0-36.5); RED BLOOD COUNT 5.06 10^6/uL (4.30-6.10); WHITE BLOOD COUNT 10.3 10^3/uL (4.0-10.0)
[2024-03-30 05:15] VITALS: BP 86/58; TEMP 97.9; O2SAT 91
[2024-03-30 05:18] LABS: PLATELET COUNT, AUTOMATED 50 10^3/uL (150-450)
[2024-03-30 05:28] LABS: PROTHROMBIN TIME 64.9 SECONDS (12.5-14.5)
[2024-03-30 05:32] LABS: INR 7.95
[2024-03-30 05:33] VITALS: BP 86/56; TEMP 97.6; O2SAT 91
[2024-03-30 05:39] LABS: ALBUMIN 2.2 G/DL (3.2-5.2); BILIRUBIN,DIRECT 4.1 MG/DL (<0.4); BILIRUBIN,TOTAL 5.7 MG/DL (0.3-1.2); CALCIUM LEVEL 7.9 MG/DL (8.3-10.6); CREATININE FOR GFR 4.12 MG/DL (0.70-1.30); GLOMERULAR FILTRATION RATE 15.5 (>49); POTASSIUM SERUM 4.2 MMOL/L (3.5-5.1); TOTAL PROTEIN 5.6 G/DL (5.7-8.2)
[2024-03-30 06:32] VITALS: BP 100/64
[2024-03-30 08:03] VITALS: BP 99/67; TEMP 97.8; O2SAT 92
[2024-03-30 08:29] LABS: MAGNESIUM LEVEL 2.7 MG/DL (1.8-2.4)
[2024-03-30 11:40] VITALS: BP 98/63; TEMP 97.5; O2SAT 91
[2024-03-30] MEDS: FUROSEMIDE injection 100 MG, VIAL 2 BAG 13MM ADAPTER 1 EACH in D5W 100 ML IV SCH (11:45)
[2024-03-30] MEDS: ONDANSETRON 4MG 2ML VIAL IV ONE (11:56)
[2024-03-30] MEDS ORDERED: ACETAMINOPHEN 650MG SUPP PR PRN (14:30)
[2024-03-30] MEDS ORDERED: HYOSCYAMINE SULFATE 0.125 MG SUBL TABLET PO PRN (14:30)
[2024-03-30] MEDS ORDERED: BISACODYL 10MG SUPP PR PRN (14:30)
[2024-03-30] MEDS ORDERED: FLEET ENEMA PR PRN (14:30)
[2024-03-30] MEDS ORDERED: ONDANSETRON 4MG ORAL DISINTEGRATING TAB PO PRN (14:30)
[2024-03-30] MEDS ORDERED: ATROPINE SULFATE 1% OPHTH SOLN 2ML BTL SL PRN (14:30)
[2024-03-30] MEDS ORDERED: ACETAMINOPHEN 325 MG TAB PO PRN (14:30)
[2024-03-30] MEDS: MORPHINE 2 MG/ML 1ML VIAL IV PRN (18:23)
[2024-03-30] MEDS ORDERED: ALBUTEROL 90 MCG/ACT 8GM HFA INHALER INH PRN (18:25)
[2024-03-30] MEDS: MORPHINE 10MG/0.5ML ORAL CONCENTRATE SOLUTION U/D SL PRN (21:17)
[2024-03-30] MEDS: IPRATROPIUM 0.5MG/ALBUTEROL 2.5MG INH SOL UD 3ML (DUONEB) NEB PRN (22:20)
[2024-03-30] MEDS: SCOPOLAMINE 1MG TRANSDERMAL PATCH TOP PRN (22:36)
[2024-03-31] MEDS: LORazepam 1 MG TAB PO PRN (00:56)
[2024-03-31] MEDS: ONDANSETRON 4MG 2ML VIAL IV PRN (01:28)
[2024-03-31] MEDS: LORazepam 2 MG/ML 1ML VIAL IV PRN (13:36)
== END 2024-04-01 08:03 | disposition expired | DRG 291 ==
LOC: M ED 13:18 → M ED INP 16:21 → M PCU 20:52 → M MS5PR 03-31 09:37
PROVIDERS: ADMIT Internal Medicine; ATTEND Internal Medicine
DX: I13.0 Hypertensive heart and chronic kidney disease with heart failure and stage 1 through stage 4 chronic kidney disease, or unspecified chronic kidney disease (principal); G93.41 Metabolic encephalopathy; I50.33 Acute on chronic diastolic (congestive) heart failure; K76.7 Hepatorenal syndrome; K72.00 Acute and subacute hepatic failure without coma; N17.9 Acute kidney failure, unspecified; E87.1 Hypo-osmolality and hyponatremia; I48.19 Other persistent atrial fibrillation; D68.9 Coagulation defect, unspecified; I24.89 Other forms of acute ischemic heart disease; K76.6 Portal hypertension; K70.30 Alcoholic cirrhosis of liver without ascites; F10.20 Alcohol dependence, uncomplicated; F43.21 Adjustment disorder with depressed mood; E78.5 Hyperlipidemia, unspecified; Z95.0 Presence of cardiac pacemaker; R06.01 Orthopnea; D69.6 Thrombocytopenia, unspecified; N18.9 Chronic kidney disease, unspecified; Z79.899 Other long term (current) drug therapy; Z51.5 Encounter for palliative care